=== PATIENT | female | born 1950 | race Caucasian/White ===

== ENCOUNTER → 2016-09-18 | Outpatient (CLI) | payer OTHER ==
[~2016-09-18] MED LIST: /PANT40TA PO; DILA2TAB PO; DIPH50CA PO; DOXY75CA3 PO; LEVS0.123 PO; MIRA255PW PO; REGL10TA6 PO; SENO8.6T9 PO; SING4GRA PO; TENO25TA PO; TRAZ50TA2 PO; VITA250L PO; WELLTAB PO
--- NOTE | 2016-09-24 00:13 | ECWPNPC ---
PATIENT NAME: RICKY GOLDMAN : 1950 GENDER: FEMALE VISIT DATE: 09/18/2016 DISCHARGE DATE: 09/18/16 1141 VISIT LOCKED DATE TIME: PHYSICIAN: ROSA M MCCORMACK RESOURCE: ROSA M MCCORMACK REASON FOR APPOINTMENT 1. BACK PAIN HISTORY OF PRESENT ILLNESS HISTORY OF PRESENT ILLNESS: PAIN THE PATIENT DESCRIBES THE PAIN... 66 YEAR OLD FEMALE PATIENT WITH HISTORY OF CHRONIC BACK PAIN. PATIENT DESCRIBES THE PAIN ACHING, SORE, AND IT COMES AND GOES WITH A PAIN SCORE OF 4/10. PAIN REPORTS THAT THE GABAPENTIN NO LONGER MAKES HER DIZZY, LIGHT HEADED, AND FEELING FOGGY. PATIENT STATES THAT THE GABAPENTIN IS ALSO HELPING WITH THE PAIN IN THE LOWER EXTREMITIES. PATIENT REPORTS OF SLEEPING A LOT BETTER. PATIENT INDICATES THAT IBUPROFEN DOES MAKE HER STOMACH UPSET AND THAT SHE REACTS BADLY TO A LOT OF MEDICATIONS. PATIENT STATES THAT SKETCHING AND VOGA DOES PROVIDE HER WITH SOME PAIN RELIEF. PATIENT REPORTS THAT DILAUDID DID HELP HER GREALTY WITH HER PAIN AND THAT SHE SAW GOOD PAIN RELIEF. PATIENT DENIES UNEXPLAINABLE WEIGHT LOSS, FEVER, CHILLS, NEW CHANGES ON HER URINARY OR BOWEL CONTROL. FALL RISK SCREENING: SCREENING :NO FALLS IN THE PAST YEAR CURRENT MEDICATIONS TAKING GABAPENTIN 300 MG CAPSULE 1 CAPSULE ORALLY 300 MGS IN AM, PM AND 600MGS AT BEDTIME TAKING TRAZODONE 50 50MG TABLET 2 TABLETS ORAL BEFORE BEDTIME TAKING LISINOPRIL 2.5 2.5 MG TABLET ORAL DAILY TAKING BUPROPION HCL (XL) 300 MG TABLET EXTENDED RELEASE 24 HOUR 1 TABLET IN THE MORNING ORALLY ONCE A DAY TAKING OMEPRAZOLE 20MG 20MG TABLET ORAL BID TAKING LEVSIN 0.125 MG TABLET 1 TABLET BEFORE MEALS NEEDED ORALLY EVERY 4 HRS TAKING ONDANSETRON 8 MG TABLET DISPERSIBLE ORALLY PRN TAKING SENNA 8.6 MG CAPSULE 1-2 CAPSULES AT BEDTIME NEEDED ORALLY ONCE A DAY TAKING DIPHENHYDRAMINE HCL 25 MG CAPSULE 1-2 CAPSULE NEEDED ORALLY EVERY 6 HRS PRN TAKING RESTASIS 0.05 % EMULSION 1 NULL INTO AFFECTED EYE OPHTHALMIC TWICE A DAY TAKING MAGNESIUM SULFATE 1 TAB 400MGS ORAL DAILY NOT-TAKING DILAUDID 2 MG TABLET 1 TABLET NEEDED ORALLY DAY PRN FOR PAIN NOT-TAKING PAZEO 0.7 % SOLUTION 1 DROP INTO AFFECTED EYE OPHTHALMIC ONCE A DAY DISCONTINUED MAGNESIUM ASPARTATE 65 MG TABLET 1 TABLET ORALLY ONCE A DAY MEDICATION LIST REVIEWED AND RECONCILED WITH THE PATIENT PAST MEDICAL HISTORY HTN DEPRESSION HIATLE HERNIA GERD PANCREATITUS HEARING LOSS IBS LUPUS RIGHT WRIST FX BILATERAL ANLKE FX OSTEOARTHRITIS ASTHMA MRSA RIGHT HIP ALLERGIES PENICILLIN (FOR ALLERGIES USE ONLY): ANAPHYLAXIS VANCOMYCIN HCL: ANAPHYLAXIS SULFA (FOR ALLERGY USE ONLY): ANAPHYLAXIS LACTOSE INTOLERANTE: GI DISTRESS REGLAN: HYPERTENSION CLINDAMYCIN HCL COMPAZINE CODEINE SULFATE: RESPIRATORY DISTRESS/CONFUSION VERSED: RESPIRATORY DISTRESS/CONFUSION CEPHALOSPORINS: RASH HIVES ERTHROMYCOIN: RASH HIVES KEFLEX: RASH HIVES NSAIDS: GI DISTRESS ASPIRIN: GI DISTRESS MORPHINE: AGGRESSION, CONFUSION AND AGGITATION: SIDE EFFECTS SURGICAL HISTORY COLON RESCECTION SP SPONTAEOUS RUPTURE 1975 HYSTERECTOMY 1988 TOTAL LT HIP 1991 TOTAL RT HIP 1989 OVARIAN CYSTECTOMY 1987 FAMILY HISTORY NO FAMILY HISTORY DOCUMENTED. SOCIAL HISTORY GENERAL: TOBACCO USE ARE YOU A:NONSMOKER LEARNING BARRIERS / SPECIAL NEEDS ORIENTED TO PLAN OF CARE: PATIENT, PAIN MANAGEMENT PATIENT, ORIENTED TO PLAN OF CARE: PATIENT, PAIN MANAGEMENT PATIENT. NEW PATIENT PAIN DIARY TODAY'S VISITNOTES FROM 0-10, WHAT LEVEL IS YOUR PAIN TODAY?0 PAIN CLINIC PFS, CLERGY, PUBLIC HEALTH REFERRALS PFS REFERRAL NEEDED?NO CLERGY REFERRAL NEEDED?NO PUBLIC HEALTH REFERRAL NEEDED?NO WAS THE PROVIDER NOTIFIED OF ANY PERTINENT INFO?NO PFS REFERRAL NEEDED?NO CLERGY REFERRAL NEEDED?NO PUBLIC HEALTH REFERRAL NEEDED?NO WAS THE PROVIDER NOTIFIED OF ANY PERTINENT INFO?NO HOSPITALIZATION/MAJOR DIAGNOSTIC PROCEDURE MRSA TO RIGHT HIP 2009 REVIEW OF SYSTEMS CONSTITUTIONAL: ANY CHANGE IN YOUR MEDICAL CONDITION? NO . CHILLS NO . FEVER NO . INFECTION: DO YOU HAVE NEW INFECTIONS? NO . DO YOU HAVE HISTORY OF MRSA? NO . MUSCULOSKELETAL: ANY NEW PATTERNS OF PAIN OR NUMBNESS? NO . GASTROENTEROLOGY: ANY NEW CHANGE IN BOWEL CONTROL? NO . GENITOURINARY: ANY NEW CHANGE IN BLADDER CONTROL? NO . IS THERE A CHANCE YOU COULD BE ? NO . HEMATOLOGY/LYMPH: DO YOU TAKE ANY BLOOD THINNERS? (FOR EXAMPLE- COUMADIN, PLAVIX, AGGRENOX, PLATEL, PRADAXA, OR XARELTO) NO . WHEN WAS YOUR LAST DOSE? DATE: TIME: . NEUROLOGY: HAVE YOU FALLEN IN THE PAST 6 MONTHS? YES, MULTIPLE TIMES NO INJURIES . ANY NEW EXTREMITY NUMBNESS OR WEAKNESS? NO . CARDIOLOGY: DO YOU HAVE A PACEMAKER OR DEFIBRILLATOR? NO . RESPIRATORY: HAVE YOU BEEN SICK IN THE PAST WEEK? NO . FEVER NO . FLU LIKE SYMPTOMS? NO . COUGH NO . INTEGUMENTARY: DO YOU HAVE ANY RASHES OR OPEN SORES? NO . ALLERGIC/IMMUNO: ARE YOU ALLERGIC TO SHELLFISH OR IV DYE? YES, MOLKUS FAMILY(CLAMS, OYSTERS, SCALLOPS AND OCTIPUS) . ANY NEW ALLERGIES? NO . PSYCHIATRIC: DO YOU HAVE THOUGHTS OF HURTING YOURSELF OR SOMEONE ELSE? NO . ARE YOU ABUSED, NEGLECTED, OR IN AN UNSAFE ENVIRONMENT? NO . ENDOCRINOLOGY: ARE YOU DIABETIC? NO . OTHER: DO YOU NEED ANY PRESCRIPTIONS? YES, GABAPENTIN . IF YES, PLEASE LIST: ____ . ANY NEW PROBLEMS WITH YOUR MEDICATIONS? NO . WHEN DID YOU LAST EAT? ____ . WHEN DID YOU LAST DRINK? ____ . WHAT DID YOU LAST DRINK? ____ . NAME OF PERSON DRIVING YOU HOME? ____ . DO YOU HAVE ANY OTHER QUESTIONS OR CONCERNS YES, INCREASING BACK PAIN . REVIEWED BY: PROVIDER: ROSA M MCCORMACK MD . VITAL SIGNS WT 163 LBS, HT 64 IN, BMI 27.98 INDEX, BP 161/72 MM HG, HR 88 /MIN, RR 16 /MIN, TEMP 97.6 F, OXYGEN SAT % 98, NA INITIALS TL 0953, REVIEWED BY: AD. EXAMINATION : PATIENT IS ALERT O X 3 AND COOPERATIVE. PATIENT HAS TENDERNESS IN THE LUMBAR PARASPINAL MUSCLE GROUP. 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 ASSESSMENTS SPONDYLOSIS WITHOUT MYELOPATHY OR RADICULOPATHY, LUMBAR REGION - M47.816 (PRIMARY) SPONDYLOSIS WITHOUT MYELOPATHY OR RADICULOPATHY, LUMBOSACRAL REGION - M47.817 TREATMENT SPONDYLOSIS WITHOUT MYELOPATHY OR RADICULOPATHY, LUMBAR REGION NOTES: WE DISCUSSED SEVERAL ISSUES WITH MS. GOLDMAN'S PAIN MANAGEMENT CASE. PATIENT IS A CANDIDATE FOR A LUMBAR FACET BLOCK THERAPEUTIC INJECTION. PATIENT EXPRESSED THAT SHE HAS SOME CONCERNS ABOUT STEROID INJECTIONS. PATIENT STATES THAT HER PAIN IS TOO INFREQUENT AT THE MOMENT AND WOULD LIKE TO HOLD OFF ON ANY INJECTIONS FOR NOW. PATIENT WILL RECEIVE A REFILL OF GABAPENTIN TODAY AND PATIENT WILL ALSO START ON DILAUDID. PATIENT WAS ADVISED TO BE CAREFUL WHY TAKING OPIOID WITH OTHER MEDICATIONS SUCH XANAX AND ANY ALCOHOLIC DRINKS IT CAN CAUSE BREATHING PROBLEMS. PATIENT WILL SIGN THE NARCOTIC AGREEMENT TODAY. PATIENT WILL FOLLOW UP WITH ME IN 6 WEEKS. INSTRUCTIONS WERE GIVEN, QUESTIONS WERE ANSWERED, PATIENT REPORTS UNDERSTANDING AND AGREES WITH THE PLAN. I, INDIGO MEJIA, DOCUMENTED THE ABOVE INFORMATION ACTING A SCRIBE FOR DR. MCCORMACK. I HAVE REVIEWED THE ABOVE DOCUMENT, WRITTEN BY INDIGO MEJIA SCRIBE AND I VERIFY THAT IT IS ACCURATE. OTHERS REFILL DILAUDID TABLET, 2 MG, 1 TABLET NEEDED, ORALLY CODE D FOR CHRONIC PAIN, DAY PRN FOR PAIN MDD1, 60 DAYS, 8, REFILLS 0 REFILL GABAPENTIN CAPSULE, 300 MG, 1 CAPSULE, ORALLY, FOUR TIMES DAILY FOR PAIN MDD4, 30 DAY(S), 120, REFILLS 2 PROCEDURE CODES FA211 ESTABILISHED PATIENT [facility] FACILITY CHARGE G1230 PAIN ASSESS POS TOOL F/U PLAN DOC G8427 DOC MEDS VERIFIED W/PT OR RE FOLLOW UP 6 WEEKS ELECTRONICALLY SIGNED BY ROSA M MCCORMACK MD ON 09/23/2016 AT 11:04 PM EST DISCLAIMER : THIS IS A VISIT SUMMARY EXTRACTED FROM THE [employer] CHART. IT IS NOT A COPY OF THE [employer] PROGRESS NOTE. STEFANIED
== END ==
LOC: M PAIN 09:40
PROVIDERS: ATTEND Anesthesiology
DX: Z09 Encounter for follow-up examination after completed treatment for conditions other than malignant neoplasm (principal); G89.29 Other chronic pain; M47.816 Spondylosis without myelopathy or radiculopathy, lumbar region; M47.817 Spondylosis without myelopathy or radiculopathy, lumbosacral region; I10 Essential (primary) hypertension; F32.9 Major depressive disorder, single episode, unspecified; K44.9 Diaphragmatic hernia without obstruction or gangrene; M32.9 Systemic lupus erythematosus, unspecified; K21.9 Gastro-esophageal reflux disease without esophagitis; K58.9 Irritable bowel syndrome, unspecified; M19.90 Unspecified osteoarthritis, unspecified site; J45.909 Unspecified asthma, uncomplicated; H91.90 Unspecified hearing loss, unspecified ear; Z96.643 Presence of artificial hip joint, bilateral; E73.9 Lactose intolerance, unspecified; Z88.0 Allergy status to penicillin; Z88.2 Allergy status to sulfonamides; Z88.4 Allergy status to anesthetic agent; Z88.8 Allergy status to other drugs, medicaments and biological substances; Z79.899 Other long term (current) drug therapy; Z87.19 Personal history of other diseases of the digestive system; Z86.14 Personal history of Methicillin resistant Staphylococcus aureus infection

== ENCOUNTER 2016-10-27 15:31 | Emergency (ER) | payer OTHER ==
[2016-10-27] MEDS ORDERED: HYDROmorphone HCL 1 MG/ML SYRINGE (J1170) As Ordered ONE (16:19)
[2016-10-27 16:22] LABS: BASO # 0.1 K/mm3 (0.0-0.2); BASO % 0.9 % (0.0-1.0); EOS # 0.2 K/mm3 (0.0-0.50); EOS % 2.1 % (0.0-3.0); LARGE UNSTAINED CELL # 0.1 K/mm3 (0.0-0.4); LARGE UNSTAINED CELL % 1.2 % (0.0-4.0); LYMPH % 25.5 % (24.0-44.0); MEAN CORPUSCULAR HEMOGLOBIN 30.5 pg (27.0-33.0); MEAN CORPUSCULAR VOLUME 92.4 fl (80.0-96.0); MONO # 0.5 K/mm3 (0.0-0.8); MONO % 6.8 % (0.0-5.0); NEUTROPHILS # 4.7 K/mm3 (1.8-7.7); NEUTROPHILS % 63.5 % (36.0-66.0); PLATELET COUNT, AUTOMATED 324 k/mm3 (150-450); RED CELL DISTRIBUTION WIDTH 13.5 % (11.5-14.5); WHITE BLOOD COUNT 7.4 K/mm3 (4.0-10.0)
[2016-10-27 16:42] LABS: ALBUMIN 3.9 GM/DL (3.2-5.2); ALBUMIN/GLOBULIN RATIO 1.26 (1.00-1.93); ALKALINE PHOSPHATASE 105 U/L (45-117); ALT/SGPT 22 U/L (12-78); ANION GAP 9 MEQ/L (8-16); AST/SGOT 22 U/L (15-37); BILIRUBIN,DIRECT < 0.1 MG/DL (0.0-0.2); BILIRUBIN,TOTAL 0.3 MG/DL (0.2-1.0); BLOOD UREA NITROGEN 22 MG/DL (7-18); CALCIUM LEVEL 8.6 MG/DL (8.8-10.2); CARBON DIOXIDE LEVEL 26 MEQ/L (21-32); CHLORIDE LEVEL 106 MEQ/L (98-107); CREATININE FOR GFR 1.02 MG/DL (0.55-1.02); GLOMERULAR FILTRATION RATE 57.7 (>45); GLUCOSE, FASTING 119 MG/DL (80-110); POTASSIUM SERUM 4.1 MEQ/L (3.5-5.1); SODIUM LEVEL 141 MEQ/L (136-145)
[2016-10-27] MEDS ORDERED: ISOVUE-370 76% 100ML VIAL (Q9967) As Ordered ONE (16:45)
--- NOTE | 2016-10-27 17:11 | REP ---
Clinical: Trauma . Comparison: 09/24/2013 . Findings: The ventricles, sulci, and cisterns are normal in position and appearance. Vera-white differentiation is maintained. No acute intracranial hemorrhage, mass/mass effect, pathology or trauma/injury. No evidence for acute infarction. No extra-axial fluid collection. Calvarium is intact. Paranasal sinuses and mastoid air cells are clear. Impression: Normal noncontrast head CT. No evidence for acute intracranial pathology or trauma/injury. Signed by Anatoliy Whaley MD 10/27/2016 05:03 P
--- NOTE | 2016-10-27 17:14 | REP ---
Clinical: Trauma. Technique: Axial images from the skull base to the thoracic inlet with coronal and sagittal re-formations. Findings: Alignment is maintained and there is no evidence for acute fracture / compression injury or subluxation. Moderate to advanced multilevel degenerative disc osteophyte complexes include osteophytosis, endplate sclerosis/irregularity and disc space narrowing as well as posterior osteophytes and hypertrophic facet changes. Findings are most pronounced at the C5-6, C6-7 and C4-5 levels. Spinal canal is patent posterior elements are intact paravertebral soft tissues are normal Impression: Moderate to advanced multilevel degenerative disc osteophyte complexes. No evidence for acute fracture / compression injury or subluxation. Signed by Anatoliy Whaley MD 10/27/2016 05:05 P
--- NOTE | 2016-10-27 17:24 | REP ---
Clinical: Trauma. Technique: Axial contrast enhanced images from the lung bases to the pubic symphysis using 100 ml Isovue 370 intravenous contrast material with coronal and sagittal re-formations. Findings: Lung bases demonstrate chronic changes. Visualized heart and pericardium grossly normal. Small hiatal hernia noted. There is no evidence for solid organ injury. Liver, spleen, pancreas, gallbladder, bilateral adrenal glands and kidneys are normal. Incidental note is made of a subcentimeter hepatic cyst in the medial left lobe (image 18). The visualized enteric system is without obstruction or acute inflammatory process. Normal terminal ileum and appendix identified in the right lower quadrant. Diffuse diverticulosis noted without obvious acute diverticulitis. Fat containing supraumbilical ventral hernia. Evaluation of the pelvic structures is significantly limited due to metallic streak artifact from bilateral hip prosthesis. There is no obvious ascites, free air or adenopathy. Atherosclerotic changes of the aorta and vasculature noted without aneurysm. Musculoskeletal structures appear intact without evidence for acute fracture. Impression: No evidence for solid organ injury. No evidence for musculoskeletal injury. Hiatal hernia. Fat containing supraumbilical ventral hernia. Diffuse colonic diverticulosis without acute diverticulitis. Signed by Anatoliy Whaley MD 10/27/2016 05:16 P
--- NOTE | 2016-10-27 17:28 | REP ---
Clinical: Trauma. Technique: Axial contrast enhanced images from the thoracic inlet to the upper abdomen using 100 ml Isovue 370 intravenous contrast material with multiplanar re-formations. Findings: The bilateral lung yoon demonstrate mild chronic posterior basilar interstitial changes and minimal perihilar bronchiectasis. There is no consolidation/contusion, pleural effusion or pneumothorax. No significant nodule or mass lesion appreciated. The mediastinum demonstrates normal thoracic aorta and heart/pericardium. No mediastinal injury is identified. No axillary, hilar, or mediastinal adenopathy noted. Incidental note is made of a moderate hiatal hernia. Skeletal structures demonstrate degenerative changes without focal osseous abnormality or evidence for trauma/injury Impression: Minimal chronic interstitial changes. Hiatal hernia. No acute mediastinal or pleuroparenchymal process or trauma/injury appreciated. Signed by Anatoliy Whaley MD 10/27/2016 05:19 P
--- NOTE | 2016-10-27 17:41 | REP ---
Clinical: Trauma . Technique: AP, lateral, bilateral oblique views of the right elbow. Findings: No acute fracture or dislocation is appreciated. Joint spaces and surrounding soft tissues appear normal. Lateral view demonstrates normal positioning to the anterior and posterior fat pads without evidence for effusion/hemarthrosis. No subcutaneous emphysema or foreign body identified. Venous catheter in the antecubital fossa appears cannot and should be evaluated. Impression: No acute fracture or dislocation. Venous catheter in the antecubital fossa appears kinked and should be evaluated. Signed by Anatoliy Whaley MD 10/27/2016 05:32 P
--- NOTE | 2016-10-27 18:02 | EDDOCDS ---
Physician Documentation [facility] Name: Juana Nelson Age: 66 yrs Sex: Female : 1950 Arrival Date: 10/27/2016 Time: 15:31 Bed 8 Private MD: Dianne Molina Disposition: 10/27/16 17:44 Discharged to Home/Self Care. Impression: Struck by horse, Contusion of thorax, Contusion of right elbow. - Condition is Stable. - Discharge Instructions: Chest Contusion, Elbow Contusion. - Medication Reconciliation, Local Pharmacy Hours form. - Follow up: Dianne Molina; When: 1 - 2 days; Reason: Recheck today's complaints. - Problem is new. - Symptoms are unchanged. - Notes: You were seen in the ED for being struck by a horse with pain in the right chest and elbow. Bloodwork along with EKG of the heart showed no acute findings. Xrays of the right elbow showed no fractures. CT scan of the head, neck, chest, abdomen and pelvis showed no internal injuries. As you are feeling better you may return home. Call your primary doctor to discuss the ED visit and arrange to be seen in the office this week for recheck. Return to the ED for any worsening chest pain, trouble breathing, abdominal pain, new pain in the arms or legs, or any other concerns. Historical: - Allergies: OPIOID ANALGESICSexcept dilaudid; PENICILLINS; erythromycin; SULFA (SULFONAMIDES); Compazine; Versed; Codeine Sulfate; CEPHALOSPORINS; - Home Meds: 1. hydromorphone 2 mg Oral tab 1 tab weekly 2. lisinopril 2.5 mg Oral tab 1 tab once daily - PMHx: bone staff infection; - PSHx: Hip Arthroplasty, Left; Hip Arthroplasty, Right; Hysterectomy; Sinus Surgery; Colon Resection; - Social history: Smoking status: Patient states was never smoker of tobacco. No barriers to communication noted, The patient speaks fluent Estonian. - Family history: Not pertinent. - : The pt / caregiver states he / she is not on anticoagulants. Home medication list is obtained from the patient. - Exposure Risk Screening:: None identified. Vital Signs: 10/27 15:33 BP 198 / 78; Pulse 101; Resp 18; Temp 96.9; Pulse Ox 97% ; Weight 72.57 kg / 159.99 cmb lbs; Height 5 ft. 5 in. (165.10 cm); Pain 7/10; 16:13 BP 169 / 79 (auto/); aa3 16:38 Pulse 84 MON; Pulse Ox 94% ; aa3 16:39 BP 131 / 71 (auto/); aa3 16:41 BP 131 / 71; Pulse 86; Resp 16; Pulse Ox 95% on R/A; Pain 2/10; aa3 16:42 Pulse 80 MON; Pulse Ox 96% ; aa3 16:43 BP 121 / 59 (auto/); aa3 17:12 Pulse 82 MON; Pulse Ox 94% ; aa3 17:13 BP 173 / 79 (auto/); aa3 17:42 Pulse 74 MON; Pulse Ox 96% ; aa3 17:43 BP 159 / 76 (auto/); aa3 17:50 Pulse 74 MON; Pulse Ox 97% ; aa3 17:51 BP 157 / 80 (auto/); Resp 18; Temp 96.8(O); Pulse Ox 97% on R/A; Pain 1/10; aa3 15:33 Body Mass Index 26.63 (72.57 kg, 165.10 cm) cmb MDM: 15:55 Plate Worker/Pulse Ox/q 30 min VS ordered. br1 15:55 IV Saline Lock ordered. br1 15:55 Rhythm Strip to chart ordered. br1 15:55 Undress patient appropriately for examination ordered. br1 15:55 Basic Metabolic Profile Ordered. EDMS 15:55 CBC with Diff Ordered. EDMS 15:55 Cardiac Injury Profile Ordered. EDMS 15:55 Troponin Ordered. EDMS 15:56 ECG WITH READING ER PHYS+CARDIAG ordered. EDMS 16:07 Dilaudid - HYDROmorphone 0.5 mg IVP once ordered. br1 16:08 CT Head Without Contrast Ordered. EDMS 16:08 CT Spine,Cervical W/o Contrast Ordered. EDMS 16:08 CT Chest With Contrast Ordered. EDMS 16:08 CT ABD & PELVIS: IV Contrast Only Ordered. EDMS 16:12 LIPASE Ordered. EDMS 16:12 LIVER PROFILE Ordered. EDMS 16:12 Elbow, Complete Ordered. EDMS 16:16 Financial registration complete. [email or web address] 16:18 [facility] [place] Payment Agreement was scanned into [employer] and attached to record. [email or web address] 16:29 CBC with Diff Reviewed. br1 16:50 Basic Metabolic Profile Reviewed. br1 16:50 Cardiac Injury Profile Reviewed. br1 16:50 Troponin Reviewed. br1 16:50 LIPASE Reviewed. br1 16:50 LIVER PROFILE Reviewed. br1 Administered Medications: 16:25 Drug: Dilaudid - HYDROmorphone 0.5 mg [hydromorphone 1 mg/mL injection syringe (0.5 aa3 mL)] Route: IVP; Site: right antecubital; 16:41 Follow up: BP 131 / 71; Pulse 86 bpm; Resp 16 bpm; Pulse Ox 95% RA; Pain 2/10 Adult aa3 Signatures: Dispatcher [employer] EDMS Meek Floyd MD MD br1 Sasha Davison RN RN aa3 Sally Lewis RN RN [id number] Eliane Trotter, Reg Reg [email or web address] The chart was reviewed and I authenticate all verbal orders and agree with the evaluation and treatment provided.Corrections: (The following items were deleted from the chart) 16:11 16:06 LIVER PROFILE+LAB ordered. EDMS EDMS 16:11 16:06 LIPASE+LAB ordered. EDMS EDMS Attachments: 16:18 [facility] [place] Payment Agreement [email or web address]
--- NOTE | 2016-10-27 18:02 | EDDOCDS ---
Nurse's Notes [facility] Name: Juana Nelson Age: 66 yrs Sex: Female : 1950 Arrival Date: 10/27/2016 Time: 15:31 Bed 8 Private MD: Dianne Molina Diagnosis: Struck by horse;Contusion of thorax;Contusion of right elbow Presentation: 10/27 15:41 Presenting complaint: Patient states: that she was crushed inbetween a wall and a ms18 2000lb horse. Pt states that she is having pain in her chest area at this time. Pt was also knocked down by the horse onto a concrete floor, pt states that she took the fall on her R elbow and R hip. Adult Sepsis Screening: The patient does not have new or worsening altered mentation. Patient's respiratory rate is less than 22. Systolic blood pressure is greater than 100. Patient has a qSOFA score of 0- Negative Sepsis Screen. Suicide/Homicide risk assessment- the patient denies having any suicidal and/or homicidal ideations and does not present with any other emotional, behavioral or mental health complaints. Status: Patient is not a food service director or dependent. Transition of care: patient was not received from another setting of care. 15:41 Acuity: REED Level 2 ms18 15:41 Method Of Arrival: Walkin/Carried/Asstd ms18 15:48 Red Flag criteria, patient assessed and taken directly to a bed. ms18 Triage Assessment: 15:53 General: Appears in no apparent distress, uncomfortable, Behavior is agitated. Pain: ms18 Location: chest Pain currently is 4 out of 10 on a pain scale. At worst was 7 out of 10 on a pain scale. Neurological: Level of Consciousness is awake, alert, obeys commands, Oriented to person, place, time. Respiratory: Airway is patent Respiratory effort is even, unlabored, Reports shortness of breath. Derm: Skin is pink, warm & dry. Historical: - Allergies: OPIOID ANALGESICSexcept dilaudid; PENICILLINS; erythromycin; SULFA (SULFONAMIDES); Compazine; Versed; Codeine Sulfate; CEPHALOSPORINS; - Home Meds: 1. hydromorphone 2 mg Oral tab 1 tab weekly 2. lisinopril 2.5 mg Oral tab 1 tab once daily - PMHx: bone staff infection; - PSHx: Hip Arthroplasty, Left; Hip Arthroplasty, Right; Hysterectomy; Sinus Surgery; Colon Resection; - Social history: Smoking status: Patient states was never smoker of tobacco. No barriers to communication noted, The patient speaks fluent Wolof. - Family history: Not pertinent. - : The pt / caregiver states he / she is not on anticoagulants. Home medication list is obtained from the patient. - Exposure Risk Screening:: None identified. Screenin:13 Screening information is obtained from the patient. Fall risk: No risks identified. aa3 Assistance ADL's: requires no assistance with activities of daily living. Abuse/DV Screen: The patient / caregiver reports he/she is: not in a situation that causes fear, pain or injury. Nutritional screening: No deficits noted. Advance Directives: Currently, there is no health care proxy. There is no active DNR order. There is no living will. home support is adequate. Assessment: 16:14 General: Appears in no apparent distress, Behavior is appropriate for age, cooperative. aa3 Pain: Location: anterior aspect of right upper chest Pain currently is 4 out of 10 on a pain scale. Neurological: Level of Consciousness is awake, alert, Oriented to person, place, time. Cardiovascular: Capillary refill < 3 seconds. Respiratory: Airway is patent Respiratory effort is even, unlabored, Respiratory pattern is regular, symmetrical, Breath sounds are clear bilaterally. GI: Abdomen is non- distended. Derm: Skin is intact, is healthy with good turgor, Skin is pink, warm & dry. Musculoskeletal: No deficits noted. 17:12 General: Patient currently in CT. Patient states pain is decreased to 3/10, and it is aa3 difficult to tell acute from her chronic pain. Patient is alert and oriented, no distress noted, no apparent change in condition. Safety precautions in place, respirations are even and unlabored, will continue to monitor.. 17:58 General: Appears in no apparent distress, comfortable, Behavior is appropriate for age, aa3 cooperative. Pain: Location: right elbow Pain currently is 1 out of 10 on a pain scale. Neurological: Level of Consciousness is awake, alert, Oriented to person, place, time. Cardiovascular: Capillary refill < 3 seconds. Respiratory: Airway is patent Respiratory effort is even, unlabored, Respiratory pattern is regular, symmetrical. GI:. Derm: Skin is intact, is healthy with good turgor, Skin is pink, warm & dry. Musculoskeletal: No deficits noted. Vital Signs: 15:33 BP 198 / 78; Pulse 101; Resp 18; Temp 96.9; Pulse Ox 97% ; Weight 72.57 kg; Height 5 cmb ft. 5 in. (165.10 cm); Pain 7/10; 16:13 BP 169 / 79 (auto/); aa3 16:38 Pulse 84 MON; Pulse Ox 94% ; aa3 16:39 BP 131 / 71 (auto/); aa3 16:41 BP 131 / 71; Pulse 86; Resp 16; Pulse Ox 95% on R/A; Pain 2/10; aa3 16:42 Pulse 80 MON; Pulse Ox 96% ; aa3 16:43 BP 121 / 59 (auto/); aa3 17:12 Pulse 82 MON; Pulse Ox 94% ; aa3 17:13 BP 173 / 79 (auto/); aa3 17:42 Pulse 74 MON; Pulse Ox 96% ; aa3 17:43 BP 159 / 76 (auto/); aa3 17:50 Pulse 74 MON; Pulse Ox 97% ; aa3 17:51 BP 157 / 80 (auto/); Resp 18; Temp 96.8(O); Pulse Ox 97% on R/A; Pain 1/10; aa3 15:33 Body Mass Index 26.63 (72.57 kg, 165.10 cm) cmb Vitals: 15:33 Log In Time: October 27, 2016 at 15:31. cmb ED Course: 15:32 Patient visited by Shivani Brand. cmb 15:32 Patient moved to Waiting cmb 15:33 Dianne Molina is Private Physician. cmb 15:35 Patient moved to Pre RCE cmb 15:41 Patient visited by Sally Lewis RN. ms18 15:41 [facility] dk1 15:41 Meek Floyd MD is Attending Physician. dk1 15:41 Patient moved to Triage 2 sew 15:46 Triage Initiated ms18 15:54 Marisela Marinelli,RN is Primary Nurse. ms18 15:54 Meek Floyd MD is Attending Physician. br1 15:54 Patient moved to 8 ms18 16:05 Patient visited by Meek Floyd MD. br1 16:13 The patient / caregiver is instructed regarding the plan of care and ED course. Cardiac aa3 monitor on. Pulse ox on. NIBP on. 16:13 Inserted peripheral IV: 20gauge IV in right antecubital area Patient tolerated the aa3 procedure well. Labs drawn. (by ED staff). Sent per order to lab. 16:14 LIVER PROFILE Sent. aa3 16:14 LIPASE Sent. aa3 16:14 Basic Metabolic Profile Sent. aa3 16:14 CBC with Diff Sent. aa3 16:14 Cardiac Injury Profile Sent. aa3 16:14 Troponin Sent. aa3 16:16 Patient visited by Stevo Zapata PCA. jrd 16:16 EKG done. (by ED staff). Reviewed by Meek Floyd MD. jrd 16:17 Patient visited by Sasha Davison,PEDRO. aa3 16:18 [facility] Payment Agreement was scanned into [employer] and attached to record. ks16 16:22 Patient name changed from Juana\S\\S\Bitter\S\ to Juaan\S\ \S\Bitter. EDMS 16:42 Patient visited by Sasha Davison,PEDRO. aa3 17:14 Patient visited by Sasha Davison,PEDRO. aa3 17:14 CT Head Without Contrast Returned. EDMS 17:41 Patient visited by Meek Floyd MD. br1 17:43 Dianne Molina is Referral Physician. br1 17:51 Discontinued IV intact, bleeding controlled, No redness/swelling at site. No procedures aa3 done that require assistance. 17:57 CT Spine,Cervical W/o Contrast Returned. EDMS 17:57 CT ABD & PELVIS: IV Contrast Only Returned. EDMS 17:57 CT Chest With Contrast Returned. EDMS 17:57 Elbow, Complete Returned. EDMS Administered Medications: 16:25 Drug: Dilaudid - HYDROmorphone 0.5 mg [hydromorphone 1 mg/mL injection syringe (0.5 aa3 mL)] Route: IVP; Site: right antecubital; 16:41 Follow up: BP 131 / 71; Pulse 86 bpm; Resp 16 bpm; Pulse Ox 95% RA; Pain 2/10 Adult aa3 Order Results: Lab Order: Basic Metabolic Profile; SPEC'M 10/27/16 16:11 Test: GLUCOSE, FASTING; Value: 119; Range: 80-110; Abnormal: Above high normal; Units: MG/DL; Status: F Test: BLOOD UREA NITROGEN; Value: 22; Range: 7-18; Abnormal: Above high normal; Units: MG/DL; Status: F Test: CREATININE FOR GFR; Value: 1.02; Range: 0.55-1.02; Units: MG/DL; Status: F Test: GLOMERULAR FILTRATION RATE; Value: 57.7; Range: >45; Status: F Test: SODIUM LEVEL; Value: 141; Range: 136-145; Units: MEQ/L; Status: F Test: POTASSIUM SERUM; Value: 4.1; Range: 3.5-5.1; Units: MEQ/L; Status: F Test: CHLORIDE LEVEL; Value: 106; Range: 98-107; Units: MEQ/L; Status: F Test: CARBON DIOXIDE LEVEL; Value: 26; Range: 21-32; Units: MEQ/L; Status: F Test: ANION GAP; Value: 9; Range: 8-16; Units: MEQ/L; Status: F Test: CALCIUM LEVEL; Value: 8.6; Range: 8.8-10.2; Abnormal: Below low normal; Units: MG/DL; Status: F Test Note: ; Units are mL/min/1.73 m2 Chronic Kidney Disease Staging per NKF: Stage I & II GFR >=60 Normal to Mildly Decreased Stage III GFR 30-59 Moderately Decreased Stage IV GFR 15-29 Severely Decreased Stage V GFR <15 Very Little GFR Left ESRD GFR <15 on MARKETING DIRECTOR Lab Order: CBC with Diff; SPEC'M 10/27/16 16:11 Test: WHITE BLOOD COUNT; Value: 7.4; Range: 4.0-10.0; Units: K/mm3; Status: F Test: RED BLOOD COUNT; Value: 4.42; Range: 4.00-5.40; Units: M/mm3; Status: F Test: HEMOGLOBIN; Value: 13.5; Range: 12.0-16.0; Units: g/dl; Status: F Test: HEMATOCRIT; Value: 40.8; Range: 36.0-47.0; Units: %; Status: F Test: MEAN CORPUSCULAR VOLUME; Value: 92.4; Range: 80.0-96.0; Units: fl; Status: F Test: MEAN CORPUSCULAR HEMOGLOBIN; Value: 30.5; Range: 27.0-33.0; Units: pg; Status: F Test: MEAN CORPUSCULAR HGB CONC; Value: 33.0; Range: 32.0-36.5; Units: g/dl; Status: F Test: RED CELL DISTRIBUTION WIDTH; Value: 13.5; Range: 11.5-14.5; Units: %; Status: F Test: PLATELET COUNT, AUTOMATED; Value: 324; Range: 150-450; Units: k/mm3; Status: F Test: NEUTROPHILS %; Value: 63.5; Range: 36.0-66.0; Units: %; Status: F Test: LYMPH %; Value: 25.5; Range: 24.0-44.0; Units: %; Status: F Test: MONO %; Value: 6.8; Range: 0.0-5.0; Abnormal: Above high normal; Units: %; Status: F Test: EOS %; Value: 2.1; Range: 0.0-3.0; Units: %; Status: F Test: BASO %; Value: 0.9; Range: 0.0-1.0; Units: %; Status: F Test: LARGE UNSTAINED CELL %; Value: 1.2; Range: 0.0-4.0; Units: %; Status: F Test: NEUTROPHILS #; Value: 4.7; Range: 1.8-7.7; Units: K/mm3; Status: F Test: LYMPH #; Value: 2.0; Range: 1.5-4.5; Units: K/mm3; Status: F Test: MONO #; Value: 0.5; Range: 0.0-0.8; Units: K/mm3; Status: F Test: EOS #; Value: 0.2; Range: 0.0-0.50; Units: K/mm3; Status: F Test: BASO #; Value: 0.1; Range: 0.0-0.2; Units: K/mm3; Status: F Test: LARGE UNSTAINED CELL #; Value: 0.1; Range: 0.0-0.4; Units: K/mm3; Status: F Lab Order: Cardiac Injury Profile; [facility] 10/27/16 16:11 Test: CPK CREATINE PHOSPHOKINASE; Value: 180; Range: 26-192; Units: U/L; Status: F Test: CK-MB VALUE MASS; Value: 5.8; Range: 0.0-3.6; Abnormal: Above high normal; Units: NG/ML; Status: F Test: MB/CK RELATIVE INDEX; Value: 3.22; Range: < OR =4; Status: F Test Note: ; DIAGNOSIS CRITERIA MMB ng/ml Relative Index (RI) NON-AMI < or = 5 N/A VERA ZONE > 5 < or = 4 AMI > 5 > 4 Lab Order: Troponin; [facility] 10/27/16 16:11 Test: TROPONIN I; Value: < 0.02; Range: < 0.10; Units: NG/ML; Status: F Test Note: ; Troponin I Reference Interval for [place] LOCI: 99th Percentile= 0.00-0.045 ng/ml Risk Stratification: <= 0.10 ng/ml Decreased Risk for Adverse Clinical Events. 0.10-1.50 ng/ml Increased Risk for Adverse Clinical Events. Evaluation of additional criterion and/or repeat testing in 2-6 hours is suggested to rule out myocardial damage. >= 1.50 ng/ml Indicative of Myocardial Injury. Lab Order: LIPASE; [facility] 10/27/16 16:11 Test: LIPASE; Value: 256; Range: 73-393; Units: U/L; Status: F Lab Order: LIVER PROFILE; [facility] 10/27/16 16:11 Test: AST/SGOT; Value: 22; Range: 15-37; Units: U/L; Status: F Test: ALT/SGPT; Value: 22; Range: 12-78; Units: U/L; Status: F Test: ALKALINE PHOSPHATASE; Value: 105; Range: 45-117; Units: U/L; Status: F Test: BILIRUBIN,TOTAL; Value: 0.3; Range: 0.2-1.0; Units: MG/DL; Status: F Test: BILIRUBIN,DIRECT; Value: < 0.1; Range: 0.0-0.2; Units: MG/DL; Status: F Test: TOTAL PROTEIN; Value: 7.0; Range: 6.4-8.2; Units: GM/DL; Status: F Test: ALBUMIN; Value: 3.9; Range: 3.2-5.2; Units: GM/DL; Status: F Test: ALBUMIN/GLOBULIN RATIO; Value: 1.26; Range: 1.00-1.93; Status: F Radiology Order: CT Head Without Contrast Test: CT Head Without Contrast REASON FOR EXAMINATION: Trauma; Clinical: Trauma .; ; Comparison: 09/24/2013 .; ; Findings:; The ventricles, sulci, and cisterns are normal in position and appearance.; Vera-white differentiation is maintained. No acute intracranial hemorrhage,; mass/mass effect, pathology or trauma/injury. No evidence for acute infarction.; No extra-axial fluid collection. Calvarium is intact. Paranasal sinuses and; mastoid air cells are clear.; ; Impression:; Normal noncontrast head CT.; No evidence for acute intracranial pathology or trauma/injury.; ; ; Signed by; Anatoliy Whaley MD 10/27/2016 05:03 P; Radiology Order: CT Spine,Cervical W/o Contrast Test: CT Spine,Cervical W/o Contrast REASON FOR EXAMINATION: Trauma; Clinical: Trauma.; ; Technique: Axial images from the skull base to the thoracic inlet with coronal; and sagittal re-formations.; ; Findings:; Alignment is maintained and there is no evidence for acute fracture / compression; injury or subluxation. Moderate to advanced multilevel degenerative disc; osteophyte complexes include osteophytosis, endplate sclerosis/irregularity and; disc space narrowing as well as posterior osteophytes and hypertrophic facet; changes. Findings are most pronounced at the C5-6, C6-7 and C4-5 levels. Spinal; canal is patent posterior elements are intact paravertebral soft tissues are; normal; ; Impression:; Moderate to advanced multilevel degenerative disc osteophyte complexes. No; evidence for acute fracture / compression injury or subluxation.; ; ; Signed by; Anatoliy Whaley MD 10/27/2016 05:05 P; Radiology Order: CT Chest With Contrast Test: CT Chest With Contrast REASON FOR EXAMINATION: Trauma; Clinical: Trauma.; ; Technique: Axial contrast enhanced images from the thoracic inlet to the upper; abdomen using 100 ml Isovue 370 intravenous contrast material with multiplanar; re-formations.; ; Findings:; The bilateral lung yoon demonstrate mild chronic posterior basilar interstitial; changes and minimal perihilar bronchiectasis. There is no; consolidation/contusion, pleural effusion or pneumothorax. No significant nodule; or mass lesion appreciated. The mediastinum demonstrates normal thoracic aorta; and heart/pericardium. No mediastinal injury is identified. No axillary, hilar,; or mediastinal adenopathy noted. Incidental note is made of a moderate hiatal; hernia. Skeletal structures demonstrate degenerative changes without focal; osseous abnormality or evidence for trauma/injury; ; Impression:; Minimal chronic interstitial changes.; Hiatal hernia.; No acute mediastinal or pleuroparenchymal process or trauma/injury appreciated.; ; ; Signed by; Anatoliy Whaley MD 10/27/2016 05:19 P; Radiology Order: CT ABD & PELVIS: IV Contrast Only Test: CT ABD & PELVIS: IV Contrast Only REASON FOR EXAMINATION: Trauma; Clinical: Trauma.; ; Technique: Axial contrast enhanced images from the lung bases to the pubic; symphysis using 100 ml Isovue 370 intravenous contrast material with coronal and; sagittal re-formations.; ; Findings:; Lung bases demonstrate chronic changes. Visualized heart and pericardium grossly; normal. Small hiatal hernia noted.; ; There is no evidence for solid organ injury. Liver, spleen, pancreas,; gallbladder, bilateral adrenal glands and kidneys are normal. Incidental note is; made of a subcentimeter hepatic cyst in the medial left lobe (image 18). The; visualized enteric system is without obstruction or acute inflammatory process.; Normal terminal ileum and appendix identified in the right lower quadrant.; Diffuse diverticulosis noted without obvious acute diverticulitis. Fat; containing supraumbilical ventral hernia. Evaluation of the pelvic structures is; significantly limited due to metallic streak artifact from bilateral hip; prosthesis. There is no obvious ascites, free air or adenopathy.; Atherosclerotic changes of the aorta and vasculature noted without aneurysm.; Musculoskeletal structures appear intact without evidence for acute fracture.; ; Impression:; No evidence for solid organ injury.; No evidence for musculoskeletal injury.; Hiatal hernia.; Fat containing supraumbilical ventral hernia.; Diffuse colonic diverticulosis without acute diverticulitis.; ; ; Signed by; Anatoliy Whaley MD 10/27/2016 05:16 P; Radiology Order: Elbow, Complete Test: Elbow, Complete REASON FOR EXAMINATION: Trauma; Clinical: Trauma .; ; Technique: AP, lateral, bilateral oblique views of the right elbow.; ; Findings:; No acute fracture or dislocation is appreciated. Joint spaces and surrounding; soft tissues appear normal. Lateral view demonstrates normal positioning to the; anterior and posterior fat pads without evidence for effusion/hemarthrosis. No; subcutaneous emphysema or foreign body identified. Venous catheter in the; antecubital fossa appears cannot and should be evaluated.; ; Impression:; No acute fracture or dislocation.; Venous catheter in the antecubital fossa appears kinked and should be evaluated.; ; ; Signed by; Anatoliy Whaley MD 10/27/2016 05:32 P; Outcome: 17:44 Discharge ordered by Provider. br1 17:51 Discharge Assessment: Patient awake and alert. Oriented to person, place and time. aa3 Patient verbalized understanding of disposition instructions. Patient has no functional deficits. patient administered narcotics - yes. Pt provided with safe discharge. The following High Risk Discharge criteria are identified: None. Discharged to home ambulatory, with family. Condition: good. Discharge instructions given to patient, Instructed on discharge instructions, follow up and referral plans. Demonstrated understanding of instructions, Pt was receptive of discharge instructions/ teaching. CT Study completed. Property :Personal belongings accompany Pt. 18:01 Patient left the ED. aa3 Signatures: Dispatcher [employer] EDMS Rickey Rosenthal, PAEliana PA-C dk1 Meek Floyd MD MD br1 Shivani Brand Sarah sew Asselin, Abby, RN RN aa3 Sally Lewis RN RN ms18 Stevo Zapata, NEEL FORMING TUBE SELECTOR Eliane Curtis, Reg Reg ks16 MTDD
--- NOTE | 2016-10-27 18:12 | ECGEPIP ---
Stationary ECG Study [facility] - ED Test Date: 2016-10-27 Pat Name: RICKY GOLDMAN Department: Room: - Gender: F Japanese Interpreter: urmila : 1950 Requested By: NAKUL Castaneda Order Number: [id number] Reading MD: Abhishek Pfeiffer Measurements Intervals [place] Rate: 89 P: 56 NV: 169 QRS: -12 QRSD: 82 T: 9 QT: 345 QTc: 422 Interpretive Statements SINUS RHYTHM WITH OCCASIONAL SUPRAVENTRICULAR PREMATURE COMPLEXES MINIMAL VOLTAGE CRITERIA FOR LVH, CONSIDER NORMAL VARIANT Electronically Signed On 10-27-2016 18:11:58 EST by Abhishek Pfeiffer
--- NOTE | 2016-10-29 19:01 | EDDOCDS ---
Physician Documentation [facility] Name: Juana Nelson Age: 66 yrs Sex: Female : 1950 Arrival Date: 10/27/2016 Time: 15:31 Bed 8 Private MD: Dianne Molina Disposition: 10/27/16 17:44 Discharged to Home/Self Care. Impression: Struck by horse, Contusion of thorax, Contusion of right elbow. - Condition is Stable. - Discharge Instructions: Chest Contusion, Elbow Contusion. - Medication Reconciliation, Local Pharmacy Hours form. - Follow up: Dianne Molina; When: 1 - 2 days; Reason: Recheck today's complaints. - Problem is new. - Symptoms are unchanged. - Notes: You were seen in the ED for being struck by a horse with pain in the right chest and elbow. Bloodwork along with EKG of the heart showed no acute findings. Xrays of the right elbow showed no fractures. CT scan of the head, neck, chest, abdomen and pelvis showed no internal injuries. As you are feeling better you may return home. Call your primary doctor to discuss the ED visit and arrange to be seen in the office this week for recheck. Return to the ED for any worsening chest pain, trouble breathing, abdominal pain, new pain in the arms or legs, or any other concerns. Historical: - Allergies: OPIOID ANALGESICSexcept dilaudid; PENICILLINS; erythromycin; SULFA (SULFONAMIDES); Compazine; Versed; Codeine Sulfate; CEPHALOSPORINS; - Home Meds: 1. hydromorphone 2 mg Oral tab 1 tab weekly 2. lisinopril 2.5 mg Oral tab 1 tab once daily - PMHx: bone staff infection; - PSHx: Hip Arthroplasty, Left; Hip Arthroplasty, Right; Hysterectomy; Sinus Surgery; Colon Resection; - Social history: Smoking status: Patient states was never smoker of tobacco. No barriers to communication noted, The patient speaks fluent Ivorian. - Family history: Not pertinent. - : The pt / caregiver states he / she is not on anticoagulants. Home medication list is obtained from the patient. - Exposure Risk Screening:: None identified. Vital Signs: 10/27 15:33 BP 198 / 78; Pulse 101; Resp 18; Temp 96.9; Pulse Ox 97% ; Weight 72.57 kg / 159.99 cmb lbs; Height 5 ft. 5 in. (165.10 cm); Pain 7/10; 16:13 BP 169 / 79 (auto/); aa3 16:38 Pulse 84 MON; Pulse Ox 94% ; aa3 16:39 BP 131 / 71 (auto/); aa3 16:41 BP 131 / 71; Pulse 86; Resp 16; Pulse Ox 95% on R/A; Pain 2/10; aa3 16:42 Pulse 80 MON; Pulse Ox 96% ; aa3 16:43 BP 121 / 59 (auto/); aa3 17:12 Pulse 82 MON; Pulse Ox 94% ; aa3 17:13 BP 173 / 79 (auto/); aa3 17:42 Pulse 74 MON; Pulse Ox 96% ; aa3 17:43 BP 159 / 76 (auto/); aa3 17:50 Pulse 74 MON; Pulse Ox 97% ; aa3 17:51 BP 157 / 80 (auto/); Resp 18; Temp 96.8(O); Pulse Ox 97% on R/A; Pain 1/10; aa3 15:33 Body Mass Index 26.63 (72.57 kg, 165.10 cm) cmb MDM: 15:55 Dye Reel Operator/Pulse Ox/q 30 min VS ordered. br1 15:55 IV Saline Lock ordered. br1 15:55 Rhythm Strip to chart ordered. br1 15:55 Undress patient appropriately for examination ordered. br1 15:55 Basic Metabolic Profile Ordered. EDMS 15:55 CBC with Diff Ordered. EDMS 15:55 Cardiac Injury Profile Ordered. EDMS 15:55 Troponin Ordered. EDMS 15:56 ECG WITH READING ER PHYS+CARDIAG ordered. EDMS 16:07 Dilaudid - HYDROmorphone 0.5 mg IVP once ordered. br1 16:08 CT Head Without Contrast Ordered. EDMS 16:08 CT Spine,Cervical W/o Contrast Ordered. EDMS 16:08 CT Chest With Contrast Ordered. EDMS 16:08 CT ABD & PELVIS: IV Contrast Only Ordered. EDMS 16:12 LIPASE Ordered. EDMS 16:12 LIVER PROFILE Ordered. EDMS 16:12 Elbow, Complete Ordered. EDMS 16:16 Financial registration complete. ks16 16:18 [facility] Payment Agreement was scanned into [email or web address] and attached to record. ks16 16:29 CBC with Diff Reviewed. br1 16:50 Basic Metabolic Profile Reviewed. br1 16:50 Cardiac Injury Profile Reviewed. br1 16:50 Troponin Reviewed. br1 16:50 LIPASE Reviewed. br1 16:50 LIVER PROFILE Reviewed. br1 22:43 T-Sheet-- Draft Copy was scanned into [email or web address] and attached to record. klr Administered Medications: 16:25 Drug: Dilaudid - HYDROmorphone 0.5 mg [hydromorphone 1 mg/mL injection syringe (0.5 aa3 mL)] Route: IVP; Site: right antecubital; 16:41 Follow up: BP 131 / 71; Pulse 86 bpm; Resp 16 bpm; Pulse Ox 95% RA; Pain 2/10 Adult aa3 Signatures: Dispatcher [employer] EDMS Meek Floyd MD MD br1 Sasha Davison RN RN aa3 Sally Lewis RN RN ms18 Eliane Trotter, Reg Reg ks16 Catalina Lu klr The chart was reviewed and I authenticate all verbal orders and agree with the evaluation and treatment provided.Corrections: (The following items were deleted from the chart) 16:11 16:06 LIVER PROFILE+LAB ordered. EDMS EDMS 16:11 16:06 LIPASE+LAB ordered. EDMS EDMS Attachments: 16:18 [facility] Payment Agreement ks16 22:43 T-Sheet-- Draft Copy klr Chart Complete MTDD
--- NOTE | 2016-10-29 19:01 | EDDOCDS ---
Physician Documentation [facility] Name: Juana Nelson Age: 66 yrs Sex: Female : 1950 Arrival Date: 10/27/2016 Time: 15:31 Bed 8 Private MD: Dianne Molina Disposition: 10/27/16 17:44 Discharged to Home/Self Care. Impression: Struck by horse, Contusion of thorax, Contusion of right elbow. - Condition is Stable. - Discharge Instructions: Chest Contusion, Elbow Contusion. - Medication Reconciliation, Local Pharmacy Hours form. - Follow up: Dianne Molina; When: 1 - 2 days; Reason: Recheck today's complaints. - Problem is new. - Symptoms are unchanged. - Notes: You were seen in the ED for being struck by a horse with pain in the right chest and elbow. Bloodwork along with EKG of the heart showed no acute findings. Xrays of the right elbow showed no fractures. CT scan of the head, neck, chest, abdomen and pelvis showed no internal injuries. As you are feeling better you may return home. Call your primary doctor to discuss the ED visit and arrange to be seen in the office this week for recheck. Return to the ED for any worsening chest pain, trouble breathing, abdominal pain, new pain in the arms or legs, or any other concerns. Historical: - Allergies: OPIOID ANALGESICSexcept dilaudid; PENICILLINS; erythromycin; SULFA (SULFONAMIDES); Compazine; Versed; Codeine Sulfate; CEPHALOSPORINS; - Home Meds: 1. hydromorphone 2 mg Oral tab 1 tab weekly 2. lisinopril 2.5 mg Oral tab 1 tab once daily - PMHx: bone staff infection; - PSHx: Hip Arthroplasty, Left; Hip Arthroplasty, Right; Hysterectomy; Sinus Surgery; Colon Resection; - Social history: Smoking status: Patient states was never smoker of tobacco. No barriers to communication noted, The patient speaks fluent Spanish. - Family history: Not pertinent. - : The pt / caregiver states he / she is not on anticoagulants. Home medication list is obtained from the patient. - Exposure Risk Screening:: None identified. Vital Signs: 10/27 15:33 BP 198 / 78; Pulse 101; Resp 18; Temp 96.9; Pulse Ox 97% ; Weight 72.57 kg / 159.99 cmb lbs; Height 5 ft. 5 in. (165.10 cm); Pain 7/10; 16:13 BP 169 / 79 (auto/); aa3 16:38 Pulse 84 MON; Pulse Ox 94% ; aa3 16:39 BP 131 / 71 (auto/); aa3 16:41 BP 131 / 71; Pulse 86; Resp 16; Pulse Ox 95% on R/A; Pain 2/10; aa3 16:42 Pulse 80 MON; Pulse Ox 96% ; aa3 16:43 BP 121 / 59 (auto/); aa3 17:12 Pulse 82 MON; Pulse Ox 94% ; aa3 17:13 BP 173 / 79 (auto/); aa3 17:42 Pulse 74 MON; Pulse Ox 96% ; aa3 17:43 BP 159 / 76 (auto/); aa3 17:50 Pulse 74 MON; Pulse Ox 97% ; aa3 17:51 BP 157 / 80 (auto/); Resp 18; Temp 96.8(O); Pulse Ox 97% on R/A; Pain 1/10; aa3 15:33 Body Mass Index 26.63 (72.57 kg, 165.10 cm) cmb MDM: 15:55 Rocket Engine Mechanic/Pulse Ox/q 30 min VS ordered. br1 15:55 IV Saline Lock ordered. br1 15:55 Rhythm Strip to chart ordered. br1 15:55 Undress patient appropriately for examination ordered. br1 15:55 Basic Metabolic Profile Ordered. EDMS 15:55 CBC with Diff Ordered. EDMS 15:55 Cardiac Injury Profile Ordered. EDMS 15:55 Troponin Ordered. EDMS 15:56 ECG WITH READING ER PHYS+CARDIAG ordered. EDMS 16:07 Dilaudid - HYDROmorphone 0.5 mg IVP once ordered. br1 16:08 CT Head Without Contrast Ordered. EDMS 16:08 CT Spine,Cervical W/o Contrast Ordered. EDMS 16:08 CT Chest With Contrast Ordered. EDMS 16:08 CT ABD & PELVIS: IV Contrast Only Ordered. EDMS 16:12 LIPASE Ordered. EDMS 16:12 LIVER PROFILE Ordered. EDMS 16:12 Elbow, Complete Ordered. EDMS 16:16 Financial registration complete. [id number] 16:18 [facility] was scanned into [employer] and attached to record. ks16 16:29 CBC with Diff Reviewed. br1 16:50 Basic Metabolic Profile Reviewed. br1 16:50 Cardiac Injury Profile Reviewed. br1 16:50 Troponin Reviewed. br1 16:50 LIPASE Reviewed. br1 16:50 LIVER PROFILE Reviewed. br1 22:43 T-Sheet-- Draft Copy was scanned into [employer] and attached to record. klr Administered Medications: 16:25 Drug: Dilaudid - HYDROmorphone 0.5 mg [hydromorphone 1 mg/mL injection syringe (0.5 aa3 mL)] Route: IVP; Site: right antecubital; 16:41 Follow up: BP 131 / 71; Pulse 86 bpm; Resp 16 bpm; Pulse Ox 95% RA; Pain 2/10 Adult aa3 Signatures: Dispatcher [employer] EDMS Meek Floyd MD MD br1 Sasha Davison RN RN aa3 Sally Lewis RN RN ms18 Eliane Trotter, Reg Reg ks16 Catalina Lu klr The chart was reviewed and I authenticate all verbal orders and agree with the evaluation and treatment provided.Corrections: (The following items were deleted from the chart) 16:11 16:06 LIVER PROFILE+LAB ordered. EDMS EDMS 16:11 16:06 LIPASE+LAB ordered. EDMS EDMS Attachments: 16:18 [facility] Payment Agreement ks16 22:43 T-Sheet-- Draft Copy klr Chart Complete MTDD
--- NOTE | 2016-10-29 19:01 | EDDOCDS ---
Nurse's Notes [facility] Name: Ricky Goldman Age: 66 yrs Sex: Female : 1950 Arrival Date: 10/27/2016 Time: 15:31 Bed 8 Private MD: Dianne Molina Diagnosis: Struck by horse;Contusion of thorax;Contusion of right elbow Presentation: 10/27 15:41 Presenting complaint: Patient states: that she was crushed inbetween a wall and a ms18 2000lb horse. Pt states that she is having pain in her chest area at this time. Pt was also knocked down by the horse onto a concrete floor, pt states that she took the fall on her R elbow and R hip. Adult Sepsis Screening: The patient does not have new or worsening altered mentation. Patient's respiratory rate is less than 22. Systolic blood pressure is greater than 100. Patient has a qSOFA score of 0- Negative Sepsis Screen. Suicide/Homicide risk assessment- the patient denies having any suicidal and/or homicidal ideations and does not present with any other emotional, behavioral or mental health complaints. Status: Patient is not a airfield services officer or dependent. Transition of care: patient was not received from another setting of care. 15:41 Acuity: REED Level 2 ms18 15:41 Method Of Arrival: Walkin/Carried/Asstd ms18 15:48 Red Flag criteria, patient assessed and taken directly to a bed. ms18 Triage Assessment: 15:53 General: Appears in no apparent distress, uncomfortable, Behavior is agitated. Pain: ms18 Location: chest Pain currently is 4 out of 10 on a pain scale. At worst was 7 out of 10 on a pain scale. Neurological: Level of Consciousness is awake, alert, obeys commands, Oriented to person, place, time. Respiratory: Airway is patent Respiratory effort is even, unlabored, Reports shortness of breath. Derm: Skin is pink, warm & dry. Historical: - Allergies: OPIOID ANALGESICSexcept dilaudid; PENICILLINS; erythromycin; SULFA (SULFONAMIDES); Compazine; Versed; Codeine Sulfate; CEPHALOSPORINS; - Home Meds: 1. hydromorphone 2 mg Oral tab 1 tab weekly 2. lisinopril 2.5 mg Oral tab 1 tab once daily - PMHx: bone staff infection; - PSHx: Hip Arthroplasty, Left; Hip Arthroplasty, Right; Hysterectomy; Sinus Surgery; Colon Resection; - Social history: Smoking status: Patient states was never smoker of tobacco. No barriers to communication noted, The patient speaks fluent Upper Sorbian. - Family history: Not pertinent. - : The pt / caregiver states he / she is not on anticoagulants. Home medication list is obtained from the patient. - Exposure Risk Screening:: None identified. Screenin:13 Screening information is obtained from the patient. Fall risk: No risks identified. aa3 Assistance ADL's: requires no assistance with activities of daily living. Abuse/DV Screen: The patient / caregiver reports he/she is: not in a situation that causes fear, pain or injury. Nutritional screening: No deficits noted. Advance Directives: Currently, there is no health care proxy. There is no active DNR order. There is no living will. home support is adequate. Assessment: 16:14 General: Appears in no apparent distress, Behavior is appropriate for age, cooperative. aa3 Pain: Location: anterior aspect of right upper chest Pain currently is 4 out of 10 on a pain scale. Neurological: Level of Consciousness is awake, alert, Oriented to person, place, time. Cardiovascular: Capillary refill < 3 seconds. Respiratory: Airway is patent Respiratory effort is even, unlabored, Respiratory pattern is regular, symmetrical, Breath sounds are clear bilaterally. GI: Abdomen is non- distended. Derm: Skin is intact, is healthy with good turgor, Skin is pink, warm & dry. Musculoskeletal: No deficits noted. 17:12 General: Patient currently in CT. Patient states pain is decreased to 3/10, and it is aa3 difficult to tell acute from her chronic pain. Patient is alert and oriented, no distress noted, no apparent change in condition. Safety precautions in place, respirations are even and unlabored, will continue to monitor.. 17:58 General: Appears in no apparent distress, comfortable, Behavior is appropriate for age, aa3 cooperative. Pain: Location: right elbow Pain currently is 1 out of 10 on a pain scale. Neurological: Level of Consciousness is awake, alert, Oriented to person, place, time. Cardiovascular: Capillary refill < 3 seconds. Respiratory: Airway is patent Respiratory effort is even, unlabored, Respiratory pattern is regular, symmetrical. GI:. Derm: Skin is intact, is healthy with good turgor, Skin is pink, warm & dry. Musculoskeletal: No deficits noted. Vital Signs: 15:33 BP 198 / 78; Pulse 101; Resp 18; Temp 96.9; Pulse Ox 97% ; Weight 72.57 kg; Height 5 cmb ft. 5 in. (165.10 cm); Pain 7/10; 16:13 BP 169 / 79 (auto/); aa3 16:38 Pulse 84 MON; Pulse Ox 94% ; aa3 16:39 BP 131 / 71 (auto/); aa3 16:41 BP 131 / 71; Pulse 86; Resp 16; Pulse Ox 95% on R/A; Pain 2/10; aa3 16:42 Pulse 80 MON; Pulse Ox 96% ; aa3 16:43 BP 121 / 59 (auto/); aa3 17:12 Pulse 82 MON; Pulse Ox 94% ; aa3 17:13 BP 173 / 79 (auto/); aa3 17:42 Pulse 74 MON; Pulse Ox 96% ; aa3 17:43 BP 159 / 76 (auto/); aa3 17:50 Pulse 74 MON; Pulse Ox 97% ; aa3 17:51 BP 157 / 80 (auto/); Resp 18; Temp 96.8(O); Pulse Ox 97% on R/A; Pain 1/10; aa3 15:33 Body Mass Index 26.63 (72.57 kg, 165.10 cm) cmb Vitals: 15:33 Log In Time: October 27, 2016 at 15:31. cmb ED Course: 15:32 Patient visited by Shivani Brand. cmb 15:32 Patient moved to Waiting cmb 15:33 Dianne Molina is Private Physician. cmb 15:35 Patient moved to Pre RCE cmb 15:41 Patient visited by Sally Lewis RN. ms18 15:41 [facility] dk1 15:41 Nakul Floyd MD is Attending Physician. dk1 15:41 Patient moved to Triage 2 sew 15:46 Triage Initiated ms18 15:54 Marisela Marinelli,RN is Primary Nurse. ms18 15:54 Nakul Floyd MD is Attending Physician. br1 15:54 Patient moved to 8 ms18 16:05 Patient visited by Nakul Floyd MD. br1 16:13 The patient / caregiver is instructed regarding the plan of care and ED course. Cardiac aa3 monitor on. Pulse ox on. NIBP on. 16:13 Inserted peripheral IV: 20gauge IV in right antecubital area Patient tolerated the aa3 procedure well. Labs drawn. (by ED staff). Sent per order to lab. 16:14 LIVER PROFILE Sent. aa3 16:14 LIPASE Sent. aa3 16:14 Basic Metabolic Profile Sent. aa3 16:14 CBC with Diff Sent. aa3 16:14 Cardiac Injury Profile Sent. aa3 16:14 Troponin Sent. aa3 16:16 Patient visited by Stevo Zapata PCA. jrd 16:16 EKG done. (by ED staff). Reviewed by Nakul Floyd MD. jrd 16:17 Patient visited by Sasha Davison,PEDRO. aa3 16:18 [facility] Payment Agreement was scanned into [employer] and attached to record. ks16 16:22 Patient name changed from Ricky\S\\S\Bitter\S\ to Ricky\S\ \S\Bitter. EDMS 16:42 Patient visited by Sasha Davison,PEDRO. aa3 17:14 Patient visited by Sasha Davison,PEDRO. aa3 17:14 CT Head Without Contrast Returned. EDMS 17:41 Patient visited by Nakul Floyd MD. br1 17:43 Dianne Molina is Referral Physician. br1 17:51 Discontinued IV intact, bleeding controlled, No redness/swelling at site. No procedures aa3 done that require assistance. 17:57 CT Spine,Cervical W/o Contrast Returned. EDMS 17:57 CT ABD & PELVIS: IV Contrast Only Returned. EDMS 17:57 CT Chest With Contrast Returned. EDMS 17:57 Elbow, Complete Returned. EDMS 18:38 EKG-ADULT Returned. EDMS 22:43 T-Sheet-- Draft Copy was scanned into [employer] and attached to record. klr Administered Medications: 16:25 Drug: Dilaudid - HYDROmorphone 0.5 mg [hydromorphone 1 mg/mL injection syringe (0.5 aa3 mL)] Route: IVP; Site: right antecubital; 16:41 Follow up: BP 131 / 71; Pulse 86 bpm; Resp 16 bpm; Pulse Ox 95% RA; Pain 10/12 Adult aa3 Order Results: Lab Order: Basic Metabolic Profile; SPEC'M 10/27/16 16:11 Test: GLUCOSE, FASTING; Value: 119; Range: 80-110; Abnormal: Above high normal; Units: MG/DL; Status: F Test: BLOOD UREA NITROGEN; Value: 22; Range: 7-18; Abnormal: Above high normal; Units: MG/DL; Status: F Test: CREATININE FOR GFR; Value: 1.02; Range: 0.55-1.02; Units: MG/DL; Status: F Test: GLOMERULAR FILTRATION RATE; Value: 57.7; Range: >45; Status: F Test: SODIUM LEVEL; Value: 141; Range: 136-145; Units: MEQ/L; Status: F Test: POTASSIUM SERUM; Value: 4.1; Range: 3.5-5.1; Units: MEQ/L; Status: F Test: CHLORIDE LEVEL; Value: 106; Range: 98-107; Units: MEQ/L; Status: F Test: CARBON DIOXIDE LEVEL; Value: 26; Range: 21-32; Units: MEQ/L; Status: F Test: ANION GAP; Value: 9; Range: 8-16; Units: MEQ/L; Status: F Test: CALCIUM LEVEL; Value: 8.6; Range: 8.8-10.2; Abnormal: Below low normal; Units: MG/DL; Status: F Test Note: ; Units are mL/min/1.73 m2 Chronic Kidney Disease Staging per NKF: Stage I & II GFR >=60 Normal to Mildly Decreased Stage III GFR 30-59 Moderately Decreased Stage IV GFR 15-29 Severely Decreased Stage V GFR <15 Very Little GFR Left ESRD GFR <[address] [employer] Lab Order: CBC with Diff; SPEC'M 10/27/16 16:11 Test: WHITE BLOOD COUNT; Value: 7.4; Range: 4.0-10.0; Units: K/mm3; Status: F Test: RED BLOOD COUNT; Value: 4.42; Range: 4.00-5.40; Units: M/mm3; Status: F Test: HEMOGLOBIN; Value: 13.5; Range: 12.0-16.0; Units: g/dl; Status: F Test: HEMATOCRIT; Value: 40.8; Range: 36.0-47.0; Units: %; Status: F Test: MEAN CORPUSCULAR VOLUME; Value: 92.4; Range: 80.0-96.0; Units: fl; Status: F Test: MEAN CORPUSCULAR HEMOGLOBIN; Value: 30.5; Range: 27.0-33.0; Units: pg; Status: F Test: MEAN CORPUSCULAR HGB CONC; Value: 33.0; Range: 32.0-36.5; Units: g/dl; Status: F Test: RED CELL DISTRIBUTION WIDTH; Value: 13.5; Range: 11.5-14.5; Units: %; Status: F Test: PLATELET COUNT, AUTOMATED; Value: 324; Range: 150-450; Units: k/mm3; Status: F Test: NEUTROPHILS %; Value: 63.5; Range: 36.0-66.0; Units: %; Status: F Test: LYMPH %; Value: 25.5; Range: 24.0-44.0; Units: %; Status: F Test: MONO %; Value: 6.8; Range: 0.0-5.0; Abnormal: Above high normal; Units: %; Status: F Test: EOS %; Value: 2.1; Range: 0.0-3.0; Units: %; Status: F Test: BASO %; Value: 0.9; Range: 0.0-1.0; Units: %; Status: F Test: LARGE UNSTAINED CELL %; Value: 1.2; Range: 0.0-4.0; Units: %; Status: F Test: NEUTROPHILS #; Value: 4.7; Range: 1.8-7.7; Units: K/mm3; Status: F Test: LYMPH #; Value: 2.0; Range: 1.5-4.5; Units: K/mm3; Status: F Test: MONO #; Value: 0.5; Range: 0.0-0.8; Units: K/mm3; Status: F Test: EOS #; Value: 0.2; Range: 0.0-0.50; Units: K/mm3; Status: F Test: BASO #; Value: 0.1; Range: 0.0-0.2; Units: K/mm3; Status: F Test: LARGE UNSTAINED CELL #; Value: 0.1; Range: 0.0-0.4; Units: K/mm3; Status: F Lab Order: Cardiac Injury Profile; [facility] 10/27/16 16:11 Test: CPK CREATINE PHOSPHOKINASE; Value: 180; Range: 26-192; Units: U/L; Status: F Test: CK-MB VALUE MASS; Value: 5.8; Range: 0.0-3.6; Abnormal: Above high normal; Units: NG/ML; Status: F Test: MB/CK RELATIVE INDEX; Value: 3.22; Range: < OR =4; Status: F Test Note: ; DIAGNOSIS CRITERIA MMB ng/ml Relative Index (RI) NON-AMI < or = 5 N/A VERA ZONE > 5 < or = 4 AMI > 5 > 4 Lab Order: Troponin; [facility] 10/27/16 16:11 Test: TROPONIN I; Value: < 0.02; Range: < 0.10; Units: NG/ML; Status: F Test Note: ; Troponin I Reference Interval for [employer] LOCI: 99th Percentile= 0.00-0.045 ng/ml Risk Stratification: <= 0.10 ng/ml Decreased Risk for Adverse Clinical Events. 0.10-1.50 ng/ml Increased Risk for Adverse Clinical Events. Evaluation of additional criterion and/or repeat testing in 2-6 hours is suggested to rule out myocardial damage. >= 1.50 ng/ml Indicative of Myocardial Injury. Lab Order: LIPASE; [facility] 10/27/16 16:11 Test: LIPASE; Value: 256; Range: 73-393; Units: U/L; Status: F Lab Order: LIVER PROFILE; [facility] 10/27/16 16:11 Test: AST/SGOT; Value: 22; Range: 15-37; Units: U/L; Status: F Test: ALT/SGPT; Value: 22; Range: 12-78; Units: U/L; Status: F Test: ALKALINE PHOSPHATASE; Value: 105; Range: 45-117; Units: U/L; Status: F Test: BILIRUBIN,TOTAL; Value: 0.3; Range: 0.2-1.0; Units: MG/DL; Status: F Test: BILIRUBIN,DIRECT; Value: < 0.1; Range: 0.0-0.2; Units: MG/DL; Status: F Test: TOTAL PROTEIN; Value: 7.0; Range: 6.4-8.2; Units: GM/DL; Status: F Test: ALBUMIN; Value: 3.9; Range: 3.2-5.2; Units: GM/DL; Status: F Test: ALBUMIN/GLOBULIN RATIO; Value: 1.26; Range: 1.00-1.93; Status: F Radiology Order: EKG-ADULT Test: EKG-ADULT REASON FOR EXAMINATION: Chest Pain; Stationary ECG Study; [facility] - ED; ; Test Date: 2016-10-27; Pat Name: RICKY GOLDMAN Department:; Room: -; Gender: F 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; : 1950 Requested By: NAKUL Castaneda; Order Number: [id number] Reading MD: Abhishek Pfeiffer; Measurements; Intervals [place]; Rate: 89 P: 56; IL: 169 QRS: -12; QRSD: 82 T: 9; QT: 345; QTc: 422; Interpretive Statements; SINUS RHYTHM WITH OCCASIONAL SUPRAVENTRICULAR PREMATURE COMPLEXES; MINIMAL VOLTAGE CRITERIA FOR LVH, CONSIDER NORMAL VARIANT; ; Electronically Signed On 10-27-2016 18:11:58 EST by Abhishek Pfeiffer; Radiology Order: CT Head Without Contrast Test: CT Head Without Contrast REASON FOR EXAMINATION: Trauma; Clinical: Trauma .; ; Comparison: 09/24/2013 .; ; Findings:; The ventricles, sulci, and cisterns are normal in position and appearance.; Vera-white differentiation is maintained. No acute intracranial hemorrhage,; mass/mass effect, pathology or trauma/injury. No evidence for acute infarction.; No extra-axial fluid collection. Calvarium is intact. Paranasal sinuses and; mastoid air cells are clear.; ; Impression:; Normal noncontrast head CT.; No evidence for acute intracranial pathology or trauma/injury.; ; ; Signed by; Anatoliy Whaley MD 10/27/2016 05:03 P; Radiology Order: CT Spine,Cervical W/o Contrast Test: CT Spine,Cervical W/o Contrast REASON FOR EXAMINATION: Trauma; Clinical: Trauma.; ; Technique: Axial images from the skull base to the thoracic inlet with coronal; and sagittal re-formations.; ; Findings:; Alignment is maintained and there is no evidence for acute fracture / compression; injury or subluxation. Moderate to advanced multilevel degenerative disc; osteophyte complexes include osteophytosis, endplate sclerosis/irregularity and; disc space narrowing as well as posterior osteophytes and hypertrophic facet; changes. Findings are most pronounced at the C5-6, C6-7 and C4-5 levels. Spinal; canal is patent posterior elements are intact paravertebral soft tissues are; normal; ; Impression:; Moderate to advanced multilevel degenerative disc osteophyte complexes. No; evidence for acute fracture / compression injury or subluxation.; ; ; Signed by; Anatoliy Whaley MD 10/27/2016 05:05 P; Radiology Order: CT Chest With Contrast Test: CT Chest With Contrast REASON FOR EXAMINATION: Trauma; Clinical: Trauma.; ; Technique: Axial contrast enhanced images from the thoracic inlet to the upper; abdomen using 100 ml Isovue 370 intravenous contrast material with multiplanar; re-formations.; ; Findings:; The bilateral lung yoon demonstrate mild chronic posterior basilar interstitial; changes and minimal perihilar bronchiectasis. There is no; consolidation/contusion, pleural effusion or pneumothorax. No significant nodule; or mass lesion appreciated. The mediastinum demonstrates normal thoracic aorta; and heart/pericardium. No mediastinal injury is identified. No axillary, hilar,; or mediastinal adenopathy noted. Incidental note is made of a moderate hiatal; hernia. Skeletal structures demonstrate degenerative changes without focal; osseous abnormality or evidence for trauma/injury; ; Impression:; Minimal chronic interstitial changes.; Hiatal hernia.; No acute mediastinal or pleuroparenchymal process or trauma/injury appreciated.; ; ; Signed by; Anatoliy Whaley MD 10/27/2016 05:19 P; Radiology Order: CT ABD & PELVIS: IV Contrast Only Test: CT ABD & PELVIS: IV Contrast Only REASON FOR EXAMINATION: Trauma; Clinical: Trauma.; ; Technique: Axial contrast enhanced images from the lung bases to the pubic; symphysis using 100 ml Isovue 370 intravenous contrast material with coronal and; sagittal re-formations.; ; Findings:; Lung bases demonstrate chronic changes. Visualized heart and pericardium grossly; normal. Small hiatal hernia noted.; ; There is no evidence for solid organ injury. Liver, spleen, pancreas,; gallbladder, bilateral adrenal glands and kidneys are normal. Incidental note is; made of a subcentimeter hepatic cyst in the medial left lobe (image 18). The; visualized enteric system is without obstruction or acute inflammatory process.; Normal terminal ileum and appendix identified in the right lower quadrant.; Diffuse diverticulosis noted without obvious acute diverticulitis. Fat; containing supraumbilical ventral hernia. Evaluation of the pelvic structures is; significantly limited due to metallic streak artifact from bilateral hip; prosthesis. There is no obvious ascites, free air or adenopathy.; Atherosclerotic changes of the aorta and vasculature noted without aneurysm.; Musculoskeletal structures appear intact without evidence for acute fracture.; ; Impression:; No evidence for solid organ injury.; No evidence for musculoskeletal injury.; Hiatal hernia.; Fat containing supraumbilical ventral hernia.; Diffuse colonic diverticulosis without acute diverticulitis.; ; ; Signed by; Anatoliy Whaley MD 10/27/2016 05:16 P; Radiology Order: Elbow, Complete Test: Elbow, Complete REASON FOR EXAMINATION: Trauma; Clinical: Trauma .; ; Technique: AP, lateral, bilateral oblique views of the right elbow.; ; Findings:; No acute fracture or dislocation is appreciated. Joint spaces and surrounding; soft tissues appear normal. Lateral view demonstrates normal positioning to the; anterior and posterior fat pads without evidence for effusion/hemarthrosis. No; subcutaneous emphysema or foreign body identified. Venous catheter in the; antecubital fossa appears cannot and should be evaluated.; ; Impression:; No acute fracture or dislocation.; Venous catheter in the antecubital fossa appears kinked and should be evaluated.; ; ; Signed by; Anatoliy Whaley MD 10/27/2016 05:32 P; Outcome: 17:44 Discharge ordered by Provider. br1 17:51 Discharge Assessment: Patient awake and alert. Oriented to person, place and time. aa3 Patient verbalized understanding of disposition instructions. Patient has no functional deficits. patient administered narcotics - yes. Pt provided with safe discharge. The following High Risk Discharge criteria are identified: None. Discharged to home ambulatory, with family. Condition: good. Discharge instructions given to patient, Instructed on discharge instructions, follow up and referral plans. Demonstrated understanding of instructions, Pt was receptive of discharge instructions/ teaching. CT Study completed. Property :Personal belongings accompany Pt. 18:01 Patient left the ED. aa3 Signatures: Dispatcher [employer] EDMS Rickey Rosenthal, AZEEM GANN dk1 Nakul Floyd MD MD br1 Shivani Brand Sarah sew Asselin, AbbyRN RN aa3 Sally Lewis RN RN ms18 Jodi, Stevo, ELECTRICAL MAINTENANCE SUPERVISOR ELECTRICAL MAINTENANCE SUPERVISOR jrd Eliane Trotter, Reg Reg ks16 Catalina Lu Chart Complete MTDD
== END 2016-10-27 18:01 | disposition home or self-care (01) ==
LOC: M ED 15:31
DX: S20.20XA Contusion of thorax, unspecified, initial encounter (principal); S50.11XA Contusion of right forearm, initial encounter; W55.19XA Other contact with horse, initial encounter; Y92.019 Unspecified place in single-family (private) house as the place of occurrence of the external cause; Y93.9 Activity, unspecified; Y99.9 Unspecified external cause status; Z96.641 Presence of right artificial hip joint; Z96.642 Presence of left artificial hip joint; Z90.49 Acquired absence of other specified parts of digestive tract; Z79.899 Other long term (current) drug therapy; Z88.5 Allergy status to narcotic agent; Z88.0 Allergy status to penicillin; Z88.2 Allergy status to sulfonamides; Z88.8 Allergy status to other drugs, medicaments and biological substances
CPT/HCPCS: 36415; 70450; 71260; 72125; 73080; 74177; 80048; 80076; 82550; 82553; 83690; 84484; 85025; 93005; 93041; 96374; 99285; J1170; Q9967

== ENCOUNTER → 2016-10-30 | Outpatient (CLI) | payer OTHER ==
--- NOTE | 2016-11-03 23:35 | ECWPNPC ---
PATIENT NAME: RICKY GOLDMAN : 1950 GENDER: FEMALE VISIT DATE: 10/30/2016 DISCHARGE DATE: 10/30/16 1045 VISIT LOCKED DATE TIME: PHYSICIAN: ROSA M MCCORMACK RESOURCE: ROSA M MCCORMACK REASON FOR APPOINTMENT 1. BACK HISTORY OF PRESENT ILLNESS HISTORY OF PRESENT ILLNESS: PAIN THE PATIENT DESCRIBES THE PAIN... 66 YEAR OLD FEMALE PATIENT WITH HISTORY OF CHRONIC BACK PAIN. PATIENT DESCRIBES THE PAIN IT COMES AND GOES WITH A PAIN SCORE OF 5/10 ON TODAY'S VISIT. PATIENT STATES THAT LAST SATURDAY AFTERNOON, SHE WAS IN A HORSE STALL WHEN THE HORSE PUSHED HER AGAINST THE SIDE OF THE STALL AND SHE FELL ONTO THE CONCRETE FLOOR, AND SHE REPORTS THAT SHE WENT TO THE ER THAT DAY. PATIENT STATES THAT SHE IS STILL SORE OVER HER CHEST AREA. PATIENT STATES THAT SHE CAN NOT TAKE PERCOCET. PATIENT REPORTS THAT SHE IS CURRENTLY RECEIVING CHIROPRACTIC SERVICES FOR HER PELVIC AREA. PATIENT DENIES UNEXPLAINABLE WEIGHT LOSS, FEVER, CHILLS, NEW CHANGES ON HER URINARY OR BOWEL CONTROL. FALL RISK SCREENING: SCREENING :NO FALLS IN THE PAST YEAR CURRENT MEDICATIONS TAKING DILAUDID 2 MG TABLET 1 TABLET NEEDED ORALLY CODE D FOR CHRONIC PAIN DAY PRN FOR PAIN MDD1 TAKING GABAPENTIN 300 MG CAPSULE 1 CAPSULE ORALLY FOUR TIMES DAILY FOR PAIN MDD4 TAKING TRAZODONE 50 50MG TABLET 2 TABLETS ORAL BEFORE BEDTIME TAKING LISINOPRIL 2.5 2.5 MG TABLET ORAL DAILY TAKING BUPROPION HCL (XL) 300 MG TABLET EXTENDED RELEASE 24 HOUR 1 TABLET IN THE MORNING ORALLY ONCE A DAY TAKING OMEPRAZOLE 20MG 20MG TABLET ORAL BID TAKING ONDANSETRON 8 MG TABLET DISPERSIBLE ORALLY PRN TAKING SENNA 8.6 MG CAPSULE 1-2 CAPSULES AT BEDTIME NEEDED ORALLY ONCE A DAY TAKING DIPHENHYDRAMINE HCL 25 MG CAPSULE 1-2 CAPSULE NEEDED ORALLY EVERY 6 HRS PRN TAKING RESTASIS 0.05 % EMULSION 1 NULL INTO AFFECTED EYE OPHTHALMIC TWICE A DAY TAKING MAGNESIUM SULFATE 1 TAB 400MGS ORAL DAILY NOT-TAKING LEVSIN 0.125 MG TABLET 1 TABLET BEFORE MEALS NEEDED ORALLY EVERY 4 HRS NOT-TAKING PAZEO 0.7 % SOLUTION 1 DROP INTO AFFECTED EYE OPHTHALMIC ONCE A DAY MEDICATION LIST REVIEWED AND RECONCILED WITH THE PATIENT PAST MEDICAL HISTORY HTN DEPRESSION HIATLE HERNIA GERD PANCREATITUS HEARING LOSS IBS LUPUS RIGHT WRIST FX BILATERAL ANLKE FX OSTEOARTHRITIS ASTHMA MRSA RIGHT HIP ALLERGIES PENICILLIN (FOR ALLERGIES USE ONLY): ANAPHYLAXIS VANCOMYCIN HCL: ANAPHYLAXIS SULFA (FOR ALLERGY USE ONLY): ANAPHYLAXIS LACTOSE INTOLERANTE: GI DISTRESS REGLAN: HYPERTENSION CLINDAMYCIN HCL COMPAZINE CODEINE SULFATE: RESPIRATORY DISTRESS/CONFUSION VERSED: RESPIRATORY DISTRESS/CONFUSION CEPHALOSPORINS: RASH HIVES ERTHROMYCOIN: RASH HIVES KEFLEX: RASH HIVES NSAIDS: GI DISTRESS ASPIRIN: GI DISTRESS MORPHINE: AGGRESSION, CONFUSION AND AGGITATION: SIDE EFFECTS SURGICAL HISTORY COLON RESCECTION SP SPONTAEOUS RUPTURE 1975 HYSTERECTOMY 1988 TOTAL LT HIP 1991 TOTAL RT HIP 1989 OVARIAN CYSTECTOMY 1987 FAMILY HISTORY NO FAMILY HISTORY DOCUMENTED. SOCIAL HISTORY GENERAL: TOBACCO USE ARE YOU A:NONSMOKER LEARNING BARRIERS / SPECIAL NEEDS ORIENTED TO PLAN OF CARE: PATIENT, PAIN MANAGEMENT PATIENT, ORIENTED TO PLAN OF CARE: PATIENT, PAIN MANAGEMENT PATIENT. NEW PATIENT PAIN DIARY TODAY'S VISITNOTES FROM 0-10, WHAT LEVEL IS YOUR PAIN TODAY?0 PAIN CLINIC PFS, CLERGY, PUBLIC HEALTH REFERRALS PFS REFERRAL NEEDED?NO CLERGY REFERRAL NEEDED?NO PUBLIC HEALTH REFERRAL NEEDED?NO WAS THE PROVIDER NOTIFIED OF ANY PERTINENT INFO?NO PFS REFERRAL NEEDED?NO CLERGY REFERRAL NEEDED?NO PUBLIC HEALTH REFERRAL NEEDED?NO WAS THE PROVIDER NOTIFIED OF ANY PERTINENT INFO?NO HOSPITALIZATION/MAJOR DIAGNOSTIC PROCEDURE MRSA TO RIGHT HIP 2009 REVIEW OF SYSTEMS CONSTITUTIONAL: ANY CHANGE IN YOUR MEDICAL CONDITION? NO . CHILLS NO . FEVER NO . INFECTION: DO YOU HAVE NEW INFECTIONS? NO . DO YOU HAVE HISTORY OF MRSA? NO . MUSCULOSKELETAL: ANY NEW PATTERNS OF PAIN OR NUMBNESS? YES PT REPORTS SHE WAS CRUSHED BETWEEN A HORSE AND A WALL ON 10/26/16. SEEN IN ED, NO BROKEN BONES, NO INTERNAL BLEEDING PER ED. PT REPORTS PAIN IN RIGHT CHEST, RIGHT ARM AND ELBOW FROM INJURY. . GASTROENTEROLOGY: ANY NEW CHANGE IN BOWEL CONTROL? NO . GENITOURINARY: ANY NEW CHANGE IN BLADDER CONTROL? NO . IS THERE A CHANCE YOU COULD BE ? NO . HEMATOLOGY/LYMPH: DO YOU TAKE ANY BLOOD THINNERS? (FOR EXAMPLE- COUMADIN, PLAVIX, AGGRENOX, PLATEL, PRADAXA, OR XARELTO) NO . WHEN WAS YOUR LAST DOSE? DATE: TIME: . NEUROLOGY: HAVE YOU FALLEN IN THE PAST 6 MONTHS? YES PT REPORTS A FALL DURING HORSE CRUSH ACCIDENT 10/26 . ANY NEW EXTREMITY NUMBNESS OR WEAKNESS? NO . CARDIOLOGY: DO YOU HAVE A PACEMAKER OR DEFIBRILLATOR? NO . RESPIRATORY: HAVE YOU BEEN SICK IN THE PAST WEEK? NO . FEVER NO . FLU LIKE SYMPTOMS? NO . COUGH NO . INTEGUMENTARY: DO YOU HAVE ANY RASHES OR OPEN SORES? NO . ALLERGIC/IMMUNO: ARE YOU ALLERGIC TO SHELLFISH OR IV DYE? YES, PT REPORTS SHE IS ALLERGIC TO SHELLFISH, BUT HAD CT DYE 10/26/16 WITH NO PROBLEM, &QUOT;NEW IONIZED TYPE OF DYE&QUOT; PER PT. . ANY NEW ALLERGIES? NO . PSYCHIATRIC: DO YOU HAVE THOUGHTS OF HURTING YOURSELF OR SOMEONE ELSE? NO . ARE YOU ABUSED, NEGLECTED, OR IN AN UNSAFE ENVIRONMENT? NO . ENDOCRINOLOGY: ARE YOU DIABETIC? NO . OTHER: DO YOU NEED ANY PRESCRIPTIONS? YES . IF YES, PLEASE LIST: ____HYDROMORPHONE . ANY NEW PROBLEMS WITH YOUR MEDICATIONS? NO . WHEN DID YOU LAST EAT? ____ . WHEN DID YOU LAST DRINK? ____ . WHAT DID YOU LAST DRINK? ____ . NAME OF PERSON DRIVING YOU HOME? ____ . DO YOU HAVE ANY OTHER QUESTIONS OR CONCERNS YES PT STATES SHE IS CONCERNED THAT ALL SHE HAS FOR BREAK-THROUGH PAIN IS HYDROMORPHONE ONCE DAILY, WITH ONLY 8 DOSES PRESCRIBED. . REVIEWED BY: PROVIDER: ROSA M MCCORMACK MD . VITAL SIGNS WT 164 LBS, HT 64 IN, BMI 28.15 INDEX, BP 178/83 MM HG, HR 88 /MIN, RR 16 /MIN, TEMP 96.4 F, OXYGEN SAT % 96, NA INITIALS TL 0921, REVIEWED BY: LASELEVATED BP 178/83, PT IN A LOT OF PAIN SINCE SATURDAY-TL. EXAMINATION : PATIENT IS ALERT O X 3 AND COOPERATIVE. THERE IS TENDERNESS IN THE LEFT AND RIGHT SACRO ILIAC AREA AND LUMBAR PARASPINAL MUSCLE GROUP WITH PAIN. 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 ASSESSMENTS SPONDYLOSIS WITHOUT MYELOPATHY OR RADICULOPATHY, LUMBAR REGION - M47.816 (PRIMARY) SPONDYLOSIS WITHOUT MYELOPATHY OR RADICULOPATHY, LUMBOSACRAL REGION - M47.817 SACROILIITIS, NOT ELSEWHERE CLASSIFIED - M46.1 TREATMENT SPONDYLOSIS WITHOUT MYELOPATHY OR RADICULOPATHY, LUMBAR REGION NOTES: WE DISCUSSED SEVERAL ISSUES WITH MS. GOLDMAN'S PAIN MANAGEMENT CASE. PATIENT WILL RECEIVE A REFILL OF HER DILAUDID AND GABAPENTIN TODAY. PATIENT BROUGHT IN HER MEDICATION BOTTLES ON TODAY'S VISIT. I DISCUSSED WITH THE PATIENT THAT SHE IS A GOOD CANDIDATE FOR A BILATERAL SIJ AND A BILATERAL L4-S1 LFBT. WE DISCUSSED THE RISK BENEFITS AND ALTERNATIVES AND THE PATIENT WOULD LIKE TO PROCEED. PATIENT TO FOLLOW UP WITH ME IN TWO MONTHS. , INSTRUCTIONS WERE GIVEN, QUESTIONS WERE ANSWERED, PATIENT REPORTS UNDERSTANDING AND AGREES WITH THE PLAN. I, INDIGO MEJIA, DOCUMENTED THE ABOVE INFORMATION ACTING A SCRIBE FOR DR. MCCORMACK. I HAVE REVIEWED THE ABOVE DOCUMENT, WRITTEN BY INDIGO MEJIA SCRIBE AND I VERIFY THAT IT IS ACCURATE. OTHERS REFILL DILAUDID TABLET, 2 MG, 1 TABLET NEEDED, ORALLY CODE D FOR CHRONIC PAIN, DAY PRN FOR PAIN MDD1, 60 DAYS, 20, REFILLS 0 PROCEDURE CODES FA211 ESTABILISHED PATIENT [facility] FACILITY CHARGE G8730 PAIN ASSESS POS TOOL F/U PLAN DOC G8427 DOC MEDS VERIFIED W/PT OR RE DISPOSITION & COMMUNICATION FOLLOW UP 2 MONTHS ELECTRONICALLY SIGNED BY ROSA M MCCORMACK MD ON 11/03/2016 AT 04:02 PM EST DISCLAIMER : THIS IS A VISIT SUMMARY EXTRACTED FROM THE [employer] CHART. IT IS NOT A COPY OF THE [employer] PROGRESS NOTE. MTDD
== END ==
LOC: M PAIN 09:20
PROVIDERS: ATTEND Anesthesiology
DX: Z09 Encounter for follow-up examination after completed treatment for conditions other than malignant neoplasm (principal); G89.29 Other chronic pain; M47.816 Spondylosis without myelopathy or radiculopathy, lumbar region; M47.817 Spondylosis without myelopathy or radiculopathy, lumbosacral region; M46.1 Sacroiliitis, not elsewhere classified; M19.90 Unspecified osteoarthritis, unspecified site; I10 Essential (primary) hypertension; J45.909 Unspecified asthma, uncomplicated; M32.9 Systemic lupus erythematosus, unspecified; K21.9 Gastro-esophageal reflux disease without esophagitis; K44.9 Diaphragmatic hernia without obstruction or gangrene; K58.9 Irritable bowel syndrome, unspecified; F32.9 Major depressive disorder, single episode, unspecified; Z91.013 Allergy to seafood; Z88.0 Allergy status to penicillin; Z88.1 Allergy status to other antibiotic agents; Z88.2 Allergy status to sulfonamides; Z88.5 Allergy status to narcotic agent; Z88.6 Allergy status to analgesic agent; Z88.8 Allergy status to other drugs, medicaments and biological substances; E73.9 Lactose intolerance, unspecified; Z79.891 Long term (current) use of opiate analgesic; Z79.899 Other long term (current) drug therapy; Z86.14 Personal history of Methicillin resistant Staphylococcus aureus infection

== ENCOUNTER → 2016-12-25 | Outpatient (CLI) | payer OTHER ==
--- NOTE | 2016-12-31 00:57 | ECWPNPC ---
PATIENT NAME: RICKY GOLDMAN : 1950 GENDER: FEMALE VISIT DATE: 12/25/2016 DISCHARGE DATE: 12/25/16 1431 VISIT LOCKED DATE TIME: PHYSICIAN: ROSA M MCCORMACK RESOURCE: ROSA M MCCORMACK REASON FOR APPOINTMENT 1. BACK PAIN HISTORY OF PRESENT ILLNESS HISTORY OF PRESENT ILLNESS: PAIN THE PATIENT DESCRIBES THE PAIN... 66 YEAR OLD FEMALE PATIENT WITH HISTORY OF CHRONIC BACK PAIN. PATIENT DESCRIBES THE PAIN ACHING WITH A PAIN SCORE OF 3/10 ON TODAY'S VISIT. PATIENT STATES THAT SHE IS DOING A LOT BETTER, AND WOULD LIKE TO HOLD OFF INJECTIONS AT THIS TIME. PATIENT STATES THAT GABAPENTIN HAS HELPED IN TAKING AWAY A LOT OF THE PAIN BUT SOME OF THE PAIN IS STILL THERE AND THE RADIATING PAIN DOWN THE LEG IS STILL THERE. PATIENT DENIES UNEXPLAINABLE WEIGHT LOSS, FEVER, CHILLS, NEW CHANGES ON HER URINARY OR BOWEL CONTROL. FALL RISK SCREENING: SCREENING :NO FALLS IN THE PAST YEAR CURRENT MEDICATIONS TAKING DILAUDID 2 MG TABLET 1 TABLET NEEDED ORALLY CODE D FOR CHRONIC PAIN DAY PRN FOR PAIN MDD1 TAKING GABAPENTIN 300 MG CAPSULE 1 CAPSULE ORALLY FOUR TIMES DAILY FOR PAIN MDD4 TAKING TRAZODONE 50 50MG TABLET 2 TABLETS ORAL BEFORE BEDTIME TAKING LISINOPRIL 2.5 2.5 MG TABLET ORAL DAILY TAKING BUPROPION HCL ER (XL) 300 MG TABLET EXTENDED RELEASE 24 HOUR 1 TABLET IN THE MORNING ORALLY ONCE A DAY TAKING OMEPRAZOLE 20MG 20MG TABLET ORAL BID TAKING ONDANSETRON 8 MG TABLET DISPERSIBLE ORALLY PRN TAKING SENNA 8.6 MG CAPSULE 1-2 CAPSULES AT BEDTIME NEEDED ORALLY ONCE A DAY TAKING DIPHENHYDRAMINE HCL 25 MG CAPSULE 1-2 CAPSULE NEEDED ORALLY EVERY 6 HRS PRN TAKING RESTASIS 0.05 % EMULSION 1 NULL INTO AFFECTED EYE OPHTHALMIC TWICE A DAY TAKING MAGNESIUM SULFATE 1 TAB 400MGS ORAL DAILY TAKING BUPROPION HCL 75 MG TABLET 1 TABLET ORALLY ONCE A DAY NOT-TAKING LEVSIN 0.125 MG TABLET 1 TABLET BEFORE MEALS NEEDED ORALLY EVERY 4 HRS NOT-TAKING PAZEO 0.7 % SOLUTION 1 DROP INTO AFFECTED EYE OPHTHALMIC ONCE A DAY MEDICATION LIST REVIEWED AND RECONCILED WITH THE PATIENT PAST MEDICAL HISTORY HTN DEPRESSION HIATLE HERNIA GERD PANCREATITUS HEARING LOSS IBS LUPUS RIGHT WRIST FX BILATERAL ANLKE FX OSTEOARTHRITIS ASTHMA MRSA RIGHT HIP ALLERGIES PENICILLIN (FOR ALLERGIES USE ONLY): ANAPHYLAXIS VANCOMYCIN HCL: ANAPHYLAXIS SULFA (FOR ALLERGY USE ONLY): ANAPHYLAXIS LACTOSE INTOLERANTE: GI DISTRESS REGLAN: HYPERTENSION CLINDAMYCIN HCL COMPAZINE CODEINE SULFATE: RESPIRATORY DISTRESS/CONFUSION VERSED: RESPIRATORY DISTRESS/CONFUSION CEPHALOSPORINS: RASH HIVES ERTHROMYCOIN: RASH HIVES KEFLEX: RASH HIVES NSAIDS: GI DISTRESS ASPIRIN: GI DISTRESS MORPHINE: AGGRESSION, CONFUSION AND AGGITATION: SIDE EFFECTS SURGICAL HISTORY COLON RESCECTION SP SPONTAEOUS RUPTURE 1975 HYSTERECTOMY 1988 TOTAL LT HIP 1991 TOTAL RT HIP 1989 OVARIAN CYSTECTOMY 1987 FAMILY HISTORY NO FAMILY HISTORY DOCUMENTED. SOCIAL HISTORY GENERAL: PAIN CLINIC PFS, CLERGY, PUBLIC HEALTH REFERRALS CLERGY REFERRAL NEEDED?NO WAS THE PROVIDER NOTIFIED OF ANY PERTINENT INFO?NO PFS REFERRAL NEEDED?NO PUBLIC HEALTH REFERRAL NEEDED?NO PATIENT: ____. HOSPITALIZATION/MAJOR DIAGNOSTIC PROCEDURE MRSA TO RIGHT HIP 2009 REVIEW OF SYSTEMS CONSTITUTIONAL: ANY CHANGE IN YOUR MEDICAL CONDITION? NO . CHILLS NO . FEVER NO . INFECTION: DO YOU HAVE NEW INFECTIONS? NO . DO YOU HAVE HISTORY OF MRSA? NO . MUSCULOSKELETAL: ANY NEW PATTERNS OF PAIN OR NUMBNESS? YES, CRAMPS IN UPPER FRONT LEGS ARE BACK AND WORSE. ALSO HAS RESTLESS LEG PAIN AGAIN. AND FEET HURT MORE AT NIGHT TIME. . GASTROENTEROLOGY: ANY NEW CHANGE IN BOWEL CONTROL? NO . GENITOURINARY: ANY NEW CHANGE IN BLADDER CONTROL? NO . IS THERE A CHANCE YOU COULD BE ? NO . HEMATOLOGY/LYMPH: DO YOU TAKE ANY BLOOD THINNERS? (FOR EXAMPLE- COUMADIN, PLAVIX, AGGRENOX, PLATEL, PRADAXA, OR XARELTO) NO . WHEN WAS YOUR LAST DOSE? DATE: TIME: . NEUROLOGY: HAVE YOU FALLEN IN THE PAST 6 MONTHS? YES . ANY NEW EXTREMITY NUMBNESS OR WEAKNESS? NO . CARDIOLOGY: DO YOU HAVE A PACEMAKER OR DEFIBRILLATOR? NO . RESPIRATORY: HAVE YOU BEEN SICK IN THE PAST WEEK? NO . FEVER NO . FLU LIKE SYMPTOMS? NO . COUGH NO . INTEGUMENTARY: DO YOU HAVE ANY RASHES OR OPEN SORES? NO . ALLERGIC/IMMUNO: ARE YOU ALLERGIC TO SHELLFISH OR IV DYE? YES, YES FOR SHELLFISH AND OLD IV DYE. JUST HAD MRI WITH CONTRAST AND HAD DYE WITHOUT REACTION. . ANY NEW ALLERGIES? NO . PSYCHIATRIC: DO YOU HAVE THOUGHTS OF HURTING YOURSELF OR SOMEONE ELSE? NO . ARE YOU ABUSED, NEGLECTED, OR IN AN UNSAFE ENVIRONMENT? NO . ENDOCRINOLOGY: ARE YOU DIABETIC? NO . OTHER: DO YOU NEED ANY PRESCRIPTIONS? YES . IF YES, PLEASE LIST: GABAPENTIN . ANY NEW PROBLEMS WITH YOUR MEDICATIONS? NO . WHEN DID YOU LAST EAT? ____ . WHEN DID YOU LAST DRINK? ____ . WHAT DID YOU LAST DRINK? ____ . NAME OF PERSON DRIVING YOU HOME? ____ . DO YOU HAVE ANY OTHER QUESTIONS OR CONCERNS YES, [facility] LAST WEEK AND SUGGEST INCREASING GABAPENTIN. . REVIEWED BY: PROVIDER: ROSA M MCCORMACK MD . VITAL SIGNS WT 164 LBS, HT 64 IN, BMI 28.15 INDEX, BP 139/78 MM HG, HR 82 /MIN, RR 16 /MIN, TEMP 97.4 F, OXYGEN SAT % 97%, NA INITIALS SC 13:21, REVIEWED BY: KAREN. EXAMINATION : PATIENT IS ALERT O X 3 AND COOPERATIVE. THERE IS SOME PAIN AND TENDERNESS IN THE LUMBAR PARASPINAL MUSCLE GROUP. 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 ASSESSMENTS SPONDYLOSIS WITHOUT MYELOPATHY OR RADICULOPATHY, LUMBAR REGION - M47.816 (PRIMARY) SPONDYLOSIS WITHOUT MYELOPATHY OR RADICULOPATHY, LUMBOSACRAL REGION - M47.817 TREATMENT SPONDYLOSIS WITHOUT MYELOPATHY OR RADICULOPATHY, LUMBAR REGION NOTES: WE DISCUSSED SEVERAL ISSUES WITH MS. GOLDMAN'S PAIN MANAGEMENT CASE. PATIENT WILL RECEIVE A REFILL OF HER DILAUDID AND GABAPENTIN TODAY. PATIENT WILL ALSO BEGIN TO INCREASE HER GABAPENTIN INTAKE ONE IN THE MORNING, ONE AT NOON, ONE IN THE AFTERNOON, AND ONE BEFORE BEDTIME, TO SEE HOW IT FURTHER AIDS IN HER PAIN RELIEF, ADVISED PATIENT TO INCREASE THE MEDICATION INTAKE SLOWLY.. PATIENT TO FOLLOW UP WITH ME IN 2 MONTHS. OTHERS REFILL GABAPENTIN CAPSULE, 400 MG, 1 CAPSULE, ORALLY, FOUR TIMES DAILY FOR PAIN MDD4, 30 DAY(S), 120, REFILLS 2 REFILL DILAUDID TABLET, 2 MG, 1 TABLET NEEDED, ORALLY CODE D FOR CHRONIC PAIN, DAY PRN FOR PAIN MDD1, 60 DAYS, 20, REFILLS 0 PROCEDURE CODES FA211 ESTABILISHED PATIENT [facility] FACILITY CHARGE H0265 PAIN ASSESS POS TOOL F/U PLAN DOC G8427 DOC MEDS VERIFIED W/PT OR RE DISPOSITION & COMMUNICATION FOLLOW UP 2 MONTHS ELECTRONICALLY SIGNED BY ROSA M MCCORMACK MD ON 12/30/2016 AT 11:40 AM EDT DISCLAIMER : THIS IS A VISIT SUMMARY EXTRACTED FROM THE [employer] CHART. IT IS NOT A COPY OF THE [employer] PROGRESS NOTE. STEFANIED
== END ==
LOC: M PAIN 13:00
PROVIDERS: ATTEND Anesthesiology
DX: G89.29 Other chronic pain (principal); M47.816 Spondylosis without myelopathy or radiculopathy, lumbar region; M47.817 Spondylosis without myelopathy or radiculopathy, lumbosacral region; I10 Essential (primary) hypertension; F32.9 Major depressive disorder, single episode, unspecified; K44.9 Diaphragmatic hernia without obstruction or gangrene; K58.9 Irritable bowel syndrome, unspecified; M32.9 Systemic lupus erythematosus, unspecified; M19.90 Unspecified osteoarthritis, unspecified site; J45.909 Unspecified asthma, uncomplicated; Z86.14 Personal history of Methicillin resistant Staphylococcus aureus infection; Z96.643 Presence of artificial hip joint, bilateral; Z88.0 Allergy status to penicillin; Z88.1 Allergy status to other antibiotic agents; Z88.2 Allergy status to sulfonamides; Z88.5 Allergy status to narcotic agent; Z88.8 Allergy status to other drugs, medicaments and biological substances; Z79.899 Other long term (current) drug therapy

== ENCOUNTER 2017-03-07 15:37 | Emergency (ER) | payer OTHER ==
[~2017-03-07] VITALS: Ht 162.6 cm; Wt 72.0 kg
[~2017-03-07 15:37] MED LIST changes: -BUPR300T34; -BUPR75TA5; -GABA-283; -HYDR2TAB2; -LISI2.5T3; -OMEP20CA3; -REST0.05; -TRAZ50TA11
[2017-03-07] MEDS ORDERED: HYDR2TAB2 (15:51)
[2017-03-07] MEDS ORDERED: BUPR75TA5 (15:51)
[2017-03-07] MEDS ORDERED: REST0.05 (15:51)
[2017-03-07] MEDS ORDERED: LISI2.5T3 (15:51)
[2017-03-07] MEDS ORDERED: BUPR300T34 (15:51)
[2017-03-07] MEDS ORDERED: TRAZ50TA11 (15:51)
[2017-03-07] MEDS ORDERED: GABA-283 (15:51)
[2017-03-07] MEDS ORDERED: OMEP20CA3 (15:51)
[2017-03-07 17:10] VITALS: BP 136/65
== END 2017-03-07 17:15 | disposition home or self-care (01) ==
LOC: M ED 15:37
DX: M79.671 Pain in right foot (principal); M19.071 Primary osteoarthritis, right ankle and foot; I10 Essential (primary) hypertension; J45.909 Unspecified asthma, uncomplicated; K57.92 Diverticulitis of intestine, part unspecified, without perforation or abscess without bleeding; K58.9 Irritable bowel syndrome, unspecified; M54.9 Dorsalgia, unspecified; F41.9 Anxiety disorder, unspecified; F32.9 Major depressive disorder, single episode, unspecified; Z79.899 Other long term (current) drug therapy; Z88.1 Allergy status to other antibiotic agents; Z88.8 Allergy status to other drugs, medicaments and biological substances; Z88.0 Allergy status to penicillin; Z88.2 Allergy status to sulfonamides; Z88.5 Allergy status to narcotic agent
CPT/HCPCS: 73630; 99283; G0463

== ENCOUNTER → 2017-03-07 | Outpatient (CLI) | payer OTHER ==
[~2017-03-07] MED LIST changes: +BUPR300T34; +BUPR75TA5; +GABA-283; +HYDR2TAB2; +LISI2.5T3; +OMEP20CA3; +REST0.05; +TRAZ50TA11
--- NOTE | 2017-03-07 16:25 | REP ---
RIGHT FOOT, FOUR VIEWS: HISTORY: Pain. There is no acute fracture or dislocation. There is narrowing of the first metatarsophalangeal joint space. IMPRESSION: Degenerative change as described above. Signed by Justin Brown MD 03/07/2017 04:41 P
== END ==
LOC: M RAD 15:04
PROVIDERS: ATTEND Nurse Practitioner Family
DX: M19.071 Primary osteoarthritis, right ankle and foot (principal); M79.671 Pain in right foot

== ENCOUNTER → 2017-03-07 | Outpatient (CLI) | payer OTHER ==
--- NOTE | 2017-03-17 23:55 | ECWPNPC ---
PATIENT NAME: RICKY GOLDMAN : 1950 GENDER: FEMALE VISIT DATE: 03/07/2017 DISCHARGE DATE: 03/07/17 1431 VISIT LOCKED DATE TIME: PHYSICIAN: ROSA M MCCORMACK RESOURCE: ROSA M MCCORMACK REASON FOR APPOINTMENT 1. BACK PAIN HISTORY OF PRESENT ILLNESS HISTORY OF PRESENT ILLNESS: PAIN THE PATIENT DESCRIBES THE PAIN... 66 YEAR OLD FEMALE PATIENT WITH HISTORY OF CHRONIC LOW BACK PAIN. PATIENT DESCRIBES THE PAIN SHOOTING AND HAVING IT ALL THE TIME WITH A PAIN SCORE OF 6/10. CURRENTLY THE PATIENT IS USING GABAPENTIN AND DILAUDID TO AID IN PAIN RELIEF AND REPORTS THE MEDICATION AIDING IN PAIN RELIEF WELL MOBILITY AND FUNCTIONALITY. PATIENT REPORTS DOING FAIRLY WELL HOWEVER SHE RECENTLY INJURED HER FOOT AND STATES THAT IS WHAT IS CAUSING HER PAIN THIS TIME. PATIENT DENIES UNEXPLAINABLE WEIGHT LOSS, FEVER, CHILLS, NEW CHANGES ON HER URINARY OR BOWEL CONTROL. FALL RISK SCREENING: SCREENING :NO FALLS IN THE PAST YEAR CURRENT MEDICATIONS TAKING GABAPENTIN 400 MG CAPSULE 1 CAPSULE ORALLY FOUR TIMES DAILY FOR PAIN MDD4 TAKING DILAUDID 2 MG TABLET 1 TABLET NEEDED ORALLY CODE D FOR CHRONIC PAIN DAY PRN FOR PAIN MDD1 TAKING TRAZODONE 50 50MG TABLET 2 TABLETS ORAL BEFORE BEDTIME TAKING LISINOPRIL 2.5 2.5 MG TABLET ORAL DAILY TAKING BUPROPION HCL ER (XL) 300 MG TABLET EXTENDED RELEASE 24 HOUR 1 TABLET IN THE MORNING ORALLY ONCE A DAY TAKING OMEPRAZOLE 20MG 20MG TABLET ORAL BID TAKING ONDANSETRON 8 MG TABLET DISPERSIBLE ORALLY PRN TAKING SENNA 8.6 MG CAPSULE 1-2 CAPSULES AT BEDTIME NEEDED ORALLY ONCE A DAY TAKING DIPHENHYDRAMINE HCL 25 MG CAPSULE 1-2 CAPSULE NEEDED ORALLY EVERY 6 HRS PRN TAKING RESTASIS 0.05 % EMULSION 1 NULL INTO AFFECTED EYE OPHTHALMIC TWICE A DAY TAKING BUPROPION HCL 75 MG TABLET 1 TABLET ORALLY ONCE A DAY NOT-TAKING MAGNESIUM SULFATE 1 TAB 400MGS ORAL DAILY NOT-TAKING LEVSIN 0.125 MG TABLET 1 TABLET BEFORE MEALS NEEDED ORALLY EVERY 4 HRS NOT-TAKING PAZEO 0.7 % SOLUTION 1 DROP INTO AFFECTED EYE OPHTHALMIC ONCE A DAY MEDICATION LIST REVIEWED AND RECONCILED WITH THE PATIENT PAST MEDICAL HISTORY HTN DEPRESSION HIATLE HERNIA GERD PANCREATITUS HEARING LOSS IBS LUPUS RIGHT WRIST FX BILATERAL ANLKE FX OSTEOARTHRITIS ASTHMA MRSA RIGHT HIP ALLERGIES PENICILLIN (FOR ALLERGIES USE ONLY): ANAPHYLAXIS VANCOMYCIN HCL: ANAPHYLAXIS SULFA (FOR ALLERGY USE ONLY): ANAPHYLAXIS LACTOSE INTOLERANTE: GI DISTRESS REGLAN: HYPERTENSION CLINDAMYCIN HCL COMPAZINE CODEINE SULFATE: RESPIRATORY DISTRESS/CONFUSION VERSED: RESPIRATORY DISTRESS/CONFUSION CEPHALOSPORINS: RASH HIVES ERTHROMYCOIN: RASH HIVES KEFLEX: RASH HIVES NSAIDS: GI DISTRESS ASPIRIN: GI DISTRESS MORPHINE: AGGRESSION, CONFUSION AND AGGITATION: SIDE EFFECTS REVIEW OF SYSTEMS REVIEWED BY: PROVIDER: ROSA M MCCORMACK MD . CONSTITUTIONAL: ANY CHANGE IN YOUR MEDICAL CONDITION? NO . CHILLS NO . FEVER NO . INFECTION: DO YOU HAVE NEW INFECTIONS? NO . DO YOU HAVE HISTORY OF MRSA? NO . MUSCULOSKELETAL: ANY NEW PATTERNS OF PAIN OR NUMBNESS? YES, MORE TINGLING IN THIGHS AND LOW BACK IS WORSE. . GASTROENTEROLOGY: ANY NEW CHANGE IN BOWEL CONTROL? NO . GENITOURINARY: ANY NEW CHANGE IN BLADDER CONTROL? NO . IS THERE A CHANCE YOU COULD BE ? NO . HEMATOLOGY/LYMPH: DO YOU TAKE ANY BLOOD THINNERS? (FOR EXAMPLE- COUMADIN, PLAVIX, AGGRENOX, PLATEL, PRADAXA, OR XARELTO) NO . WHEN WAS YOUR LAST DOSE? DATE: TIME: . NEUROLOGY: HAVE YOU FALLEN IN THE PAST 6 MONTHS? YES . ANY NEW EXTREMITY NUMBNESS OR WEAKNESS? NO . CARDIOLOGY: DO YOU HAVE A PACEMAKER OR DEFIBRILLATOR? NO . RESPIRATORY: HAVE YOU BEEN SICK IN THE PAST WEEK? NO . FEVER NO . FLU LIKE SYMPTOMS? NO . COUGH NO . INTEGUMENTARY: DO YOU HAVE ANY RASHES OR OPEN SORES? NO . ALLERGIC/IMMUNO: ARE YOU ALLERGIC TO SHELLFISH OR IV DYE? NO . ANY NEW ALLERGIES? NO . PSYCHIATRIC: DO YOU HAVE THOUGHTS OF HURTING YOURSELF OR SOMEONE ELSE? NO . ARE YOU ABUSED, NEGLECTED, OR IN AN UNSAFE ENVIRONMENT? NO . ENDOCRINOLOGY: ARE YOU DIABETIC? NO . OTHER: DO YOU NEED ANY PRESCRIPTIONS? YES . IF YES, PLEASE LIST: HYDROMORPHONE . ANY NEW PROBLEMS WITH YOUR MEDICATIONS? NO . WHEN DID YOU LAST EAT? ____ . WHEN DID YOU LAST DRINK? ____ . WHAT DID YOU LAST DRINK? ____ . NAME OF PERSON DRIVING YOU HOME? ____ . DO YOU HAVE ANY OTHER QUESTIONS OR CONCERNS YES, HURT HER RIGHT FOOT COMING IN HERE TODAY. . VITAL SIGNS WT 164.0 LBS, HT 64 IN, BMI 28.15 INDEX, BP 125/66 MM HG, HR 78 /MIN, RR 16 /MIN, TEMP 98.6 F, OXYGEN SAT % 96%, NA INITIALS TL 1323, REVIEWED BY: CM. EXAMINATION : PATIENT IS ALERT O X 3 AND COOPERATIVE. THERE IS SOME PAIN AND TENDERNESS IN THE LUMBAR PARASPINAL MUSCLE GROUP. 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 ASSESSMENTS SPONDYLOSIS WITHOUT MYELOPATHY OR RADICULOPATHY, LUMBAR REGION - M47.816 (PRIMARY) SPONDYLOSIS WITHOUT MYELOPATHY OR RADICULOPATHY, LUMBOSACRAL REGION - M47.817 TREATMENT SPONDYLOSIS WITHOUT MYELOPATHY OR RADICULOPATHY, LUMBAR REGION NOTES: WE DISCUSSED SEVERAL ISSUES WITH MRS. GOLDMAN'S PAIN MANAGEMENT CASE. AT THIS TIME THE PATIENT WILL CONTINUE WITH THE SAME MEDICATION REGIME. PATIENT DENIES ABUSE OF ANY MEDICATION, DENIES USE OF ILLEGAL SUBSTANCES, AND STATES THAT SHE IS ONLY USING THE MEDICATION FOR PAIN MANAGEMENT. WE DISCUSSED THE POSSIBILITY OF HAVING HER PRIMARY CARE DOCTOR TAKE OVER HER MEDICATIONS. PATIENT WILL FOLLOW UP WITH LIBERTY DILLON IN 2 MONTHS. INSTRUCTIONS WERE GIVEN, QUESTIONS WERE ANSWERED, PATIENT REPORTS UNDERSTANDING AND AGREES WITH THE PLAN. I, PENNY BUSTILLO, DOCUMENTED THE ABOVE INFORMATION ACTING A SCRIBE FOR DR. MCCORMACK. I HAVE REVIEWED THE ABOVE DOCUMENT, WRITTEN BY PENNY MEDINA AND I VERIFY THAT IT IS ACCURATE. OTHERS REFILL GABAPENTIN CAPSULE, 400 MG, 1 CAPSULE, ORALLY, FOUR TIMES DAILY FOR PAIN MDD4, 30 DAY(S), 120, REFILLS 2 REFILL DILAUDID TABLET, 2 MG, 1 TABLET NEEDED, ORALLY CODE D FOR CHRONIC PAIN, DAY PRN FOR PAIN MDD1, 60 DAYS, 20, REFILLS 0 PROCEDURE CODES FA211 ESTABILISHED PATIENT [facility] FACILITY CHARGE G8427 DOC MEDS VERIFIED W/PT OR RE G8739 PAIN ASSESS POS TOOL F/U PLAN DOC DISPOSITION & COMMUNICATION FOLLOW UP 3 WEEKS ELECTRONICALLY SIGNED BY ROSA M MCCORMACK MD ON 03/17/2017 AT 10:16 PM EDT DISCLAIMER : THIS IS A VISIT SUMMARY EXTRACTED FROM THE [employer] CHART. IT IS NOT A COPY OF THE [employer] PROGRESS NOTE. MTDD
== END ==
LOC: M PAIN 12:40
PROVIDERS: ATTEND Anesthesiology
DX: G89.29 Other chronic pain (principal); M47.816 Spondylosis without myelopathy or radiculopathy, lumbar region; M47.817 Spondylosis without myelopathy or radiculopathy, lumbosacral region; I10 Essential (primary) hypertension; F32.9 Major depressive disorder, single episode, unspecified; K44.9 Diaphragmatic hernia without obstruction or gangrene; K21.9 Gastro-esophageal reflux disease without esophagitis; K58.9 Irritable bowel syndrome, unspecified; M32.9 Systemic lupus erythematosus, unspecified; M19.90 Unspecified osteoarthritis, unspecified site; J45.909 Unspecified asthma, uncomplicated; Z86.14 Personal history of Methicillin resistant Staphylococcus aureus infection; H91.90 Unspecified hearing loss, unspecified ear; Z79.891 Long term (current) use of opiate analgesic; Z79.899 Other long term (current) drug therapy; Z88.0 Allergy status to penicillin; Z88.1 Allergy status to other antibiotic agents; Z88.2 Allergy status to sulfonamides; Z88.5 Allergy status to narcotic agent; Z88.8 Allergy status to other drugs, medicaments and biological substances; Z88.6 Allergy status to analgesic agent

== ENCOUNTER → 2017-05-24 | Outpatient (CLI) | payer OTHER ==
[~2017-05-24] MED LIST changes: +BUPR300T34; +BUPR75TA5; +GABA-283; +HYDR2TAB2; +LISI2.5T3; +OMEP20CA3; +REST0.05; +TRAZ50TA11
--- NOTE | 2017-06-22 00:42 | ECWPNPC ---
PATIENT NAME: RICKY GOLDMAN : 1950 GENDER: FEMALE VISIT DATE: 05/24/2017 DISCHARGE DATE: 05/24/17 1020 VISIT LOCKED DATE TIME: PHYSICIAN: LIBERTY DILLON RESOURCE: LIBERTY DILLON REASON FOR APPOINTMENT 1. BACK PAIN HISTORY OF PRESENT ILLNESS HISTORY OF PRESENT ILLNESS: PAIN THE PATIENT DESCRIBES THE PAIN... FALL RISK SCREENING: SCREENING :NO FALLS IN THE PAST YEAR TODAY'S VISIT: NOTES: RATES PAIN LEVEL TODAY 01/09.LAST VISIT 03/07/17. [facility] HAS HAD A BUSY. SUMMER. GABAPENTIN HELPS THE NERVE PAIN. CURRENT MEDICATIONS TAKING TRAZODONE 50 50MG TABLET 2 TABLETS ORAL BEFORE BEDTIME TAKING LISINOPRIL 2.5 2.5 MG TABLET ORAL DAILY TAKING BUPROPION HCL ER (XL) 300 MG TABLET EXTENDED RELEASE 24 HOUR 1 TABLET IN THE MORNING ORALLY ONCE A DAY TAKING OMEPRAZOLE 20MG 20MG TABLET ORAL BID TAKING ONDANSETRON 8 MG TABLET DISPERSIBLE ORALLY PRN TAKING SENNA 8.6 MG CAPSULE 1-2 CAPSULES AT BEDTIME NEEDED ORALLY ONCE A DAY TAKING DIPHENHYDRAMINE HCL 25 MG CAPSULE 1-2 CAPSULE NEEDED ORALLY EVERY 6 HRS PRN TAKING RESTASIS 0.05 % EMULSION 1 NULL INTO AFFECTED EYE OPHTHALMIC TWICE A DAY TAKING BUPROPION HCL 75 MG TABLET 1 TABLET ORALLY ONCE A DAY TAKING GABAPENTIN 400 MG CAPSULE 1 CAPSULE ORALLY FOUR TIMES DAILY FOR PAIN MDD4 TAKING DILAUDID 2 MG TABLET 1 TABLET NEEDED ORALLY CODE D FOR CHRONIC PAIN DAY PRN FOR PAIN MDD1 TAKING DOXYCYCLINE HYCLATE 100 MG CAPSULE 1 CAPSULE ORALLY EVERY 12 HRS, NOTES: STARTED 05/21 NOT-TAKING MAGNESIUM SULFATE 1 TAB 400MGS ORAL DAILY NOT-TAKING LEVSIN 0.125 MG TABLET 1 TABLET BEFORE MEALS NEEDED ORALLY EVERY 4 HRS NOT-TAKING PAZEO 0.7 % SOLUTION 1 DROP INTO AFFECTED EYE OPHTHALMIC ONCE A DAY MEDICATION LIST REVIEWED AND RECONCILED WITH THE PATIENT PAST MEDICAL HISTORY HTN DEPRESSION HIATLE HERNIA GERD PANCREATITUS HEARING LOSS IBS LUPUS RIGHT WRIST FX BILATERAL ANLKE FX OSTEOARTHRITIS ASTHMA MRSA RIGHT HIP ALLERGIES PENICILLIN (FOR ALLERGIES USE ONLY): ANAPHYLAXIS VANCOMYCIN HCL: ANAPHYLAXIS SULFA (FOR ALLERGY USE ONLY): ANAPHYLAXIS LACTOSE INTOLERANTE: GI DISTRESS REGLAN: HYPERTENSION CLINDAMYCIN HCL COMPAZINE CODEINE SULFATE: RESPIRATORY DISTRESS/CONFUSION VERSED: RESPIRATORY DISTRESS/CONFUSION CEPHALOSPORINS: RASH HIVES ERTHROMYCOIN: RASH HIVES KEFLEX: RASH HIVES NSAIDS: GI DISTRESS ASPIRIN: GI DISTRESS MORPHINE, NARCOTIC: AGGRESSION, CONFUSION AND AGGITATION: SIDE EFFECTS SHELL FISH AND IV CONTRAST: RASH: ALLERGY SURGICAL HISTORY COLON RESCECTION SP SPONTAEOUS RUPTURE 1975 HYSTERECTOMY 1988 TOTAL LT HIP 1991 TOTAL RT HIP 1989 OVARIAN CYSTECTOMY 1987 SOCIAL HISTORY GENERAL: TOBACCO USE ARE YOU A:NONSMOKER ALCOHOL SCREENING POINTS1 INTERPRETATIONNEGATIVE RECREATIONAL DRUG USE DRUG USE?NO CAFFEINE CAFFEINE USE?YES HOW OFTEN AND HOW MUCH? 3 CUPS COFFEE/DAY FAITH [id number] EPISCOPALIAN LANGUAGE LANGUAGES SPOKEN:MALDIVIAN PAIN CLINIC PFS, CLERGY, PUBLIC HEALTH REFERRALS PFS REFERRAL NEEDED?NO CLERGY REFERRAL NEEDED?NO PUBLIC HEALTH REFERRAL NEEDED?NO WAS THE PROVIDER NOTIFIED OF ANY PERTINENT INFO?NO HAS THE PATIENT BEEN EDUCATED REGARDING HIS/HER PLAN OF CARE?YES HAS THE PATIENT BEEN EDUCATED REGARDING PAIN, THE RISK FOR PAIN, THE IMPORTANCE OF EFFECTIVE PAIN MANAGEMENT, AND THE PAIN ASSESSMENT PROCESS?YES PATIENT: ____. ADVANCE DIRECTIVES HEALTH CARE PROXY?YES NAME OF HCP SISTER DAWIT CARDENAS CONTACT # FOR HCP [phone] DO YOU HAVE A COPY WITH YOU?NO DO YOU HAVE A DNR?NO WOULD YOU LIKE MORE INFORMATION?NO LIVING WILL?NO WOULD YOU LIKE MORE INFORMATION?NO POWER OF DEPUTY FIRE MARSHAL?YES HOSPITALIZATION/MAJOR DIAGNOSTIC PROCEDURE MRSA TO RIGHT HIP 2009 REVIEW OF SYSTEMS REVIEWED BY: PROVIDER: LIBERTY SEQUEIRA . CONSTITUTIONAL: ANY CHANGE IN YOUR MEDICAL CONDITION? NO . CHILLS NO . FEVER NO . INFECTION: DO YOU HAVE NEW INFECTIONS? NO . DO YOU HAVE HISTORY OF MRSA? NO . MUSCULOSKELETAL: ANY NEW PATTERNS OF PAIN OR NUMBNESS? YES, PAIN HAS INCREASED IN FREQUENCY AND SEVERITY . GASTROENTEROLOGY: ANY NEW CHANGE IN BOWEL CONTROL? NO . GENITOURINARY: ANY NEW CHANGE IN BLADDER CONTROL? NO . IS THERE A CHANCE YOU COULD BE ? NO . HEMATOLOGY/LYMPH: DO YOU TAKE ANY BLOOD THINNERS? (FOR EXAMPLE- COUMADIN, PLAVIX, AGGRENOX, PLATEL, PRADAXA, OR XARELTO) NO . WHEN WAS YOUR LAST DOSE? DATE: TIME: . NEUROLOGY: HAVE YOU FALLEN IN THE PAST 6 MONTHS? YES, LAST 3 WEEKS AGO, TRIPPED OVER EDGE OF BARN,SMASHED LEFT HAND AND LEFT HIP . ANY NEW EXTREMITY NUMBNESS OR WEAKNESS? NO . CARDIOLOGY: DO YOU HAVE A PACEMAKER OR DEFIBRILLATOR? NO . RESPIRATORY: HAVE YOU BEEN SICK IN THE PAST WEEK? YES . FEVER YES . FLU LIKE SYMPTOMS? NO . COUGH YES, NON-PRODUCTIVE . INTEGUMENTARY: DO YOU HAVE ANY RASHES OR OPEN SORES? 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 ALLERGIC/IMMUNO: ARE YOU ALLERGIC TO SHELLFISH OR IV DYE? YES, SHELL FISH AND OLD IV CONTRAST . ANY NEW ALLERGIES? NO . PSYCHIATRIC: DO YOU HAVE THOUGHTS OF HURTING YOURSELF OR SOMEONE ELSE? NO . ARE YOU ABUSED, NEGLECTED, OR IN AN UNSAFE ENVIRONMENT? NO . ENDOCRINOLOGY: ARE YOU DIABETIC? NO . OTHER: DO YOU NEED ANY PRESCRIPTIONS? YES . IF YES, PLEASE LIST: GAPABENTIN AND DILAUDID . ANY NEW PROBLEMS WITH YOUR MEDICATIONS? NO . WHEN DID YOU LAST EAT? ____ . WHEN DID YOU LAST DRINK? ____ . WHAT DID YOU LAST DRINK? ____ . NAME OF PERSON DRIVING YOU HOME? ____ . DO YOU HAVE ANY OTHER QUESTIONS OR CONCERNS NO . VITAL SIGNS WT 164.0 LBS, HT 64 IN, BMI 28.15 INDEX, BP 161/81 MM HG, HR 78 /MIN, RR 18 /MIN, TEMP 97.6 F, OXYGEN SAT % 99%, NA INITIALS SC 09:40, REVIEWED BY: JONO. EXAMINATION GENERAL EXAMINATION: PSYCHALERT , ORIENTED X 3 , APPROPRIATE MOOD AND AFFECT . LUNGS:CLEAR TO AUSCULTATION BILATERALLY. HEART:HEART RATE REGULAR. MUSCULOSKELETAL:STEPPING GAIT WITH DIFFUSE WEAKNESS OVER LEFT LOWER EXTREMITY. POINT TENDERNESS OVER LUMBAR SPINOUS PROCESSES AND LEFT >RIGHT SIJ . ASSESSMENTS SPONDYLOSIS WITHOUT MYELOPATHY OR RADICULOPATHY, LUMBAR REGION - M47.816 (PRIMARY) SPONDYLOSIS WITHOUT MYELOPATHY OR RADICULOPATHY, LUMBOSACRAL REGION - M47.817 TREATMENT SPONDYLOSIS WITHOUT MYELOPATHY OR RADICULOPATHY, LUMBAR REGION REFILL GABAPENTIN TABLET, 800 MG, 1 CAPSULE, ORALLY, TAKE 1/2 - 1 TAB PO Q AM AND MIDDAY, AND 1 TAB AT BEDTIME, 30 DAY(S), 90, REFILLS 2 REFILL DILAUDID TABLET, 2 MG, 1 TABLET NEEDED, ORALLY CODE D FOR CHRONIC PAIN, DAY PRN FOR PAIN MDD1, 60 DAYS, 20, REFILLS 0 CLINICAL NOTES: ISTOP REGISTRY REVIEWED AND DEMNOSTRATES COMPLLIANCE. (REF# [id number]) BRINGS IN MEDICATIONS WHICH IS APPROPRIATE FOR WHAT WAS DISPENSED. RECENT URINE TOXICOLOGY REVIEWED. NO UNAUTHORIZED MEDICATIONS. NO ILLICIT SUBSTANCES AND PRESCRIBED MEDICATIONS WERE PRESENT. PROCEDURE CODES FA211 ESTABILISHED PATIENT [facility] CHARGE DISPOSITION & COMMUNICATION FOLLOW UP 3 MONTH (REASON: BACK PAIN) ELECTRONICALLY SIGNED BY CHELLE STEWARD ON 06/21/2017 AT 07:10 AM EDT DISCLAIMER : THIS IS A VISIT SUMMARY EXTRACTED FROM THE [employer] CHART. IT IS NOT A COPY OF THE [employer] PROGRESS NOTE. VALERIE
== END | disposition home or self-care (01) ==
LOC: M PAIN 09:00
PROVIDERS: ATTEND Nurse Practitioner Family
DX: G89.29 Other chronic pain (principal); M47.816 Spondylosis without myelopathy or radiculopathy, lumbar region; M47.817 Spondylosis without myelopathy or radiculopathy, lumbosacral region; I10 Essential (primary) hypertension; F33.9 Major depressive disorder, recurrent, unspecified; K44.9 Diaphragmatic hernia without obstruction or gangrene; K21.9 Gastro-esophageal reflux disease without esophagitis; K58.9 Irritable bowel syndrome, unspecified; D68.62 Lupus anticoagulant syndrome; M19.90 Unspecified osteoarthritis, unspecified site; J45.909 Unspecified asthma, uncomplicated; Z86.14 Personal history of Methicillin resistant Staphylococcus aureus infection; Z79.899 Other long term (current) drug therapy; Z88.0 Allergy status to penicillin; Z88.1 Allergy status to other antibiotic agents; Z88.2 Allergy status to sulfonamides; Z88.5 Allergy status to narcotic agent; Z88.8 Allergy status to other drugs, medicaments and biological substances; Z91.013 Allergy to seafood; Z91.041 Radiographic dye allergy status

== ENCOUNTER → 2017-09-23 | Outpatient (CLI) | payer OTHER, MEDICARE | LOC: M PAIN 09:30 | DX: M47.816 Spondylosis without myelopathy or radiculopathy, lumbar region (principal); M47.817 Spondylosis without myelopathy or radiculopathy, lumbosacral region; I10 Essential (primary) hypertension; Z79.899 Other long term (current) drug therapy; Z88.0 Allergy status to penicillin; Z88.1 Allergy status to other antibiotic agents; Z88.2 Allergy status to sulfonamides; Z88.5 Allergy status to narcotic agent; Z88.8 Allergy status to other drugs, medicaments and biological substances; Z91.013 Allergy to seafood; Z91.041 Radiographic dye allergy status | CPT/HCPCS: G0463 ==

== ENCOUNTER → 2018-03-11 | Outpatient (CLI) | payer OTHER, MEDICARE | LOC: M PAIN 10:45 | DX: M47.816 Spondylosis without myelopathy or radiculopathy, lumbar region (principal); M47.817 Spondylosis without myelopathy or radiculopathy, lumbosacral region; I10 Essential (primary) hypertension; F32.9 Major depressive disorder, single episode, unspecified; K44.9 Diaphragmatic hernia without obstruction or gangrene; K21.9 Gastro-esophageal reflux disease without esophagitis; M32.9 Systemic lupus erythematosus, unspecified; J45.909 Unspecified asthma, uncomplicated; M16.0 Bilateral primary osteoarthritis of hip; E73.9 Lactose intolerance, unspecified; Z79.899 Other long term (current) drug therapy; Z88.0 Allergy status to penicillin; Z88.1 Allergy status to other antibiotic agents; Z88.2 Allergy status to sulfonamides; Z88.5 Allergy status to narcotic agent; Z88.6 Allergy status to analgesic agent; Z88.8 Allergy status to other drugs, medicaments and biological substances; Z91.013 Allergy to seafood | CPT/HCPCS: 84443; G0463 ==

== ENCOUNTER → 2018-03-11 | Outpatient (CLI) | payer OTHER, MEDICARE ==
[2018-03-11 17:03] LABS: ALBUMIN 3.9 GM/DL (3.2-5.2); ALBUMIN/GLOBULIN RATIO 1.26 (1.00-1.93); ALKALINE PHOSPHATASE 98 U/L (45-117); ALT/SGPT 22 U/L (12-78); ANION GAP 6 MEQ/L (8-16); AST/SGOT 15 U/L (7-37); BILIRUBIN,TOTAL 0.4 MG/DL (0.2-1.0); BLOOD UREA NITROGEN 19 MG/DL (7-18); CALCIUM LEVEL 8.9 MG/DL (8.8-10.2); CARBON DIOXIDE LEVEL 29 MEQ/L (21-32); CHLORIDE LEVEL 106 MEQ/L (98-107); CREATININE FOR GFR 0.87 MG/DL (0.55-1.30); FREE THYROXINE INDEX 3.8 % (1.3-4.8); GLOMERULAR FILTRATION RATE > 60.0 (>45); GLUCOSE, FASTING 89 MG/DL (70-100); POTASSIUM SERUM 4.1 MEQ/L (3.5-5.1); SODIUM LEVEL 141 MEQ/L (136-145); T UPTAKE 36 % (30-39); THYROID STIMULATING HORMONE 0.956 uIU/ML (0.358-3.740); THYROXINE (T4) 10.5 UG/DL (4.5-12.0)
[2018-03-11 17:42] LABS: BASO # 0.1 10^3/uL (0.0-0.2); EOS # 0.1 10^3/uL (0.0-0.50); HEMATOCRIT 39.8 % (36.0-47.0); HEMOGLOBIN 12.9 g/dl (12.0-15.5); IMMATURE GRANULOCYTE % 0.4 % (0-3.0); LYMPH # 2.5 10^3/uL (1.5-4.5); LYMPH % 31.6 % (24.0-44.0); MEAN CORPUSCULAR HEMOGLOBIN 30.4 pg (27.0-33.0); MEAN CORPUSCULAR HGB CONC 32.4 g/dl (32.0-36.5); MEAN CORPUSCULAR VOLUME 93.6 fl (80.0-96.0); MONO # 0.6 10^3/uL (0.0-0.8); MONO % 8.2 % (0.0-5.0); NEUTROPHILS # 4.5 10^3/uL (1.8-7.7); NEUTROPHILS % 57.8 % (36.0-66.0); PLATELET COUNT, AUTOMATED 368 10^3/uL (150-450); RED BLOOD COUNT 4.25 10^6/uL (4.00-5.40); RED CELL DISTRIBUTION WIDTH 14.3 % (11.5-14.5); WHITE BLOOD COUNT 7.8 10^3/uL (4.0-10.0)
== END ==
LOC: M WUC 13:34
DX: M47.816 Spondylosis without myelopathy or radiculopathy, lumbar region (principal); Z79.899 Other long term (current) drug therapy
CPT/HCPCS: 84443

== ENCOUNTER → 2018-04-08 | Outpatient (CLI) | payer OTHER, MEDICARE | LOC: M PAIN 15:15 | DX: M47.816 Spondylosis without myelopathy or radiculopathy, lumbar region (principal); M47.817 Spondylosis without myelopathy or radiculopathy, lumbosacral region; I10 Essential (primary) hypertension; F32.9 Major depressive disorder, single episode, unspecified; K44.9 Diaphragmatic hernia without obstruction or gangrene; M32.9 Systemic lupus erythematosus, unspecified; M19.90 Unspecified osteoarthritis, unspecified site; J45.909 Unspecified asthma, uncomplicated; Z79.899 Other long term (current) drug therapy; Z88.0 Allergy status to penicillin; Z88.1 Allergy status to other antibiotic agents; Z88.2 Allergy status to sulfonamides; Z88.5 Allergy status to narcotic agent; Z88.6 Allergy status to analgesic agent; Z88.8 Allergy status to other drugs, medicaments and biological substances; Z91.013 Allergy to seafood; Z91.041 Radiographic dye allergy status; Z86.14 Personal history of Methicillin resistant Staphylococcus aureus infection; Z96.643 Presence of artificial hip joint, bilateral | CPT/HCPCS: G0463 ==

== ENCOUNTER → 2018-06-09 | Outpatient (CLI) | payer OTHER, MEDICARE | LOC: M PAIN 14:30 | DX: M47.816 Spondylosis without myelopathy or radiculopathy, lumbar region (principal); M47.817 Spondylosis without myelopathy or radiculopathy, lumbosacral region; I10 Essential (primary) hypertension; F32.9 Major depressive disorder, single episode, unspecified; K21.9 Gastro-esophageal reflux disease without esophagitis; M19.90 Unspecified osteoarthritis, unspecified site; J45.909 Unspecified asthma, uncomplicated; K44.9 Diaphragmatic hernia without obstruction or gangrene; E73.9 Lactose intolerance, unspecified; Z79.899 Other long term (current) drug therapy; Z88.0 Allergy status to penicillin; Z88.1 Allergy status to other antibiotic agents; Z88.2 Allergy status to sulfonamides; Z88.5 Allergy status to narcotic agent; Z88.6 Allergy status to analgesic agent; Z88.8 Allergy status to other drugs, medicaments and biological substances; Z91.013 Allergy to seafood; Z91.041 Radiographic dye allergy status; Z87.39 Personal history of other diseases of the musculoskeletal system and connective tissue | CPT/HCPCS: G0463 ==

== ENCOUNTER → 2018-08-08 | Outpatient (CLI) | payer OTHER, MEDICARE ==
[~2018-08-08] MED LIST changes: -GABA-283; +GABA-845; -LISI2.5T3; +LISI2.5T5; +TRAZ-160; -TRAZ50TA11
--- NOTE | 2018-08-28 02:24 | ECWPNPC ---
PATIENT NAME: RICKY GOLDMAN : 1950 GENDER: FEMALE VISIT DATE: 08/08/2018 DISCHARGE DATE: 08/08/18 1527 VISIT LOCKED DATE TIME: PHYSICIAN: LIUDMILA HOLM RESOURCE: LIUDMILA HOLM REASON FOR APPOINTMENT 1. BACK HISTORY OF PRESENT ILLNESS DEPRESSION SCREENING: PHQ-2 IN LAST TWO WEEKS HAVE YOU BEEN BOTHERED BY LITTLE INTEREST OR PLEASURE IN DOING THINGSNO FEELING DOWN, DEPRESSED, OR HOPELESSNO HISTORY OF PRESENT ILLNESS: HERE FOR F/U OF CHRONIC LOW BACK PAIN.PAIN IS WORSE IN LOW BACK.DESCRIBES PAIN INTERMITTENT,SHARP AND SHOOTING.USING DILAUDID 2MG PRN AND SPARINGLY FOR SEVERE PAIN AND FINDS MEDICATION EFFECTIVE.DENIES SIDE EFFECTS.RATING PAIN VAS 3/10. PAIN THE PATIENT DESCRIBES THE PAIN... FALL RISK SCREENING: SCREENING :NO FALLS IN THE PAST YEAR CURRENT MEDICATIONS TAKING TRAZODONE 50 50MG TABLET 3 TABLETS ORAL BEFORE BEDTIME TAKING BUPROPION HCL ER (XL) 300 MG TABLET EXTENDED RELEASE 24 HOUR 1 TABLET IN THE MORNING ORALLY ONCE A DAY TAKING OMEPRAZOLE 20MG 20MG TABLET ORAL BID TAKING ONDANSETRON 8 MG TABLET DISPERSIBLE ORALLY PRN TAKING SENNA 8.6 MG CAPSULE 1-2 CAPSULES AT BEDTIME NEEDED ORALLY PRN TAKING DIPHENHYDRAMINE HCL 25 MG CAPSULE 1-2 CAPSULE NEEDED ORALLY EVERY 6 HRS PRN TAKING RESTASIS 0.05 % EMULSION 1 NULL INTO AFFECTED EYE OPHTHALMIC TWICE A DAY TAKING LEVSIN 0.125 MG TABLET 1 TABLET BEFORE MEALS NEEDED ORALLY EVERY 4 HRS PRN TAKING LISINOPRIL 5 MG TABLET 1 TABLET ORALLY ONCE A DAY TAKING BACLOFEN 10 MG TABLET 1 TABLET WITH FOOD OR MILK ORALLY BEFORE BEDTIME TAKING DILAUDID 2 MG TABLET 1 TABLET NEEDED ORALLY CODE D FOR CHRONIC PAIN DAY PRN FOR PAIN MDD1 TAKING GABAPENTIN 300 MG CAPSULE 2 CAPSULE ORALLY EVERY MORNING TAKING GABAPENTIN 800 MG TABLET 1 TABLET ORALLY BEFORE BED MDD=1 TAKING PRAZOSIN HCL 1 MG ORALLY ONCE A DAY TAKING CITALOPRAM HYDROBROMIDE 30MG ORALLY ONCE A DAY TAKING CETIRIZINE HCL 10 MG TABLET 1 TABLET ORALLY DAILY NOT-TAKING BUPROPION HCL 75 MG TABLET 1 TABLET ORALLY ONCE A DAY NOT-TAKING BUPROPION HCL 75 MG TABLET 1 TABLET ORALLY ONCE A DAY, NOTES: TAKES TOTAL OF 375MG NOT-TAKING MAGNESIUM SULFATE 1 TAB 400MGS ORAL DAILY NOT-TAKING DOXYCYCLINE HYCLATE 100 MG CAPSULE 1 CAPSULE ORALLY EVERY 12 HRS, NOTES: STARTED 05/21 NOT-TAKING PAZEO 0.7 % SOLUTION 1 DROP INTO AFFECTED EYE OPHTHALMIC ONCE A DAY MEDICATION LIST REVIEWED AND RECONCILED WITH THE PATIENT PAST MEDICAL HISTORY HTN DEPRESSION HIATLE HERNIA GERD PANCREATITUS HEARING LOSS IBS LUPUS RIGHT WRIST FX BILATERAL ANLKE FX OSTEOARTHRITIS ASTHMA MRSA RIGHT HIP PTSD ALLERGIES PENICILLIN (FOR ALLERGIES USE ONLY): ANAPHYLAXIS VANCOMYCIN HCL: ANAPHYLAXIS SULFA (FOR ALLERGY USE ONLY): ANAPHYLAXIS LACTOSE INTOLERANTE: GI DISTRESS REGLAN: HYPERTENSION CLINDAMYCIN HCL COMPAZINE CODEINE SULFATE: RESPIRATORY DISTRESS/CONFUSION VERSED: RESPIRATORY DISTRESS/CONFUSION CEPHALOSPORINS: RASH HIVES ERTHROMYCOIN: RASH HIVES KEFLEX: RASH HIVES NSAIDS: GI DISTRESS ASPIRIN: GI DISTRESS MORPHINE, NARCOTIC: AGGRESSION, CONFUSION AND AGGITATION: SIDE EFFECTS SHELL FISH AND IV CONTRAST: RASH: ALLERGY SURGICAL HISTORY COLON RESCECTION SP SPONTAEOUS RUPTURE 1975 HYSTERECTOMY 1988 TOTAL LT HIP 1991 TOTAL RT HIP 1989 OVARIAN CYSTECTOMY 1987 SOCIAL HISTORY GENERAL: TOBACCO USE ARE YOU A:NONSMOKER ALCOHOL SCREENING DID YOU HAVE A DRINK CONTAINING ALCOHOL IN THE PAST YEAR?YES HOW OFTEN DID YOU HAVE A DRINK CONTAINING ALCOHOL IN THE PAST YEAR?MONTHLY OR LESS (1 POINT) HOW MANY DRINKS DID YOU HAVE ON A TYPICAL DAY WHEN YOU WERE DRINKING IN THE PAST YEAR?1 OR 2 (0 POINTS) HOW OFTEN DID YOU HAVE SIX OR MORE DRINKS ON ONE OCCASION IN THE PAST YEAR?NEVER (0 POINTS) POINTS1 INTERPRETATIONNEGATIVE RECREATIONAL DRUG USE DRUG USE?NO CAFFEINE CAFFEINE USE?YES HOW OFTEN AND HOW MUCH? 3 CUPS COFFEE/DAY MORAVIAN [id number] EPISCOPALIAN LANGUAGE LANGUAGES SPOKEN:[place] LEARNING BARRIERS / SPECIAL NEEDS BARRIERS TO LEARNING?NO HEARING IMPAIRED?YES HEARING DEFICIT IN LEFT EAR. VISION IMPAIRED?YES : WEARS CORRECTIVE LENSES COGNITIVELY IMPAIRED?NO READINESS TO LEARN?YES PAIN CLINIC PFS, CLERGY, PUBLIC HEALTH REFERRALS PFS REFERRAL NEEDED?NO CLERGY REFERRAL NEEDED?NO PUBLIC HEALTH REFERRAL NEEDED?NO WAS THE PROVIDER NOTIFIED OF ANY PERTINENT INFO?NO HAS THE PATIENT BEEN EDUCATED REGARDING HIS/HER PLAN OF CARE?YES HAS THE PATIENT BEEN EDUCATED REGARDING PAIN, THE RISK FOR PAIN, THE IMPORTANCE OF EFFECTIVE PAIN MANAGEMENT, AND THE PAIN ASSESSMENT PROCESS?YES ADVANCE DIRECTIVE ADVANCE DIRECTIVE DISCUSSED WITH PATIENT:YES HEALTH CARE PROXY KATYA SCHAEFER SISTER [phone] REVIEWED 12/02/17 0913REVIEWED WITH PT 04/08/18 1550 LAS. HOSPITALIZATION/MAJOR DIAGNOSTIC PROCEDURE MRSA TO RIGHT HIP 2009 REVIEW OF SYSTEMS REVIEWED BY: PROVIDER: LIUDMILA SEQUEIRA . CONSTITUTIONAL: ANY CHANGE IN YOUR MEDICAL CONDITION? YES, SINUSITIS RESOLVING . CHILLS NO . FEVER NO . INFECTION: DO YOU HAVE NEW INFECTIONS? NO . DO YOU HAVE HISTORY OF MRSA? NO . MUSCULOSKELETAL: ANY NEW PATTERNS OF PAIN OR NUMBNESS? NO . GASTROENTEROLOGY: ANY NEW CHANGE IN BOWEL CONTROL? NO . GENITOURINARY: ANY NEW CHANGE IN BLADDER CONTROL? YES, PT STATES EVER SINCE SHE STARTED CITALOPRAM, BLADDER ISSUES AT NIGHT NOT MAKING IT TO THE TOILET ON TIME X 1 MONTH. RX ORDERED BY PSYCHIATRY, PT WILL TALK TO THEM ABOUT THIS . IS THERE A CHANCE YOU COULD BE ? NO . HEMATOLOGY/LYMPH: DO YOU TAKE ANY BLOOD THINNERS? (FOR EXAMPLE- COUMADIN, PLAVIX, AGGRENOX, PLATEL, PRADAXA, OR XARELTO) NO . WHEN WAS YOUR LAST DOSE? DATE: TIME: . NEUROLOGY: HAVE YOU FALLEN IN THE PAST 6 MONTHS? NO . ANY NEW EXTREMITY NUMBNESS OR WEAKNESS? NO . CARDIOLOGY: DO YOU HAVE A PACEMAKER OR DEFIBRILLATOR? NO . RESPIRATORY: HAVE YOU BEEN SICK IN THE PAST WEEK? YES, SINUSITIS . FEVER YES . FLU LIKE SYMPTOMS? NO . COUGH YES, NON-PRODUCTIVE, GETTING BETTER . INTEGUMENTARY: DO YOU HAVE ANY RASHES OR OPEN SORES? NO . ALLERGIC/IMMUNO: ARE YOU ALLERGIC TO SHELLFISH OR IV DYE? NO . ANY NEW ALLERGIES? NO . PSYCHIATRIC: DO YOU HAVE THOUGHTS OF HURTING YOURSELF OR SOMEONE ELSE? NO . ARE YOU ABUSED, NEGLECTED, OR IN AN UNSAFE ENVIRONMENT? NO . ENDOCRINOLOGY: ARE YOU DIABETIC? NO . OTHER: DO YOU NEED ANY PRESCRIPTIONS? NO . IF YES, PLEASE LIST: ____ . ANY NEW PROBLEMS WITH YOUR MEDICATIONS? NO . WHEN DID YOU LAST EAT? ____ . WHEN DID YOU LAST DRINK? ____ . WHAT DID YOU LAST DRINK? ____ . NAME OF PERSON DRIVING YOU HOME? ____ . DO YOU HAVE ANY OTHER QUESTIONS OR CONCERNS NO . VITAL SIGNS WT 168 LBS, HT 64 IN, BMI 28.83 INDEX, BP 126/67 MM HG, HR 63 /MIN, RR 16 /MIN, TEMP 97.2 F, OXYGEN SAT % 96%, NA INITIALS SC 14:53, REVIEWED BY: EM. EXAMINATION GENERAL EXAMINATION: GENERAL APPEARANCE:AWAKE,ALERT ,PLEAASANT . PSYCHAFFECT NORMAL . LUNGS:LUNG BARROW ARE CLEAR TO AUSCULTATION BILATERALLY. GOOD MOVEMENT OF AIR . HEART:S1, S2 IN A REGULAR RATE AND RHYTHM. NO SIGNIFICANT MURMURS, RUBS OR GALLOPS NOTED . ASSESSMENTS SPONDYLOSIS WITHOUT MYELOPATHY OR RADICULOPATHY, LUMBAR REGION - M47.816 (PRIMARY) SACROILIITIS, NOT ELSEWHERE CLASSIFIED - M46.1 TREATMENT SPONDYLOSIS WITHOUT MYELOPATHY OR RADICULOPATHY, LUMBAR REGION CONTINUE GABAPENTIN TABLET, 600 MG, 1 TABLET, ORALLY, Q12H BID, 30 DAY(S), 60, REFILLS 2 STOP GABAPENTIN CAPSULE, 300 MG, 2 CAPSULE, ORALLY, EVERY MORNING CONTINUE BACLOFEN TABLET, 10 MG, 1 TABLET WITH FOOD OR MILK, ORALLY, BEFORE BEDTIME, 30 DAY(S), 30, REFILLS 2 CONTINUE DILAUDID TABLET, 2 MG, 1 TABLET NEEDED, ORALLY CODE D FOR CHRONIC PAIN, DAY PRN FOR PAIN MDD1 NOTES: ISTOP REGISTRY REVIEWED AND DEMONSTRATES COMPLLIANCE. (REF # [id number] ) BRINGS IN MEDICATIONS WHICH IS APPROPRIATE FOR WHAT WAS DISPENSED. RECENT URINE TOXICOLOGY REVIEWED. NO UNAUTHORIZED MEDICATIONS. NO ILLICIT SUBSTANCES AND PRESCRIBED MEDICATIONS WERE PRESENT. , RISKS AND BENEFITS OF NARCOTIC/OPIOD MEDICATIONS WERE REVIEWED WITH PATIENT - THIS INCLUDES BUT IS NOT LIMITED TO RISK OF DEPENDANCE/DEVELOPMENT OF ADDICTION, MOOD DISTURBANCE AND DEPRESSION, OSTEOPOROSIS, HORMONAL AND LABIDAL CHANGES, RESPIRATORY DEPRESSION AND . PATIENT IS ADVISED NOT TO DRIVE OR DRINK ALCOHOL WHILE ON THESE MEDICATIONS. DISPOSITION & COMMUNICATION FOLLOW UP 2 MONTHS ELECTRONICALLY SIGNED BY FABBY SALAS ON 08/27/2018 AT 12:12 PM EST DISCLAIMER : THIS IS A VISIT SUMMARY EXTRACTED FROM THE [employer] CHART. IT IS NOT A COPY OF THE [employer] PROGRESS NOTE. VALERIE
== END ==
LOC: M PAIN 14:15
PROVIDERS: ATTEND Nurse Practitioner Family
DX: M47.816 Spondylosis without myelopathy or radiculopathy, lumbar region (principal); M46.1 Sacroiliitis, not elsewhere classified; G89.29 Other chronic pain; I10 Essential (primary) hypertension; K21.9 Gastro-esophageal reflux disease without esophagitis; K44.9 Diaphragmatic hernia without obstruction or gangrene; J45.909 Unspecified asthma, uncomplicated; F32.9 Major depressive disorder, single episode, unspecified; M19.90 Unspecified osteoarthritis, unspecified site; F43.10 Post-traumatic stress disorder, unspecified; E73.9 Lactose intolerance, unspecified; Z79.899 Other long term (current) drug therapy; Z88.0 Allergy status to penicillin; Z88.1 Allergy status to other antibiotic agents; Z88.2 Allergy status to sulfonamides; Z88.5 Allergy status to narcotic agent; Z88.6 Allergy status to analgesic agent; Z88.8 Allergy status to other drugs, medicaments and biological substances; Z91.013 Allergy to seafood; Z96.643 Presence of artificial hip joint, bilateral; Z87.39 Personal history of other diseases of the musculoskeletal system and connective tissue; Z86.14 Personal history of Methicillin resistant Staphylococcus aureus infection

== ENCOUNTER → 2018-10-28 | Outpatient (CLI) | payer MEDICARE ==
--- NOTE | 2018-11-11 02:33 | ECWPNPC ---
PATIENT NAME: RICKY GOLDMAN : 1950 GENDER: FEMALE VISIT DATE: 10/28/2018 DISCHARGE DATE: 10/28/18 1000 VISIT LOCKED DATE TIME: PHYSICIAN: LIUDMILA HOLM RESOURCE: LIUDMILA HOLM REASON FOR APPOINTMENT 1. BACK HISTORY OF PRESENT ILLNESS HISTORY OF PRESENT ILLNESS: HERE FOR F/U OF CHRONIC LOW BACK PAIN.DESCRIBES PAIN CONSTANT AND SHARP.RATING PAIN VAS 4/10.PAIN IS WORSE WITH INCREASED ACTIVITY.REPORTING INCREASE IN LOW BACK PAIN OVER THE PAST 2 WEEKS . PAIN THE PATIENT DESCRIBES THE PAIN... FALL RISK SCREENING: SCREENING : NO FALLS IN THE PAST YEAR. CURRENT MEDICATIONS TAKING TRAZODONE 50 50MG TABLET 3 TABLETS ORAL BEFORE BEDTIME TAKING BUPROPION HCL ER (XL) 300 MG TABLET EXTENDED RELEASE 24 HOUR 1 TABLET IN THE MORNING ORALLY ONCE A DAY TAKING OMEPRAZOLE 20MG 20MG TABLET ORAL BID TAKING ONDANSETRON 8 MG TABLET DISPERSIBLE ORALLY PRN TAKING SENNA 8.6 MG CAPSULE 1-2 CAPSULES AT BEDTIME NEEDED ORALLY PRN TAKING DIPHENHYDRAMINE HCL 25 MG CAPSULE 1-2 CAPSULE NEEDED ORALLY EVERY 6 HRS PRN TAKING RESTASIS 0.05 % EMULSION 1 NULL INTO AFFECTED EYE OPHTHALMIC TWICE A DAY TAKING LEVSIN 0.125 MG TABLET 1 TABLET BEFORE MEALS NEEDED ORALLY EVERY 4 HRS PRN TAKING LISINOPRIL 5 MG TABLET 1 TABLET ORALLY ONCE A DAY TAKING PRAZOSIN HCL 1 MG ORALLY ONCE A DAY TAKING CITALOPRAM HYDROBROMIDE 30MG ORALLY ONCE A DAY TAKING CETIRIZINE HCL 10 MG TABLET 1 TABLET ORALLY DAILY TAKING GABAPENTIN 600 MG TABLET 1 TABLET ORALLY Q12H BID TAKING BACLOFEN 10 MG TABLET 1 TABLET WITH FOOD OR MILK ORALLY BEFORE BEDTIME TAKING DILAUDID 2 MG TABLET 1 TABLET NEEDED ORALLY CODE D FOR CHRONIC PAIN DAY PRN FOR PAIN MDD1 NOT-TAKING BUPROPION HCL 75 MG TABLET 1 TABLET ORALLY ONCE A DAY NOT-TAKING BUPROPION HCL 75 MG TABLET 1 TABLET ORALLY ONCE A DAY, NOTES: TAKES TOTAL OF 375MG NOT-TAKING MAGNESIUM SULFATE 1 TAB 400MGS ORAL DAILY NOT-TAKING DOXYCYCLINE HYCLATE 100 MG CAPSULE 1 CAPSULE ORALLY EVERY 12 HRS, NOTES: STARTED 05/21 NOT-TAKING PAZEO 0.7 % SOLUTION 1 DROP INTO AFFECTED EYE OPHTHALMIC ONCE A DAY MEDICATION LIST REVIEWED AND RECONCILED WITH THE PATIENT PAST MEDICAL HISTORY HTN DEPRESSION HIATLE HERNIA GERD PANCREATITUS HEARING LOSS IBS LUPUS RIGHT WRIST FX BILATERAL ANLKE FX OSTEOARTHRITIS ASTHMA MRSA RIGHT HIP PTSD OSTEOPENIA ALLERGIES PENICILLIN (FOR ALLERGIES USE ONLY): ANAPHYLAXIS VANCOMYCIN HCL: ANAPHYLAXIS SULFA (FOR ALLERGY USE ONLY): ANAPHYLAXIS LACTOSE INTOLERANTE: GI DISTRESS REGLAN: HYPERTENSION CLINDAMYCIN HCL COMPAZINE CODEINE SULFATE: RESPIRATORY DISTRESS/CONFUSION VERSED: RESPIRATORY DISTRESS/CONFUSION CEPHALOSPORINS: RASH HIVES ERTHROMYCOIN: RASH HIVES KEFLEX: RASH HIVES NSAIDS: GI DISTRESS ASPIRIN: GI DISTRESS MORPHINE, NARCOTIC: AGGRESSION, CONFUSION AND AGGITATION: SIDE EFFECTS SHELL FISH AND IV CONTRAST: RASH: ALLERGY SURGICAL HISTORY COLON RESCECTION SP SPONTAEOUS RUPTURE 1975 HYSTERECTOMY 1988 TOTAL LT HIP 1991 TOTAL RT HIP 1989 OVARIAN CYSTECTOMY 1987 FAMILY HISTORY FATHER: MOTHER: 3 SISTER(S) . 3DAUGHTER(S) . 1 DAUGHTER DECEASED1 DAUGHTER LUPUS, FIBROMYALGA1 DAUGHTER ASTHMA, GLUTEN INTOLERANTSISTERS HTN, 1 COPD, OSTEOARTHRITIS. SOCIAL HISTORY GENERAL: TOBACCO USE ARE YOU A:NONSMOKER ALCOHOL SCREENING DID YOU HAVE A DRINK CONTAINING ALCOHOL IN THE PAST YEAR?YES HOW OFTEN DID YOU HAVE A DRINK CONTAINING ALCOHOL IN THE PAST YEAR?MONTHLY OR LESS (1 POINT) HOW MANY DRINKS DID YOU HAVE ON A TYPICAL DAY WHEN YOU WERE DRINKING IN THE PAST YEAR?1 OR 2 (0 POINTS) HOW OFTEN DID YOU HAVE SIX OR MORE DRINKS ON ONE OCCASION IN THE PAST YEAR?NEVER (0 POINTS) POINTS1 INTERPRETATIONNEGATIVE RECREATIONAL DRUG USE DRUG USE?NO CAFFEINE CAFFEINE USE?YES HOW OFTEN AND HOW MUCH? 3 CUPS COFFEE/DAY MORAVIAN [id number] [place] LANGUAGE LANGUAGES SPOKEN:UPPER SORBIAN LEARNING BARRIERS / SPECIAL NEEDS BARRIERS TO LEARNING?NO HEARING IMPAIRED?YES HEARING DEFICIT IN LEFT EAR. VISION IMPAIRED?YES : WEARS CORRECTIVE LENSES COGNITIVELY IMPAIRED?NO READINESS TO LEARN?YES PAIN CLINIC PFS, CLERGY, PUBLIC HEALTH REFERRALS PFS REFERRAL NEEDED?NO CLERGY REFERRAL NEEDED?NO PUBLIC HEALTH REFERRAL NEEDED?NO WAS THE PROVIDER NOTIFIED OF ANY PERTINENT INFO?NO HAS THE PATIENT BEEN EDUCATED REGARDING HIS/HER PLAN OF CARE?YES HAS THE PATIENT BEEN EDUCATED REGARDING PAIN, THE RISK FOR PAIN, THE IMPORTANCE OF EFFECTIVE PAIN MANAGEMENT, AND THE PAIN ASSESSMENT PROCESS?YES ADVANCE DIRECTIVE ADVANCE DIRECTIVE DISCUSSED WITH PATIENT:YES HEALTH CARE PROXY KATYA SCHAEFER SISTER [phone] REVIEWED 12/02/17 0913REVIEWED WITH PT 04/08/18 9299 LAS. HOSPITALIZATION/MAJOR DIAGNOSTIC PROCEDURE MRSA TO RIGHT HIP 2009 REVIEW OF SYSTEMS REVIEWED BY: PROVIDER: LIUDMILA SEQUEIRA . CONSTITUTIONAL: ANY CHANGE IN YOUR MEDICAL CONDITION? YES, PT SENT TO [facility]ANCE [facility] FOR BREATHING ISSUES APPT NOT SET YET . CHILLS NO . FEVER NO . INFECTION: DO YOU HAVE NEW INFECTIONS? YES, BRONCHITIS FOR MONTHS, NOT ON ABX . DO YOU HAVE HISTORY OF MRSA? NO . MUSCULOSKELETAL: ANY NEW PATTERNS OF PAIN OR NUMBNESS? YES, LEFT LEG PAIN . GASTROENTEROLOGY: ANY NEW CHANGE IN BOWEL CONTROL? NO . GENITOURINARY: ANY NEW CHANGE IN BLADDER CONTROL? YES, BLADDER LEAKAGE AT NIGHT SINCE PLACED ON MEDS FOR DEPRESSION AND PTSD . IS THERE A CHANCE YOU COULD BE ? NO . HEMATOLOGY/LYMPH: DO YOU TAKE ANY BLOOD THINNERS? (FOR EXAMPLE- COUMADIN, PLAVIX, AGGRENOX, PLATEL, PRADAXA, OR XARELTO) NO . WHEN WAS YOUR LAST DOSE? DATE: TIME: . NEUROLOGY: HAVE YOU FALLEN IN THE PAST 12 MONTHS? YES, FELL LAST WEEK FROM LOSS OF BALANCE ON ICE, PT DENIES INJURIES . ANY NEW EXTREMITY NUMBNESS OR WEAKNESS? YES, LEFT LEG PAIN . CARDIOLOGY: DO YOU HAVE A PACEMAKER OR DEFIBRILLATOR? NO . RESPIRATORY: HAVE YOU BEEN SICK IN THE PAST WEEK? YES, FEVERISH NO OTHER S/S . FEVER YES, LOW GRADE . FLU LIKE SYMPTOMS? NO . COUGH NO . INTEGUMENTARY: DO YOU HAVE ANY RASHES OR OPEN SORES? NO . ALLERGIC/IMMUNO: ARE YOU ALLERGIC TO IV DYE? NO . ANY NEW ALLERGIES? NO . PSYCHIATRIC: DO YOU HAVE THOUGHTS OF HURTING YOURSELF OR SOMEONE ELSE? NO . ARE YOU ABUSED, NEGLECTED, OR IN AN UNSAFE ENVIRONMENT? NO . ENDOCRINOLOGY: ARE YOU DIABETIC? NO . OTHER: DO YOU NEED ANY PRESCRIPTIONS? YES, BACLOFEN . IF YES, PLEASE LIST: ____ . ANY NEW PROBLEMS WITH YOUR MEDICATIONS? NO . WHEN DID YOU LAST EAT? ____ . WHEN DID YOU LAST DRINK? ____ . WHAT DID YOU LAST DRINK? ____ . NAME OF PERSON DRIVING YOU HOME? ____ . DO YOU HAVE ANY OTHER QUESTIONS OR CONCERNS NO . VITAL SIGNS WT 164 LBS, HT 64 IN, BMI 28.15 INDEX, BP 142/88 MM HG, HR 84 /MIN, RR 18 /MIN, TEMP 96.6 F, OXYGEN SAT % 97%, NA INITIALS SC 09:19, REVIEWED BY: EM. EXAMINATION GENERAL EXAMINATION: GENERAL APPEARANCE:AWAKE,ALERT ,PLEAASANT . PSYCHAFFECT NORMAL . LUNGS:LUNG BARROW ARE CLEAR TO AUSCULTATION BILATERALLY. GOOD MOVEMENT OF AIR . HEART:S1, S2 IN A REGULAR RATE AND RHYTHM. NO SIGNIFICANT MURMURS, RUBS OR GALLOPS NOTED . ASSESSMENTS SPONDYLOSIS WITHOUT MYELOPATHY OR RADICULOPATHY, LUMBAR REGION - M47.816 (PRIMARY) SACROILIITIS, NOT ELSEWHERE CLASSIFIED - M46.1 TREATMENT SPONDYLOSIS WITHOUT MYELOPATHY OR RADICULOPATHY, LUMBAR REGION REFILL GABAPENTIN TABLET, 600 MG, 1 TABLET, ORALLY, Q12H BID, 30 DAY(S), 60, REFILLS 2 REFILL BACLOFEN TABLET, 10 MG, 1 TABLET WITH FOOD OR MILK, ORALLY, BEFORE BEDTIME, 30 DAY(S), 30, REFILLS 2 REFILL DILAUDID TABLET, 2 MG, 1 TABLET NEEDED, ORALLY CODE D FOR CHRONIC PAIN, DAY PRN FOR PAIN MDD1, 60 DAYS, 20, REFILLS 0 NOTES: ISTOP REGISTRY REVIEWED AND DEMONSTRATES COMPLLIANCE. BRINGS IN MEDICATIONS WHICH IS APPROPRIATE FOR WHAT WAS DISPENSED. RECENT URINE TOXICOLOGY REVIEWED. NO UNAUTHORIZED MEDICATIONS. NO ILLICIT SUBSTANCES AND PRESCRIBED MEDICATIONS WERE PRESENT. , RISKS AND BENEFITS OF NARCOTIC/OPIOD MEDICATIONS WERE REVIEWED WITH PATIENT - THIS INCLUDES BUT IS NOT LIMITED TO RISK OF DEPENDANCE/DEVELOPMENT OF ADDICTION, MOOD DISTURBANCE AND DEPRESSION, OSTEOPOROSIS, HORMONAL AND LABIDAL CHANGES, RESPIRATORY DEPRESSION AND . PATIENT IS ADVISED NOT TO DRIVE OR DRINK ALCOHOL WHILE ON THESE MEDICATIONS. PROCEDURE CODES FA211 ESTABILISHED PATIENT [facility] CHARGE DISPOSITION & COMMUNICATION FOLLOW UP 3 MONTHS ELECTRONICALLY SIGNED BY FABBY SALAS ON 11/10/2018 AT 04:13 PM EDT DISCLAIMER : THIS IS A VISIT SUMMARY EXTRACTED FROM THE [employer] CHART. IT IS NOT A COPY OF THE [employer] PROGRESS NOTE. STEFANIED
== END ==
LOC: M PAIN 09:15
PROVIDERS: ATTEND Nurse Practitioner Family
DX: M47.816 Spondylosis without myelopathy or radiculopathy, lumbar region (principal); M46.1 Sacroiliitis, not elsewhere classified; G89.29 Other chronic pain; I10 Essential (primary) hypertension; F32.9 Major depressive disorder, single episode, unspecified; K21.9 Gastro-esophageal reflux disease without esophagitis; F43.10 Post-traumatic stress disorder, unspecified; M85.80 Other specified disorders of bone density and structure, unspecified site; J45.909 Unspecified asthma, uncomplicated; M19.90 Unspecified osteoarthritis, unspecified site; Z79.899 Other long term (current) drug therapy; Z88.0 Allergy status to penicillin; Z88.1 Allergy status to other antibiotic agents; Z88.2 Allergy status to sulfonamides; Z88.5 Allergy status to narcotic agent; Z88.6 Allergy status to analgesic agent; Z88.8 Allergy status to other drugs, medicaments and biological substances; Z91.013 Allergy to seafood; Z91.041 Radiographic dye allergy status; Z91.011 Allergy to milk products; Z87.39 Personal history of other diseases of the musculoskeletal system and connective tissue; Z96.643 Presence of artificial hip joint, bilateral

== ENCOUNTER → 2018-11-28 | Outpatient (REF) | payer MEDICARE ==
[2018-11-28 13:46] LABS: BASO # 0.1 10^3/uL (0.0-0.2); EOS # 0.1 10^3/uL (0.0-0.50); EOS % 1.3 % (0.0-3.0); LYMPH # 1.7 10^3/uL (1.5-4.5); LYMPH % 27.4 % (24.0-44.0); MEAN CORPUSCULAR HEMOGLOBIN 30.7 pg (27.0-33.0); MEAN CORPUSCULAR HGB CONC 32.5 g/dl (32.0-36.5); MEAN CORPUSCULAR VOLUME 94.6 fl (80.0-96.0); MONO # 0.6 10^3/uL (0.0-0.8); MONO % 9.1 % (0.0-5.0); NEUTROPHILS # 3.8 10^3/uL (1.8-7.7); NEUTROPHILS % 60.7 % (36.0-66.0); PLATELET COUNT, AUTOMATED 348 10^3/uL (150-450); RED BLOOD COUNT 4.23 10^6/uL (4.00-5.40); WHITE BLOOD COUNT 6.2 10^3/uL (4.0-10.0)
[2018-12-03 00:06] LABS: ANCA-ATYPICAL <1:20 titer (Neg:<1:20); ASPERGILLUS FLAVUS ABY Negative (Neg:<1:1); ASPERGILLUS FUMIGATUS ABY Negative (Neg:<1:1); ASPERGILLUS NIGER ABY Negative (Neg:<1:1); CYTOPLASMIC NEUTROP AB ANCA-C <1:20 titer (Neg:<1:20); PERINUCLEAR AB ANCA-P <1:20 titer (Neg:<1:20)
== END ==
LOC: M LAB REF 13:04
PROVIDERS: ATTEND Internal Medicine Pulmonary Disease
DX: J45.50 Severe persistent asthma, uncomplicated (principal)

== ENCOUNTER 2018-12-12 17:47 | Emergency (ER) | payer MEDICARE ==
[~2018-12-12] VITALS: Ht 162.6 cm; Wt 74.5 kg
[~2018-12-12 17:47] MED LIST changes: -/PANT40TA PO; +LISI-1046; -LISI2.5T5; -MIRA255PW PO; +POLY1POW4 PO; +PROT1TAB2 PO
[2018-12-12] MEDS ORDERED: HYDR200T3 (18:39)
[2018-12-12] MEDS ORDERED: ALBU83IN (18:39)
[2018-12-12] MEDS ORDERED: CITA20TA6 (18:39)
[2018-12-12] MEDS ORDERED: BACL10TA2 (18:39)
[2018-12-12] MEDS ORDERED: BREO1INH3 (18:39)
[2018-12-12] MEDS ORDERED: PRAZ1CAP (18:39)
--- NOTE | 2018-12-12 19:15 | REP ---
Left femur: Four views. History: Trauma. Kicked by a horse. Inability to bear weight left leg. No comparison left femur views. Findings: A prosthetic left hip is noted and appears normally aligned. There is no evidence of a left pelvic or femur fracture. There is some heterotopic bone formation medial to the prosthesis. Diffuse osteopenia is noted. Impression: No fracture noted. Prosthetic left hip. Diffuse osteopenia. Electronically Signed by Nba Uribe MD 12/12/2018 08:16 P
--- NOTE | 2018-12-12 19:16 | REP ---
Left tib-fib series: Four views. History: Inability to bear weight after having been kicked by horse. Findings: Four views of the left tibia and fibula demonstrate diffuse osteopenia. There are two metallic orthopedic screws in the distal fibula. No acute fracture or subluxation is seen. There is some fragmentation adjacent to the anterior tibial apophysis however this is old appearing. Impression: No fracture seen. Two screws in the distal fibula. Diffuse osteopenia. Electronically Signed by Nba Uribe MD 12/12/2018 08:16 P
[2018-12-12 19:42] VITALS: BP 150/70
== END 2018-12-12 19:44 | disposition home or self-care (01) ==
LOC: M ED 17:47
DX: S80.12XA Contusion of left lower leg, initial encounter (principal); W55.12XA Struck by horse, initial encounter; Y92.89 Other specified places as the place of occurrence of the external cause; Y99.0 Civilian activity done for income or pay; J44.9 Chronic obstructive pulmonary disease, unspecified; J45.909 Unspecified asthma, uncomplicated; F41.9 Anxiety disorder, unspecified; M32.9 Systemic lupus erythematosus, unspecified; Z79.899 Other long term (current) drug therapy; Z88.1 Allergy status to other antibiotic agents; Z88.2 Allergy status to sulfonamides; Z88.5 Allergy status to narcotic agent; Z88.8 Allergy status to other drugs, medicaments and biological substances

== ENCOUNTER → 2018-12-26 | Outpatient (CLI) | payer MEDICARE ==
[~2018-12-26] MED LIST changes: +ALBU83IN; +BACL10TA2; +BREO1INH3; +CITA20TA6; +HYDR200T3; +PRAZ1CAP
[2018-12-26 17:20] LABS: BASO # 0.1 10^3/uL (0.0-0.2); EOS # 0.2 10^3/uL (0.0-0.50); EOS % 2.7 % (0.0-3.0); HEMATOCRIT 37.6 % (36.0-47.0); HEMOGLOBIN 12.1 g/dl (12.0-15.5); LYMPH # 1.9 10^3/uL (1.5-4.5); MEAN CORPUSCULAR HEMOGLOBIN 30.6 pg (27.0-33.0); MEAN CORPUSCULAR HGB CONC 32.2 g/dl (32.0-36.5); MEAN CORPUSCULAR VOLUME 94.9 fl (80.0-96.0); MONO # 0.7 10^3/uL (0.0-0.8); MONO % 11.2 % (0.0-5.0); NEUTROPHILS % 51.8 % (36.0-66.0); PLATELET COUNT, AUTOMATED 311 10^3/uL (150-450); RED BLOOD COUNT 3.96 10^6/uL (4.00-5.40); WHITE BLOOD COUNT 5.8 10^3/uL (4.0-10.0)
== END ==
LOC: M WUC 14:38
PROVIDERS: ATTEND Physician Assistant
DX: L30.9 Dermatitis, unspecified (principal)

== ENCOUNTER → 2019-01-09 | Outpatient (CLI) | payer MEDICARE ==
--- NOTE | 2019-01-09 07:58 | REP ---
Clinical: Severe asthma. Technique: Axial noncontrast images from the thoracic inlet to the upper abdomen with coronal and sagittal re-formations. Comparison: 10/27/2016. Findings: Lung yoon are relatively well aerated and symmetric. Minimal chronic interstitial changes are appreciated primarily involving the lingula and left base. No acute consolidation, nodule or mass lesion. Tracheobronchial tree is patent and without significant peribronchial thickening or obvious abnormality. No effusion. No pneumothorax. No obvious adenopathy. Mediastinum demonstrates relatively normal thoracic aorta, pulmonary vasculature and heart/pericardium. Thyroid gland is grossly normal. The osseous structures demonstrate age-related changes without focal abnormality. Limited upper abdomen demonstrates normal bilateral adrenal glands. Impression: Minimal chronic changes. No acute mediastinal or pleuroparenchymal process. Electronically Signed by Anatoliy Whaley MD 01/09/2019 07:49 A
== END ==
LOC: M RAD 06:55
PROVIDERS: ATTEND Internal Medicine Pulmonary Disease
DX: J45.50 Severe persistent asthma, uncomplicated (principal)

== ENCOUNTER → 2019-02-02 | Outpatient (CLI) | payer MEDICARE ==
[~2019-02-02] MED LIST changes: -TRAZ-160; +TRAZ-252
== END ==
LOC: M PAIN 08:30
PROVIDERS: ATTEND Nurse Practitioner Family
DX: M47.816 Spondylosis without myelopathy or radiculopathy, lumbar region (principal); M46.1 Sacroiliitis, not elsewhere classified; G89.29 Other chronic pain; I10 Essential (primary) hypertension; Z86.59 Personal history of other mental and behavioral disorders; K21.9 Gastro-esophageal reflux disease without esophagitis; M19.90 Unspecified osteoarthritis, unspecified site; J44.9 Chronic obstructive pulmonary disease, unspecified; Z86.14 Personal history of Methicillin resistant Staphylococcus aureus infection; M85.88 Other specified disorders of bone density and structure, other site; Z88.0 Allergy status to penicillin; Z88.1 Allergy status to other antibiotic agents; Z88.2 Allergy status to sulfonamides; Z88.5 Allergy status to narcotic agent; Z88.6 Allergy status to analgesic agent; Z88.8 Allergy status to other drugs, medicaments and biological substances; Z91.011 Allergy to milk products; Z91.013 Allergy to seafood; Z79.51 Long term (current) use of inhaled steroids; Z79.899 Other long term (current) drug therapy

== ENCOUNTER 2019-05-05 16:05 | Emergency (ER) | payer MEDICARE ==
[~2019-05-05] VITALS: Ht 162.6 cm; Wt 72.7 kg
[~2019-05-05 16:05] MED LIST changes: -OMEP20CA3; +OMEP20CA4
[2019-05-05] MEDS ORDERED: MORPHINE 2 MG/ML 1ML SYRINGE (J2270) IV PRN (17:00)
[2019-05-05] MEDS ORDERED: NS 1,000 ML IV ONE (17:00)
--- NOTE | 2019-05-05 17:11 | REPVR ---
EXAM: CT Head Without Contrast EXAM DATE/TIME: 05/05/2019 4:57 PM CLINICAL HISTORY: 69 years old, female; Pain; Other: Tr; Additional info: Trauma TECHNIQUE: Imaging protocol: Computed tomography of the head without contrast. Radiation optimization: All CT scans at this facility use at least one of these dose optimization techniques: automated exposure control; mA and/or kV adjustment per patient size (includes targeted exams where dose is matched to clinical indication); or iterative reconstruction. COMPARISON: CT Head without contrast 10/27/2016 4:56 PM FINDINGS: Brain: Normal. No hemorrhage. Unremarkable white matter. No mass effect. Ventricles: Normal. No ventriculomegaly. Bones/joints: Unremarkable. No acute fracture. Sinuses: Visualized sinuses are unremarkable. No fluid levels. Mastoid air cells: Visualized mastoid air cells are well aerated. Soft tissues: Unremarkable. IMPRESSION: No acute intracranial abnormality. No interval change in comparison to 10/27/2016. Electronically signed by: Yash Jackson On 05/05/2019 17:11:01 PM
--- NOTE | 2019-05-05 17:17 | REPVR ---
EXAM: CT Cervical Spine Without Contrast EXAM DATE/TIME: 05/05/2019 4:57 PM CLINICAL HISTORY: 69 years old, female; Pain; Other: Tr; Additional info: Trauma TECHNIQUE: Imaging protocol: Computed tomography images of the cervical spine without contrast. Radiation optimization: All CT scans at this facility use at least one of these dose optimization techniques: automated exposure control; mA and/or kV adjustment per patient size (includes targeted exams where dose is matched to clinical indication); or iterative reconstruction. COMPARISON: CT Spine,cervical w/o contrast 10/27/2016 4:56 PM FINDINGS: Vertebrae: Mild straightening of cervical lordosis unchanged in comparison to the prior examination. Discs/Spinal canal/Neural foramina: Moderate to advanced degenerative spondylosis most pronounced in the mid and lower cervical spine with disc space narrowing at C4-5 through C6-7 with prominent intervertebral osteophytes. Marked degenerative changes at the atlantoaxial joint. Moderate to severe bilateral foraminal stenosis at C3, severe bilateral foraminal stenosis at C4, severe bilateral foraminal stenosis at C5, severe left-sided foraminal stenosis and moderate to severe right-sided foraminal stenosis at C6 secondary to uncinate joint hypertrophic changes. Multilevel bilateral facet joint arthropathy from C3-C7. Soft tissues: Unremarkable. Lungs: Lung apices are normal. IMPRESSION: Degenerative spondylosis stable in appearance in comparison to the prior examination of 2017. No acute findings. Electronically signed by: Yash Jacskon On 05/05/2019 17:17:47 PM
[2019-05-05 17:35] LABS: BASO # 0.1 10^3/uL (0.0-0.2); BASO % 0.8 % (0.0-1.0); EOS # 0.1 10^3/uL (0.0-0.5); EOS % 1.9 % (0.0-3.0); HEMATOCRIT 37.6 % (36.0-47.0); HEMOGLOBIN 12.2 g/dl (12.0-15.5); LYMPH # 1.9 10^3/uL (1.5-5.0); LYMPH % 31.1 % (24.0-44.0); MEAN CORPUSCULAR HEMOGLOBIN 30.4 pg (27.0-33.0); MEAN CORPUSCULAR HGB CONC 32.4 g/dl (32.0-36.5); MEAN CORPUSCULAR VOLUME 93.8 fl (80.0-96.0); MONO # 0.7 10^3/uL (0.0-0.8); MONO % 10.7 % (0.0-5.0); NEUTROPHILS # 3.4 10^3/uL (1.5-8.5); NEUTROPHILS % 55.3 % (36.0-66.0); PLATELET COUNT, AUTOMATED 293 10^3/uL (150-450); RED BLOOD COUNT 4.01 10^6/uL (4.00-5.40); WHITE BLOOD COUNT 6.2 10^3/uL (4.0-10.0)
[2019-05-05 17:51] LABS: INR 1.01
[2019-05-05 17:52] LABS: PARTIAL THROMBOPLASTIN TIME 32.5 SECONDS (25.0-38.4)
[2019-05-05 18:03] LABS: AMPHETAMINES LEVEL URINE NEGATIVE (NEGATIVE); BARBITURATES URINE NEGATIVE (NEGATIVE); BENZODIAZEPINES URINE NEGATIVE (NEGATIVE); CANNABINOIDS URINE NEGATIVE (NEGATIVE); COCAINE METABOLITE URINE NEGATIVE (NEGATIVE); METHADONE URINE NEGATIVE (NEGATIVE); OPIATES URINE NEGATIVE (NEGATIVE); PHENCYCLIDINE URINE NEGATIVE (NEGATIVE)
[2019-05-05 18:06] LABS: ALBUMIN 3.5 GM/DL (3.2-5.2); ALT/SGPT 25 U/L (12-78); AMYLASE 55 U/L (25-115); BILIRUBIN,DIRECT < 0.1 MG/DL (0.0-0.2); BILIRUBIN,TOTAL 0.3 MG/DL (0.2-1.0); BLOOD UREA NITROGEN 17 MG/DL (7-18); CARBON DIOXIDE LEVEL 27 MEQ/L (21-32); CHLORIDE LEVEL 107 MEQ/L (98-107); CK-MB VALUE MASS 4.1 NG/ML (<3.6); CPK CREATINE PHOSPHOKINASE 165 U/L (26-192); CREATININE FOR GFR 1.13 MG/DL (0.55-1.30); ETHYL ALCOHOL (ETHANOL) < 0.003 % (0.000-0.010); GLOMERULAR FILTRATION RATE 50.8 (>45); GLUCOSE, FASTING 90 MG/DL (70-100); LIPASE 154 U/L (73-393); MB/CK RELATIVE INDEX 2.48 (< OR =4); POTASSIUM SERUM 3.7 MEQ/L (3.5-5.1); SODIUM LEVEL 142 MEQ/L (136-145); TOTAL PROTEIN 6.3 GM/DL (6.4-8.2); TROPONIN I < 0.02 NG/ML (< 0.10)
[2019-05-05] MEDS ORDERED: ISOVUE-370 76% 100ML VIAL (Q9967) As Ordered ONE (18:10)
--- NOTE | 2019-05-05 18:47 | REPVR ---
EXAM: CT Abdomen and Pelvis With Contrast EXAM DATE/TIME: 05/05/2019 6:20 PM CLINICAL HISTORY: 69 years old, female; Pain; Other: Tr; Additional info: Trauma TECHNIQUE: Imaging protocol: Computed tomography of the abdomen and pelvis with intravenous contrast. Radiation optimization: All CT scans at this facility use at least one of these dose optimization techniques: automated exposure control; mA and/or kV adjustment per patient size (includes targeted exams where dose is matched to clinical indication); or iterative reconstruction. Contrast material: ISOVUE 370; Contrast volume: 100 ml; Contrast route: IV; COMPARISON: CT ABD PELVIS WITH CONTRAST 10/27/2016 5:00 PM FINDINGS: Lungs: Bibasilar atelectasis. Mediastinum: A small hiatal hernia is present. Liver: There is a diffuse decrease in hepatic parenchymal density, consistent with fatty infiltration. Gallbladder and bile ducts: Normal. No calcified stones. No ductal dilation. Pancreas: Normal. No ductal dilation. Spleen: Normal. No splenomegaly. Adrenals: Normal. No mass. Kidneys and ureters: Normal. No hydronephrosis. Stomach and bowel: Moderate diverticulosis is present in the distal colon. No diverticulitis. Appendix: No evidence of appendicitis. Intraperitoneal space: Unremarkable. No free air. No significant fluid collection. Vasculature: The aorta demonstrates mild atherosclerotic calcification. Lymph nodes: Mild bilateral hydroureteronephrosis, right greater than left may be related to gross bladder distention. Bladder: Distended urinary bladder. Clinical correlation to exclude bladder outlet obstruction and etiology suggested. Reproductive: Hysterectomy. Otherwise unremarkable as visualized. Bones/joints: Old rib fractures right fifth and sixth ribs. Schmorl's node at the superior endplate of L3 stable in appearance. Severe central spinal stenosis at L3-4, L4-5 and L5-S1. Marked disc space narrowing L5-S1. Status post bilateral total hip replacements. Soft tissues: Upper abdominal mid ventral fatty hernia stable appearance to comparison to the prior study of 2017. Other findings: Osteoporosis. Beam hardening artifact generated from the metal is obscuring anatomic detail of the lower pelvis. IMPRESSION: 1. Small hiatal hernia. 2. There is a diffuse decrease in hepatic parenchymal density, consistent with fatty infiltration. 3. Moderate diverticulosis is present in the distal colon. No diverticulitis. 4. No acute findings. Electronically signed by: Yash Jackson On 05/05/2019 18:46:50 PM
--- NOTE | 2019-05-05 18:49 | REPVR ---
EXAM: CT Left Lower Extremity Without Contrast, Hip EXAM DATE/TIME: 05/05/2019 6:20 PM CLINICAL HISTORY: 69 years old, female; Pain; Hip; Left; Additional info: Trauma TECHNIQUE: Imaging protocol: CT of the Left lower extremity without contrast was performed. Exam focused on the hip. Radiation optimization: All CT scans at this facility use at least one of these dose optimization techniques: automated exposure control; mA and/or kV adjustment per patient size (includes targeted exams where dose is matched to clinical indication); or iterative reconstruction. COMPARISON: CT ABD PELVIS WITH CONTRAST 10/27/2016 5:00 PM FINDINGS: Bones/joints: Status post total left hip replacement. Corticated bone fragments at the level of the femoral neck likely postsurgical. No acute findings. Soft tissues: Soft tissue inflammation demonstrated along the medial proximal thigh has been noted previously but has increased in size. Possibility of changes related to acute trauma not excluded. IMPRESSION: 1. Status post total left hip replacement. No acute findings. 2. Soft tissue inflammation demonstrated along the medial proximal thigh has been noted previously but has increased in size. Possibility of changes related to acute trauma not excluded. Electronically signed by: Yash Jackson On 05/05/2019 18:49:51 PM
--- NOTE | 2019-05-05 18:54 | REPVR ---
EXAM: CT Chest With Contrast EXAM DATE/TIME: 05/05/2019 6:20 PM CLINICAL HISTORY: 69 years old, female; Pain; Other: Tr; Additional info: Trauma TECHNIQUE: Imaging protocol: Computed tomography of the chest with intravenous contrast. Radiation optimization: All CT scans at this facility use at least one of these dose optimization techniques: automated exposure control; mA and/or kV adjustment per patient size (includes targeted exams where dose is matched to clinical indication); or iterative reconstruction. Contrast material: ISOVUE 370; Contrast volume: 100 ml; Contrast route: IV; COMPARISON: CT Chest without contrast 01/09/2019 7:11 AM FINDINGS: Lungs: Bibasilar atelectasis. Small foci of subpleural scarring in both apices. Lungs otherwise clear. Pleural space: Unremarkable. No pneumothorax. No pleural effusion. Heart: There is mild atherosclerotic calcification of the coronary arteries. Mediastinum: A small hiatal hernia is present. Aorta: Unremarkable. No aortic aneurysm. Lymph nodes: Unremarkable. No enlarged lymph nodes. Bones/joints: Old rib fractures right third through sixth ribs. No acute fractures. Soft spine mild Soft tissues: Unremarkable. IMPRESSION: 1. Small hiatal hernia. 2. No acute findings. Electronically signed by: Yash Jackson On 05/05/2019 18:53:33 PM
[2019-05-05] MEDS ORDERED: NORCO, ANEXSIA 5/325MG TABLET (HYDROcodone/ACETAMINOPHEN) PO ONE (19:45)
[2019-05-05] MEDS ORDERED: NORC1TAB7 PO (22:14)
[2019-05-05] MEDS ORDERED: NORCO 5/325MG TABLET (BULK FOR ED) PO ONE (22:15)
[2019-05-05 22:41] VITALS: BP 131/59
== END 2019-05-05 22:42 | disposition home or self-care (01) ==
LOC: M ED 16:05 → EDBD 16:05 → M ED 22:42
DX: S06.0X1A Concussion with loss of consciousness of 30 minutes or less, initial encounter (principal); V80.010A Animal-rider injured by fall from or being thrown from horse in noncollision accident, initial encounter; Y92.9 Unspecified place or not applicable; M47.812 Spondylosis without myelopathy or radiculopathy, cervical region; Z96.652 Presence of left artificial knee joint; K57.90 Diverticulosis of intestine, part unspecified, without perforation or abscess without bleeding; K44.9 Diaphragmatic hernia without obstruction or gangrene; J45.909 Unspecified asthma, uncomplicated; J44.9 Chronic obstructive pulmonary disease, unspecified; Z88.5 Allergy status to narcotic agent; Z88.2 Allergy status to sulfonamides; Z88.1 Allergy status to other antibiotic agents; Z88.8 Allergy status to other drugs, medicaments and biological substances; Z91.013 Allergy to seafood; Z79.899 Other long term (current) drug therapy
CPT/HCPCS: 70450; 71260; 72125; 73700; 74177; 80048; 80076; 80307; 81001; 82150; 82550; 82553; 83605; 83690; 84484; 85025; 85610; 85730; 86850; 86900; 86901; 87086; 93041; 94760; 96361; 96374; 99285; G0480; J2270; Q9967

== ENCOUNTER → 2019-05-12 | Outpatient (CLI) | payer MEDICARE ==
[~2019-05-12] MED LIST changes: +NORC1TAB7 PO
--- NOTE | 2019-05-14 02:15 | ECWPNPC ---
PATIENT NAME: RICKY GOLDMAN : 1950 GENDER: FEMALE VISIT DATE: 05/12/2019 DISCHARGE DATE: 05/12/19933 VISIT LOCKED DATE TIME: PHYSICIAN: LIUDMILA HOLM RESOURCE: LIUDMILA HOLM REASON FOR APPOINTMENT 1. 3 MONTHS HISTORY OF PRESENT ILLNESS HISTORY OF PRESENT ILLNESS: HERE FOR F/U OF CHRONIC LOW BACK PAIN.DESCRIBES PAIN CONSTANT AND SHARP.RATING PAIN VAS 6/10.PAIN IS WORSE WITH INCREASED ACTIVITY.REPORTING INCREASE IN LOW BACK PAIN OVER THE PAST 2 WEEKS .FEELS CURRENT CHRONIC PAIN MEDICATION IS EFFECTIVE AT REDUCING PAIN AND KEEPING HER FUNCTIONAL.RARE USE OF DILAUDID PRN FOR SEVERE PAIN EPISODES. PAIN THE PATIENT DESCRIBES THE PAIN... THE PATIENT DESCRIBES THE PAIN... THE PATIENT DESCRIBES THE PAIN... PAIN THE PATIENT DESCRIBES THE PAIN... THE PATIENT DESCRIBES THE PAIN... THE PATIENT DESCRIBES THE PAIN... FALL RISK SCREENING: SCREENING :NO FALLS REPORTED IN THE LAST YEAR CURRENT MEDICATIONS TAKING TRAZODONE 50 50MG TABLET 3 TABLETS ORAL BEFORE BEDTIME TAKING BUPROPION HCL ER (XL) 300 MG TABLET EXTENDED RELEASE 24 HOUR 1 TABLET IN THE MORNING ORALLY ONCE A DAY TAKING OMEPRAZOLE 20MG 20MG TABLET ORAL BID TAKING ONDANSETRON 8 MG TABLET DISPERSIBLE ORALLY PRN TAKING SENNA 8.6 MG CAPSULE 1-2 CAPSULES AT BEDTIME NEEDED ORALLY PRN TAKING DIPHENHYDRAMINE HCL 25 MG CAPSULE 1-2 CAPSULE NEEDED ORALLY EVERY 6 HRS PRN TAKING RESTASIS 0.05 % EMULSION 1 NULL INTO AFFECTED EYE OPHTHALMIC TWICE A DAY TAKING LISINOPRIL 5 MG TABLET 1 TABLET ORALLY ONCE A DAY TAKING PRAZOSIN HCL 1 MG ORALLY ONCE A DAY TAKING CITALOPRAM HYDROBROMIDE 30MG ORALLY ONCE A DAY TAKING BREO ELLIPTA 200-25 MCG/INH AEROSOL POWDER BREATH ACTIVATED 1 PUFF INHALATION ONCE A DAY TAKING ALBUTEROL SULFATE HFA 108 (90 BASE) MCG/ACT AEROSOL SOLUTION 2 PUFFS NEEDED INHALATION EVERY 6 HRS TAKING ALBUTEROL SULFATE (2.5 MG/3ML) 0.083% NEBULIZATION SOLUTION 3 ML NEEDED INHALATION EVERY 8 HRS TAKING DILAUDID 2 MG TABLET 1 TABLET NEEDED ORALLY CODE D FOR CHRONIC PAIN DAY PRN FOR PAIN MDD1 TAKING BACLOFEN 10 MG TABLET 1 TABLET WITH FOOD OR MILK ORALLY BEFORE BEDTIME TAKING GABAPENTIN 600 MG TABLET 1 TABLET ORALLY Q12H BID NOT-TAKING LEVSIN 0.125 MG TABLET 1 TABLET BEFORE MEALS NEEDED ORALLY EVERY 4 HRS PRN NOT-TAKING CETIRIZINE HCL 10 MG TABLET 1 TABLET ORALLY DAILY NOT-TAKING BUPROPION HCL 75 MG TABLET 1 TABLET ORALLY ONCE A DAY NOT-TAKING BUPROPION HCL 75 MG TABLET 1 TABLET ORALLY ONCE A DAY, NOTES: TAKES TOTAL OF 375MG NOT-TAKING MAGNESIUM SULFATE 1 TAB 400MGS ORAL DAILY NOT-TAKING DOXYCYCLINE HYCLATE 100 MG CAPSULE 1 CAPSULE ORALLY EVERY 12 HRS, NOTES: STARTED 05/21 NOT-TAKING PAZEO 0.7 % SOLUTION 1 DROP INTO AFFECTED EYE OPHTHALMIC ONCE A DAY MEDICATION LIST REVIEWED AND RECONCILED WITH THE PATIENT PAST MEDICAL HISTORY HTN DEPRESSION HIATLE HERNIA GERD PANCREATITUS HEARING LOSS IBS LUPUS RIGHT WRIST FX BILATERAL ANLKE FX OSTEOARTHRITIS ASTHMA MRSA RIGHT HIP PTSD OSTEOPENIA COPD ALLERGIES PENICILLIN (FOR ALLERGIES USE ONLY): ANAPHYLAXIS VANCOMYCIN HCL: ANAPHYLAXIS SULFA (FOR ALLERGY USE ONLY): ANAPHYLAXIS LACTOSE INTOLERANTE: GI DISTRESS REGLAN: HYPERTENSION CLINDAMYCIN HCL COMPAZINE CODEINE SULFATE: RESPIRATORY DISTRESS/CONFUSION VERSED: RESPIRATORY DISTRESS/CONFUSION CEPHALOSPORINS: RASH HIVES ERTHROMYCOIN: RASH HIVES KEFLEX: RASH HIVES NSAIDS: GI DISTRESS ASPIRIN: GI DISTRESS MORPHINE, NARCOTIC: AGGRESSION, CONFUSION AND AGGITATION - SIDE EFFECTS SHELL FISH AND IV CONTRAST (OLD ONE): RASH - ALLERGY SURGICAL HISTORY COLON RESCECTION SP SPONTAEOUS RUPTURE 1975 HYSTERECTOMY 1988 TOTAL LT HIP X2 1992 TOTAL RT HIP X3 1989 OVARIAN CYSTECTOMY 1987 HIP SPACER PLACED BILATERAL CATARACTS FAMILY HISTORY FATHER: MOTHER: 3 SISTER(S) . 3DAUGHTER(S) . 1 DAUGHTER DECEASED1 DAUGHTER LUPUS, FIBROMYALGA1 DAUGHTER ASTHMA, GLUTEN INTOLERANTSISTERS HTN, 1 COPD, OSTEOARTHRITIS. SOCIAL HISTORY GENERAL: TOBACCO USE ARE YOU A:[facility] CL[facility] PFS, CLERGY, PUBLIC HEALTH REFERRALS PFS REFERRAL NEEDED?NO CLERGY REFERRAL NEEDED?NO PUBLIC HEALTH REFERRAL NEEDED?NO WAS THE PROVIDER NOTIFIED OF ANY PERTINENT INFO?YES HAS THE PATIENT BEEN EDUCATED REGARDING HIS/HER PLAN OF CARE?YES HAS THE PATIENT BEEN EDUCATED REGARDING PAIN, THE RISK FOR PAIN, THE IMPORTANCE OF EFFECTIVE PAIN MANAGEMENT, AND THE PAIN ASSESSMENT PROCESS?YES LATEX QUESTIONNAIRE LATEX ALLERGY : HAVE YOU EVER DEVELOPED ANY TYPE OF REACTION AFTER HANDLING LATEX PRODUCTS SUCH RUBBER GLOVES, CONDOMS, DIAPHRAGMS, BALLOONS, SOCKS, OR UNDERWEAR?NO LATEX ALLERGY : HAVE YOU EVER DEVELOPED ANY TYPE OF REACTION DURING OR AFTER DENTAL APPOINTMENT, VAGINAL/RECTAL EXAMINATION, SURGICAL PROCEDURE, OR ANY OTHER EXPOSURE?NO LATEX RISK : HAVE YOU EVER HAD ANY DIFFICULTY BREATHING OR HIVES AFTER EATING OR HANDLING ANY FRUITS, OR VEGETABLES; SUCH KIWI, BANANAS, STONE FRUITS, OR CHESTNUTSYES - PLEASE INDICATE : KIWI LATEX RISK : DO YOU HAVE A PREVIOUS PERSONAL HISTORY OF MORE THAN NINE SURGERIES, SPINA BIFIDA, OR REPEATED CATHERIZATIONS? YES - PLEASE INDICATE : > 9 SURGERIES LATEX RISK : ARE YOU FREQUENTLY EXPOSED TO LATEX PRODUCTS IN YOUR OCCUPATION?NO DATE ASKED : 05/12/2019 CAFFEINE CAFFEINE USE?YES HOW OFTEN AND HOW MUCH? 3 CUPS COFFEE/DAY ADVANCE DIRECTIVE ADVANCE DIRECTIVE DISCUSSED WITH PATIENT:YES HEALTH CARE PROXY KATYA SCHAEFER SISTER [phone] MANDAEISM [id number] [employer]ABIANIST LANGUAGE LANGUAGES SPOKEN:NEPALI ALCOHOL SCREENING DID YOU HAVE A DRINK CONTAINING ALCOHOL IN THE PAST YEAR?YES HOW OFTEN DID YOU HAVE SIX OR MORE DRINKS ON ONE OCCASION IN THE PAST YEAR?NEVER (0 POINTS) HOW MANY DRINKS DID YOU HAVE ON A TYPICAL DAY WHEN YOU WERE DRINKING IN THE PAST YEAR?1 OR 2 (0 POINTS) HOW OFTEN DID YOU HAVE A DRINK CONTAINING ALCOHOL IN THE PAST YEAR?MONTHLY OR LESS (1 POINT) POINTS1 INTERPRETATIONNEGATIVE RECREATIONAL DRUG USE DRUG USE?NO OCCUPATION: RETIRED. LEARNING BARRIERS / SPECIAL NEEDS BARRIERS TO LEARNING?NO HEARING IMPAIRED?YES HEARING DEFICIT IN LEFT EAR. VISION IMPAIRED?YES COGNITIVELY IMPAIRED?NO : WEARS CORRECTIVE LENSES READINESS TO LEARN?YES REVIEWED 12/02/17 0913REVIEWED WITH PT 04/08/18 1660 LASREVIEWED WITH PATIENT 02/02/19 0855 JS. HOSPITALIZATION/MAJOR DIAGNOSTIC PROCEDURE MRSA TO RIGHT HIP 2009 REVIEW OF SYSTEMS REVIEWED BY: PROVIDER: LIUDMILA SEQUEIRA . CONSTITUTIONAL: ANY CHANGE IN YOUR MEDICAL CONDITION? NO . CHILLS NO . FEVER NO . INFECTION: DO YOU HAVE NEW INFECTIONS? NO . DO YOU HAVE HISTORY OF MRSA? NO . MUSCULOSKELETAL: ANY NEW PATTERNS OF PAIN OR NUMBNESS? YES, PT STATES THAT PAIN IS MORE CONSTANT IN LOW BACK, PT STATES THAT PAIN IS RADIATING DOWN LEFT LEG . GASTROENTEROLOGY: ANY NEW CHANGE IN BOWEL CONTROL? NO . GENITOURINARY: ANY NEW CHANGE IN BLADDER CONTROL? NO . IS THERE A CHANCE YOU COULD BE ? NO . HEMATOLOGY/LYMPH: DO YOU TAKE ANY BLOOD THINNERS? (FOR EXAMPLE- COUMADIN, PLAVIX, AGGRENOX, PLATEL, PRADAXA, OR XARELTO) NO . WHEN WAS YOUR LAST DOSE? DATE: TIME: . NEUROLOGY: HAVE YOU FALLEN IN THE PAST 12 MONTHS? YES, PT STATES THAT SHE FELL WHILE AT DAUGHTERS,TAKEN BY AMBULANCE TO ED. IMAGING DONE, PT STATES THAT SHE HAS RESIDUAL HEADACHE, PT STATES THAT SHE RECEIVED MORPHINE WHILE IN HOSPITAL . ANY NEW EXTREMITY NUMBNESS OR WEAKNESS? NO . CARDIOLOGY: DO YOU HAVE A PACEMAKER OR DEFIBRILLATOR? NO . RESPIRATORY: HAVE YOU BEEN SICK IN THE PAST WEEK? NO . FEVER NO . FLU LIKE SYMPTOMS? NO . COUGH NO . INTEGUMENTARY: DO YOU HAVE ANY RASHES OR OPEN SORES? NO . ALLERGIC/IMMUNO: ARE YOU ALLERGIC TO IV DYE? NO . ANY NEW ALLERGIES? NO . PSYCHIATRIC: DO YOU HAVE THOUGHTS OF HURTING YOURSELF OR SOMEONE ELSE? NO . ARE YOU ABUSED, NEGLECTED, OR IN AN UNSAFE ENVIRONMENT? NO . ENDOCRINOLOGY: ARE YOU DIABETIC? NO . OTHER: DO YOU NEED ANY PRESCRIPTIONS? YES, GABAPENTIN, HYDROMOPHONE . IF YES, PLEASE LIST: ____ . ANY NEW PROBLEMS WITH YOUR MEDICATIONS? NO . WHEN DID YOU LAST EAT? ____ . WHEN DID YOU LAST DRINK? ____ . WHAT DID YOU LAST DRINK? ____ . NAME OF PERSON DRIVING YOU HOME? ____ . DO YOU HAVE ANY OTHER QUESTIONS OR CONCERNS PT PLANS TO RECEIVE THE FLU SHOT ON JUN 02, 2019 . VITAL SIGNS WT 165 LBS, HT 64 IN, BMI 28.32 INDEX, BP 152/67 MM HG, HR 76 /MIN, RR 18 /MIN, TEMP 97.6 F, OXYGEN SAT % 96%, SAFE IN ENV? (Y/N) Y, NA INITIALS MS 08:58, REVIEWED BY: ROSANA. EXAMINATION GENERAL EXAMINATION: GENERALAWAKE,ALERT ,PLEAASANT . PSYCHAFFECT NORMAL . LUNGS:LUNG BARROW ARE CLEAR TO AUSCULTATION BILATERALLY. GOOD MOVEMENT OF AIR . HEART:S1, S2 IN A REGULAR RATE AND RHYTHM. NO SIGNIFICANT MURMURS, RUBS OR GALLOPS NOTED . ASSESSMENTS SPONDYLOSIS WITHOUT MYELOPATHY OR RADICULOPATHY, LUMBAR REGION - M47.816 (PRIMARY) SACROILIITIS, NOT ELSEWHERE CLASSIFIED - M46.1 TREATMENT SPONDYLOSIS WITHOUT MYELOPATHY OR RADICULOPATHY, LUMBAR REGION REFILL GABAPENTIN TABLET, 600 MG, 1 TABLET, ORALLY, Q12H BID, 30 DAY(S), 60, REFILLS 2 CONTINUE BACLOFEN TABLET, 10 MG, 1 TABLET WITH FOOD OR MILK, ORALLY, BEFORE BEDTIME, 30 DAYS, 30, REFILLS 5 REFILL DILAUDID TABLET, 2 MG, 1 TABLET NEEDED, ORALLY CODE D FOR CHRONIC PAIN, DAY PRN FOR PAIN MDD1, 60 DAYS, 20, REFILLS 0 NOTES: ISTOP REGISTRY REVIEWED AND DEMONSTRATES COMPLLIANCE. BRINGS IN MEDICATIONS WHICH IS APPROPRIATE FOR WHAT WAS DISPENSED. RECENT URINE TOXICOLOGY REVIEWED. NO UNAUTHORIZED MEDICATIONS. NO ILLICIT SUBSTANCES AND PRESCRIBED MEDICATIONS WERE PRESENT. , RISKS AND BENEFITS OF NARCOTIC/OPIOD MEDICATIONS WERE REVIEWED WITH PATIENT - THIS INCLUDES BUT IS NOT LIMITED TO RISK OF DEPENDANCE/DEVELOPMENT OF ADDICTION, MOOD DISTURBANCE AND DEPRESSION, OSTEOPOROSIS, HORMONAL AND LABIDAL CHANGES, RESPIRATORY DEPRESSION AND . PATIENT IS ADVISED NOT TO DRIVE OR DRINK ALCOHOL WHILE ON THESE MEDICATIONS. PROCEDURE CODES FA211 ESTABILISHED PATIENT [facility] FACILITY CHARGE DISPOSITION & COMMUNICATION FOLLOW UP 3 MONTHS (REASON: MED MGMNT) ELECTRONICALLY SIGNED BY FABBY SALAS ON 05/12/2019 AT 11:51 AM EDT DISCLAIMER : THIS IS A VISIT SUMMARY EXTRACTED FROM THE [employer] CHART. IT IS NOT A COPY OF THE [employer] PROGRESS NOTE. VALERIE
== END ==
LOC: M PAIN 08:45
PROVIDERS: ATTEND Nurse Practitioner Family
DX: M47.816 Spondylosis without myelopathy or radiculopathy, lumbar region (principal); M46.1 Sacroiliitis, not elsewhere classified; G89.29 Other chronic pain; I10 Essential (primary) hypertension; Z86.59 Personal history of other mental and behavioral disorders; K21.9 Gastro-esophageal reflux disease without esophagitis; M19.90 Unspecified osteoarthritis, unspecified site; J44.9 Chronic obstructive pulmonary disease, unspecified; Z86.14 Personal history of Methicillin resistant Staphylococcus aureus infection; M85.88 Other specified disorders of bone density and structure, other site; Z96.643 Presence of artificial hip joint, bilateral; Z88.0 Allergy status to penicillin; Z88.1 Allergy status to other antibiotic agents; Z88.2 Allergy status to sulfonamides; Z88.5 Allergy status to narcotic agent; Z88.6 Allergy status to analgesic agent; Z88.8 Allergy status to other drugs, medicaments and biological substances; Z91.013 Allergy to seafood; Z91.041 Radiographic dye allergy status; Z79.51 Long term (current) use of inhaled steroids; Z79.899 Other long term (current) drug therapy

== ENCOUNTER → 2019-08-11 | Outpatient (CLI) | payer MEDICARE ==
[~2019-08-11] MED LIST changes: +OMEP-172; -OMEP20CA4
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
== END ==
LOC: M PAIN 08:45
PROVIDERS: ATTEND Nurse Practitioner Family
DX: M47.816 Spondylosis without myelopathy or radiculopathy, lumbar region (principal); M46.1 Sacroiliitis, not elsewhere classified; G89.29 Other chronic pain; I10 Essential (primary) hypertension; Z86.59 Personal history of other mental and behavioral disorders; K21.9 Gastro-esophageal reflux disease without esophagitis; J45.909 Unspecified asthma, uncomplicated; Z86.14 Personal history of Methicillin resistant Staphylococcus aureus infection; J44.9 Chronic obstructive pulmonary disease, unspecified; Z96.643 Presence of artificial hip joint, bilateral; Z88.0 Allergy status to penicillin; Z88.1 Allergy status to other antibiotic agents; Z88.2 Allergy status to sulfonamides; Z88.5 Allergy status to narcotic agent; Z88.6 Allergy status to analgesic agent; Z91.013 Allergy to seafood; Z91.041 Radiographic dye allergy status; Z79.51 Long term (current) use of inhaled steroids; Z79.899 Other long term (current) drug therapy

== ENCOUNTER → 2021-01-20 | Outpatient (CLI) | payer MEDICARE ==
[~2021-01-20] MED LIST changes: -BUPR300T34; +BUPR300T92; +GABA-283; -GABA-845; -LISI-1046; +LISI2.5T2; -OMEP-172; +OMEP1CAP73
[2021-01-20 10:46] LABS: BASO # 0.1 10^3/uL (0.0-0.2); BASO % 1.3 % (0.0-1.0); EOS # 0.1 10^3/uL (0.0-0.5); EOS % 1.8 % (0.0-3.0); HEMATOCRIT 37.6 % (36.0-47.0); HEMOGLOBIN 11.9 g/dl (12.0-15.5); LYMPH # 1.4 10^3/uL (1.5-5.0); LYMPH % 22.7 % (24.0-44.0); MEAN CORPUSCULAR HEMOGLOBIN 31.7 pg (27.0-33.0); MEAN CORPUSCULAR HGB CONC 31.6 g/dl (32.0-36.5); MEAN CORPUSCULAR VOLUME 100.3 fl (80.0-96.0); MONO # 0.7 10^3/uL (0.0-0.8); MONO % 11.8 % (2.0-8.0); NEUTROPHILS # 3.8 10^3/uL (1.5-8.5); NEUTROPHILS % 62.2 % (36.0-66.0); PLATELET COUNT, AUTOMATED 307 10^3/uL (150-450); RED BLOOD COUNT 3.75 10^6/uL (4.00-5.40); WHITE BLOOD COUNT 6.1 10^3/uL (4.0-10.0)
[2021-01-20 11:04] LABS: ERYTHROCYTE SEDIMENTATION RATE 7 mm/hr (0-30)
[2021-01-20 11:15] LABS: ALBUMIN 3.5 GM/DL (3.2-5.2); ALT/SGPT 26 U/L (12-78); BILIRUBIN,TOTAL 0.4 MG/DL (0.2-1.0); BLOOD UREA NITROGEN 21 MG/DL (7-18); CALCIUM LEVEL 8.8 MG/DL (8.8-10.2); CARBON DIOXIDE LEVEL 29 MEQ/L (21-32); CHLORIDE LEVEL 108 MEQ/L (98-107); CREATININE FOR GFR 0.83 MG/DL (0.55-1.30); GLOMERULAR FILTRATION RATE > 60.0 (>39); GLUCOSE, FASTING 104 MG/DL (70-100); POTASSIUM SERUM 4.2 MEQ/L (3.5-5.1); SODIUM LEVEL 142 MEQ/L (136-145); TOTAL PROTEIN 6.1 GM/DL (6.4-8.2)
== END ==
LOC: M PLALAB 09:00
PROVIDERS: ATTEND Internal Medicine Rheumatology
DX: M32.19 Other organ or system involvement in systemic lupus erythematosus (principal); M19.90 Unspecified osteoarthritis, unspecified site; M25.50 Pain in unspecified joint; Z79.899 Other long term (current) drug therapy; F51.01 Primary insomnia; F41.1 Generalized anxiety disorder; F34.1 Dysthymic disorder; Z62.810 Personal history of physical and sexual abuse in childhood

== ENCOUNTER → 2021-05-03 | Outpatient (REF) | payer MEDICARE ==
[~2021-05-03] MED LIST changes: -LISI2.5T2; +LISI2.5T9
== END ==
LOC: M LAB REF 15:53
PROVIDERS: ATTEND Internal Medicine Pulmonary Disease
DX: J47.9 Bronchiectasis, uncomplicated (principal)

== ENCOUNTER → 2021-10-19 | Outpatient (REF) | payer MEDICARE | LOC: M LAB REF 11:52 | PROVIDERS: ATTEND Nurse Practitioner Adult Health | DX: M25.50 Pain in unspecified joint (principal) ==

== ENCOUNTER → 2021-12-07 | Outpatient (REF) | payer MEDICARE | LOC: M LAB REF 16:15 | PROVIDERS: ATTEND Nurse Practitioner Adult Health | DX: G89.4 Chronic pain syndrome (principal) ==

== ENCOUNTER → 2021-12-14 | Outpatient (REF) | payer MEDICARE ==
[2021-12-14 17:43] LABS: TOTAL PROTEIN 6.3 GM/DL (6.4-8.2)
== END ==
LOC: M LAB REF 16:41
PROVIDERS: ATTEND Internal Medicine Nephrology
DX: N18.31 Chronic kidney disease, stage 3a (principal)

== ENCOUNTER → 2022-08-15 | Outpatient (REF) | payer MEDICARE ==
[~2022-08-15] MED LIST changes: +ALBU2.5V10; -ALBU83IN
[2022-08-15 15:23] LABS: PERCENT SATURATION 28.8 % (13.2-45.0)
== END ==
LOC: M LAB REF 13:02
PROVIDERS: ATTEND Nurse Practitioner Adult Health
DX: N18.31 Chronic kidney disease, stage 3a (principal); D63.1 Anemia in chronic kidney disease

== ENCOUNTER → 2022-10-18 | Outpatient (CLI) | payer MEDICARE ==
[~2022-10-18] MED LIST changes: -BACL10TA2; +BACL10TA2 PO; +BUPR300T92 PO; -CITA20TA6; +CITA20TA6 PO; +CVS5000S2 PO; +FOLI1TAB11 PO; -HYDR200T3; +HYDR200T3 PO; +LEFL1TAB4 PO; +LISI5TAB11 PO; +MONT10TA97 PO; +PEPC1TAB5 PO; -PRAZ1CAP; +PRAZ1CAP PO; +ROSU10TA6 PO; +SENN18TA PO; +TRAZ-257 PO
== END ==
LOC: M LABSMTC 10:02
PROVIDERS: ATTEND Anesthesiology
DX: Z01.812 Encounter for preprocedural laboratory examination (principal); Z11.52 Encounter for screening for COVID-19

== ENCOUNTER 2022-10-23 11:05 | Day surgery (SDC) | payer MEDICARE ==
[~2022-10-23] VITALS: Ht 162.6 cm; Wt 63.0 kg
[~2022-10-23 11:05] MED LIST changes: +NS 1,000 ML IV ONE
[2022-10-23] MEDS ORDERED: LIDOCAINE 2% 100MG/5ML SDV (FOR ANES.) As Ordered ONE (13:11)
[2022-10-23] MEDS ORDERED: propofoL 200 MG/20 ML VIAL As Ordered ONE ×2 (13:11→13:44)
[2022-10-23 14:29] VITALS: BP 157/71
== END 2022-10-23 14:31 | disposition home or self-care (01) ==
LOC: M OPP 11:05
PROVIDERS: ATTEND Internal Medicine Gastroenterology
DX: D12.0 Benign neoplasm of cecum (principal); D12.2 Benign neoplasm of ascending colon; K57.30 Diverticulosis of large intestine without perforation or abscess without bleeding; K64.4 Residual hemorrhoidal skin tags; K64.8 Other hemorrhoids; R19.5 Other fecal abnormalities; K44.9 Diaphragmatic hernia without obstruction or gangrene; K21.00 Gastro-esophageal reflux disease with esophagitis, without bleeding; K29.70 Gastritis, unspecified, without bleeding; K30 Functional dyspepsia; J45.909 Unspecified asthma, uncomplicated; M79.7 Fibromyalgia; M32.9 Systemic lupus erythematosus, unspecified; M81.0 Age-related osteoporosis without current pathological fracture; Z79.51 Long term (current) use of inhaled steroids; Z79.899 Other long term (current) drug therapy; Z88.1 Allergy status to other antibiotic agents; Z88.2 Allergy status to sulfonamides; Z88.5 Allergy status to narcotic agent; Z88.6 Allergy status to analgesic agent; Z88.8 Allergy status to other drugs, medicaments and biological substances; Z91.013 Allergy to seafood; Z86.74 Personal history of sudden cardiac arrest; Z90.49 Acquired absence of other specified parts of digestive tract

== ENCOUNTER → 2022-11-12 | Outpatient (CLI) | payer MEDICARE ==
[~2022-11-12] MED LIST changes: +E-Z-GAS II EFFERVESCENT PACKET (SODIUM BICARB./CITRIC ACID/SIMETHICONE) As Ordered ONE; +E-Z-PAQUE 96% w/w SUSP 176GM BTL As Ordered ONE; -NS 1,000 ML IV ONE
== END ==
LOC: M RAD 10:28
PROVIDERS: ATTEND Internal Medicine Gastroenterology
DX: R10.13 Epigastric pain (principal)

== ENCOUNTER → 2022-12-13 | Outpatient (CLI) | payer MEDICARE ==
[~2022-12-13] MED LIST changes: +E-Z-HD 98% w/w 340GM SUSP BTL As Ordered ONE
== END ==
LOC: M RAD 07:48
PROVIDERS: ATTEND Internal Medicine Gastroenterology
DX: R10.13 Epigastric pain (principal)

== ENCOUNTER → 2023-04-08 | Outpatient (REF) | payer MEDICARE ==
[~2023-04-08] MED LIST changes: -E-Z-GAS II EFFERVESCENT PACKET (SODIUM BICARB./CITRIC ACID/SIMETHICONE) As Ordered ONE; -E-Z-HD 98% w/w 340GM SUSP BTL As Ordered ONE; -E-Z-PAQUE 96% w/w SUSP 176GM BTL As Ordered ONE; -GABA-283; +GABA-284; -HYDR200T3 PO; +HYDR200T46 PO; +SENN-111 PO; -SENN18TA PO
== END ==
LOC: M LAB REF 11:17
PROVIDERS: ATTEND Internal Medicine
DX: R19.7 Diarrhea, unspecified (principal)

== ENCOUNTER → 2023-05-08 | Outpatient (REF) | payer MEDICARE | LOC: M LAB REF 10:01 | PROVIDERS: ATTEND Nurse Practitioner Family | DX: R19.7 Diarrhea, unspecified (principal) ==

== ENCOUNTER → 2023-08-08 | Outpatient (CLI) | payer MEDICARE | LOC: M PLAIMG 08:01 | PROVIDERS: ATTEND Internal Medicine Critical Care Medicine | DX: R91.8 Other nonspecific abnormal finding of lung field (principal) ==

== ENCOUNTER 2023-10-16 19:11 | Observation (INO) | payer MEDICARE ==
[~2023-10-16] VITALS: Ht 162.6 cm; Wt 61.2 kg
[~2023-10-16 19:11] MED LIST changes: -LEFL1TAB4 PO; +LEFL20TA15 PO
[2023-10-16 19:40] LABS: BASO # 0.1 10^3/uL (0.0-0.2); BASO % 0.9 % (0.0-1.0); EOS # 0.2 10^3/uL (0.0-0.5); EOS % 2.8 % (0.0-3.0); HEMATOCRIT 37.5 % (36.0-47.0); HEMOGLOBIN 12.1 g/dl (12.0-15.5); LYMPH # 1.2 10^3/uL (1.5-5.0); LYMPH % 21.3 % (24.0-44.0); MEAN CORPUSCULAR HEMOGLOBIN 32.6 pg (27.0-33.0); MEAN CORPUSCULAR HGB CONC 32.3 g/dl (32.0-36.5); MEAN CORPUSCULAR VOLUME 101.1 fl (80.0-96.0); MONO # 0.6 10^3/uL (0.0-0.8); MONO % 11.7 % (2.0-8.0); NEUTROPHILS # 3.4 10^3/uL (1.5-8.5); NEUTROPHILS % 63.1 % (36.0-66.0); PLATELET COUNT, AUTOMATED 265 10^3/uL (150-450); RED BLOOD COUNT 3.71 10^6/uL (4.00-5.40); WHITE BLOOD COUNT 5.4 10^3/uL (4.0-10.0)
[2023-10-16] MEDS ORDERED: fentaNYL 100 MCG/2 ML INJECTION IV ONE (19:50)
[2023-10-16] MEDS: ONDANSETRON 4MG 2ML VIAL IV ONE (20:02)
[2023-10-16] MEDS: HYDROMORPHONE HCL 0.5 MG/ 0.5 ML SYRINGE IV ONE (20:02)
[2023-10-16] MEDS: NS 1,000 ML IV ONE (20:02)
[2023-10-16 20:14] LABS: ALBUMIN 3.8 G/DL (3.2-5.2); BILIRUBIN,DIRECT 0.1 MG/DL (<0.4); BILIRUBIN,TOTAL 0.3 MG/DL (0.3-1.2); CALCIUM LEVEL 8.7 MG/DL (8.3-10.6); CK-MB VALUE MASS 1.9 NG/ML (<3.6); CREATININE FOR GFR 1.19 MG/DL (0.55-1.30); GLOMERULAR FILTRATION RATE 47.3 (>39); MAGNESIUM LEVEL 2.1 MG/DL (1.8-2.4); POTASSIUM SERUM 4.1 MMOL/L (3.5-5.1)
[2023-10-16 20:17] LABS: MB/CK RELATIVE INDEX 1.54 (< OR =4)
[2023-10-16 20:22] LABS: INR 0.97; PROTHROMBIN TIME 12.6 SECONDS (12.5-14.5)
[2023-10-16 20:44] LABS: RSV AMPLIFICATION NEGATIVE (NEGATIVE)
[2023-10-16] MEDS ORDERED: BREO1INH3 INH (22:37)
[2023-10-16] MEDS ORDERED: CREO24CA PO (22:44)
[2023-10-16] MEDS ORDERED: VENTAER INH (22:46)
[2023-10-16] MEDS ORDERED: AZAT50TA37 PO (22:48)
[2023-10-16] MEDS ORDERED: VITA500T40 PO (22:48)
[2023-10-16] MEDS ORDERED: SIME180C25 PO (22:51)
[2023-10-16] MEDS ORDERED: HOME MED LIST COMPLETE! XX SCH (23:05)
[2023-10-16] MEDS ORDERED: BISACODYL 10MG SUPP PR PRN (23:35)
[2023-10-17 00:33] VITALS: BP 168/76; TEMP 98.6; O2SAT 97
[2023-10-17] MEDS: ACETAMINOPHEN TAB 650MG DOSE (2X325MG) PO PRN (00:45)
[2023-10-17 05:47] LABS: HEMOGLOBIN 10.7 g/dl (12.0-15.5); MEAN CORPUSCULAR HEMOGLOBIN 32.7 pg (27.0-33.0); MEAN CORPUSCULAR HGB CONC 32.4 g/dl (32.0-36.5); MEAN CORPUSCULAR VOLUME 100.9 fl (80.0-96.0); PLATELET COUNT, AUTOMATED 236 10^3/uL (150-450); RED BLOOD COUNT 3.27 10^6/uL (4.00-5.40); WHITE BLOOD COUNT 4.9 10^3/uL (4.0-10.0)
[2023-10-17 06:15] LABS: BILIRUBIN,TOTAL 0.4 MG/DL (0.3-1.2); CALCIUM LEVEL 8.6 MG/DL (8.3-10.6); CREATININE FOR GFR 1.14 MG/DL (0.55-1.30); GLOMERULAR FILTRATION RATE 49.7 (>39); MAGNESIUM LEVEL 1.9 MG/DL (1.8-2.4); POTASSIUM SERUM 4.2 MMOL/L (3.5-5.1); TOTAL PROTEIN 4.8 G/DL (5.7-8.2)
[2023-10-17 06:24] VITALS: BP 130/62; TEMP 97.9; O2SAT 95
[2023-10-17] MEDS: DOCUSATE SODIUM 100MG CAPSULE PO SCH (08:45)
[2023-10-17] MEDS ORDERED: ALBUTEROL 90 MCG/ACT 8GM HFA INHALER INH PRN (11:25)
[2023-10-17] MEDS: buPROPion **XL** TABLET 150MG (WELLBUTRIN XL) PO SCH (12:15)
[2023-10-17] MEDS: FOLIC ACID 1MG TAB PO SCH (12:15)
[2023-10-17] MEDS: CitaloPRAM (CeleXA) 20 MG TAB PO SCH (12:16)
[2023-10-17] MEDS: CREON-24 CAPSULE PO SCH (13:05)
[2023-10-17] MEDS: CYANOCOBALAMIN 500 MCG TAB PO SCH (13:05)
[2023-10-17] MEDS: FAMOTIDINE 20 MG TAB PO SCH (13:05)
[2023-10-17] MEDS: HYDROXYCHLOROQUINE 200 MG TAB PO SCH (13:11)
[2023-10-17 14:00] VITALS: BP 158/75; TEMP 98.1; O2SAT 97
[2023-10-17] MEDS ORDERED: PILL CUTTER 1 EACH XX PRN (14:50)
[2023-10-17] MEDS ORDERED: MONTELUKAST 10 MG TAB PO SCH (21:00)
[2023-10-17] MEDS ORDERED: PREVNAR-20 VACCINE 0.5ML SYRINGE IM.IMMUN ONE (21:00)
[2023-10-17] MEDS ORDERED: traZODone 100 MG TAB PO SCH (21:00)
[2023-10-17] MEDS ORDERED: BACLOFEN 10 MG TAB PO SCH (21:00)
[2023-10-17] MEDS ORDERED: PRAZOSIN 1 MG CAP PO SCH (21:00)
[2023-10-18] MEDS ORDERED: azaTHIOprine 10MG/ML SUSP *COMPOUNDED* 40ML BOTTLE PO SCH (09:00)
[2023-10-18] MEDS ORDERED: ENOXAPARIN 40MG/0.4ML SYRINGE (J1650 PER 10MG) SC SCH (09:00)
[2023-10-18] MEDS ORDERED: ROSUVASTATIN 10 MG TAB (CRESTOR) PO SCH (09:00)
== END 2023-10-17 16:45 | disposition home or self-care (01) ==
LOC: M ED 19:11 → EDBD 19:11 → M ED INP 22:49 → INTOOBSV 22:49 → ENRESERV 10-17 00:14 → M MSPAV 10-17 00:33
PROVIDERS: ADMIT Family Medicine; ATTEND Student in an Organized Health Care Education/Training Program
DX: K43.0 Incisional hernia with obstruction, without gangrene (principal); R10.9 Unspecified abdominal pain; R11.2 Nausea with vomiting, unspecified; N18.9 Chronic kidney disease, unspecified; K86.89 Other specified diseases of pancreas; M32.9 Systemic lupus erythematosus, unspecified; Z82.49 Family history of ischemic heart disease and other diseases of the circulatory system; Z80.9 Family history of malignant neoplasm, unspecified; Z82.61 Family history of arthritis; Z88.2 Allergy status to sulfonamides; Z88.1 Allergy status to other antibiotic agents; Z88.5 Allergy status to narcotic agent; Z88.4 Allergy status to anesthetic agent; Z88.8 Allergy status to other drugs, medicaments and biological substances; Z79.899 Other long term (current) drug therapy
CPT/HCPCS: 36415; 74176; 80048; 80053; 80076; 82550; 82553; 83605; 83690; 83735; 84484; 85025; 85027; 85610; 86850; 86900; 86901; 87631; 93005; 93041; 96374; 96375; 99285; G0378; J1170; J2405

== ENCOUNTER 2023-11-15 09:51 | Day surgery (SDC) | payer MEDICARE ==
[~2023-11-15] VITALS: Ht 162.6 cm; Wt 61.0 kg
[~2023-11-15 09:51] MED LIST changes: +AZAT50TA37 PO; +BREO1INH3 INH; +CREO24CA PO; +SIME180C25 PO; +VENTAER INH; +VITA500T40 PO
[2023-11-15] MEDS ORDERED: LR 1,000 ML IV SCH ×2 (10:30→14:25)
[2023-11-15] MEDS ORDERED: propofoL 200 MG/20 ML VIAL As Ordered ONE (11:02)
[2023-11-15] MEDS ORDERED: ONDANSETRON 4MG 2ML VIAL As Ordered ONE (11:02)
[2023-11-15] MEDS ORDERED: ROCURONIUM BROMIDE 50MG/5ML VIAL As Ordered ONE (11:02)
[2023-11-15] MEDS ORDERED: LIDOCAINE 2% 100MG/5ML SDV (FOR ANES.) As Ordered ONE (11:02)
[2023-11-15] MEDS ORDERED: MIDAZOLAM INJ 2MG/2ML VIAL As Ordered ONE (11:03)
[2023-11-15] MEDS ORDERED: fentaNYL 250 MCG/5 ML INJECTION As Ordered ONE (11:03)
[2023-11-15] MEDS ORDERED: dexmedeTOMIDine (4MCG/ML)200MCG/50ML BTL (PRECEDEX) As Ordered ONE (11:34)
[2023-11-15] MEDS ORDERED: KETOROLAC 60MG 2ML VIAL As Ordered ONE (11:37)
[2023-11-15] MEDS ORDERED: SUGAMMADEX SODIUM 500 MG/5 ML VIAL (BRIDION) As Ordered ONE (11:38)
[2023-11-15] MEDS: ceFAZolin SOD 2 GM in IV 1 EA IV ONE (12:12)
[2023-11-15] MEDS ORDERED: DILA2TAB6 PO (12:17)
[2023-11-15] MEDS: HEPARIN SOD (PORCINE) 5000UNITS/ML 1ML VIAL/SYRINGE SQ ONE (12:49)
[2023-11-15] MEDS ORDERED: HYDROmorphone HCL 2MG/ML 1ML VIAL As Ordered ONE (12:57)
[2023-11-15] MEDS ORDERED: GLYCOPYRROLATE INJ 0.2 MG/ML 2 ML VIAL As Ordered ONE (13:10)
[2023-11-15] MEDS ORDERED: ACETAMINOPHEN 1000MG 100ML IV BAG As Ordered ONE (13:39)
[2023-11-15] MEDS ORDERED: ePHEDrine SULFATE 25 MG/5 ML(5MG/ML) SYRINGE As Ordered ONE (13:48)
[2023-11-15] MEDS ORDERED: LABETALOL 100MG/20ML VIAL As Ordered ONE (14:21)
[2023-11-15] MEDS ORDERED: ONDANSETRON 4MG 2ML VIAL IV PRN (14:25)
[2023-11-15] MEDS ORDERED: fentaNYL 100 MCG/2 ML INJECTION IV PRN (14:25)
[2023-11-15] MEDS: HYDROMORPHONE HCL 0.5 MG/ 0.5 ML SYRINGE IV PRN (14:53)
[2023-11-15 19:30] VITALS: BP 172/72; TEMP 98.3; O2SAT 96
[2023-11-15] MEDS: ACETAMINOPHEN 500 MG TAB PO STA (19:44)
[2023-11-16] MEDS ORDERED: DILA2TAB6 PO (09:33)
[2023-11-16] MEDS ORDERED: CIPR250T26 PO (10:44)
== END 2023-11-15 20:15 | disposition home or self-care (01) ==
LOC: M SDC 09:51
PROVIDERS: ATTEND Surgery
DX: K43.6 Other and unspecified ventral hernia with obstruction, without gangrene (principal); I12.9 Hypertensive chronic kidney disease with stage 1 through stage 4 chronic kidney disease, or unspecified chronic kidney disease; N18.30 Chronic kidney disease, stage 3 unspecified; J44.9 Chronic obstructive pulmonary disease, unspecified; M32.9 Systemic lupus erythematosus, unspecified; E78.00 Pure hypercholesterolemia, unspecified; Z88.0 Allergy status to penicillin; Z79.899 Other long term (current) drug therapy; K58.9 Irritable bowel syndrome, unspecified; Z86.74 Personal history of sudden cardiac arrest; Z88.2 Allergy status to sulfonamides; Z88.5 Allergy status to narcotic agent; Z88.8 Allergy status to other drugs, medicaments and biological substances; Z88.6 Allergy status to analgesic agent; Z90.710 Acquired absence of both cervix and uterus; Z90.49 Acquired absence of other specified parts of digestive tract

== ENCOUNTER 2023-11-15 23:17 | Emergency (ER) | payer MEDICARE ==
[~2023-11-15] VITALS: Ht 162.6 cm; Wt 61.0 kg
[~2023-11-15 23:17] MED LIST changes: +DILA2TAB6 PO
[2023-11-15] MEDS ORDERED: KETOROLAC 30 MG/ML 1ML VIAL IV ONE (23:45)
[2023-11-16] MEDS: HYDROMORPHONE HCL 0.5 MG/ 0.5 ML SYRINGE IV ONE ×2 (00:12→03:31)
[2023-11-16] MEDS: ONDANSETRON 4MG 2ML VIAL IV ONE (00:12)
[2023-11-16] MEDS: NS 500 ML IV ONE (00:12)
[2023-11-16 00:18] LABS: BASO % 0.2 % (0.0-1.0); HEMATOCRIT 38.1 % (36.0-47.0); HEMOGLOBIN 12.5 g/dl (12.0-15.5); LYMPH # 0.5 10^3/uL (1.5-5.0); LYMPH % 4.6 % (24.0-44.0); MEAN CORPUSCULAR HEMOGLOBIN 32.8 pg (27.0-33.0); MEAN CORPUSCULAR HGB CONC 32.8 g/dl (32.0-36.5); MONO # 0.4 10^3/uL (0.0-0.8); MONO % 3.4 % (2.0-8.0); NEUTROPHILS # 9.9 10^3/uL (1.5-8.5); NEUTROPHILS % 91.5 % (36.0-66.0); PLATELET COUNT, AUTOMATED 270 10^3/uL (150-450); RED BLOOD COUNT 3.81 10^6/uL (4.00-5.40); WHITE BLOOD COUNT 10.8 10^3/uL (4.0-10.0)
[2023-11-16 00:45] LABS: CALCIUM LEVEL 8.6 MG/DL (8.3-10.6); CREATININE FOR GFR 1.1 MG/DL (0.55-1.30); GLOMERULAR FILTRATION RATE 51.8 (>39); MAGNESIUM LEVEL 1.9 MG/DL (1.8-2.4); POTASSIUM SERUM 4.6 MMOL/L (3.5-5.1)
[2023-11-16 08:00] VITALS: BP 126/62
[2023-11-16] MEDS: HYDROmorphone 2 MG TAB PO ONE (08:37)
[2023-11-16] MEDS ORDERED: MED REC IN PROGRESS XX SCH (08:45)
[2023-11-16] MEDS ORDERED: ISOVUE-370 76% 100ML VIAL As Ordered ONE (08:52)
[2023-11-16 09:02] VITALS: O2SAT 92
[2023-11-16] MEDS ORDERED: DILA2TAB6 PO (09:33)
[2023-11-16] MEDS ORDERED: HOME MED LIST COMPLETE! XX SCH (09:35)
[2023-11-16 09:37] LABS: ALBUMIN 3.1 G/DL (3.2-5.2); BILIRUBIN,DIRECT 0.2 MG/DL (<0.4); BILIRUBIN,TOTAL 0.5 MG/DL (0.3-1.2); TOTAL PROTEIN 5.5 G/DL (5.7-8.2)
[2023-11-16 09:56] LABS: RSV AMPLIFICATION NEGATIVE (NEGATIVE)
[2023-11-16] MEDS ORDERED: CIPR250T26 PO (10:44)
[2023-11-16] MEDS: CIPROFLOXACIN 500MG TABLET PO ONE (11:30)
[2023-11-16] MEDS: ACETAMINOPHEN TAB 650MG DOSE (2X325MG) PO ONE (11:47)
[2023-11-16 12:01] VITALS: TEMP 98.9
[2023-11-17] MEDS ORDERED: DILA2TAB6 PO (02:04)
== END 2023-11-16 12:15 | disposition home or self-care (01) ==
LOC: M ED 23:17
DX: N39.0 Urinary tract infection, site not specified (principal); R33.9 Retention of urine, unspecified; J93.9 Pneumothorax, unspecified; G89.18 Other acute postprocedural pain; K21.9 Gastro-esophageal reflux disease without esophagitis; J44.9 Chronic obstructive pulmonary disease, unspecified; E78.5 Hyperlipidemia, unspecified; M32.9 Systemic lupus erythematosus, unspecified; K43.6 Other and unspecified ventral hernia with obstruction, without gangrene; Z88.0 Allergy status to penicillin; Z88.2 Allergy status to sulfonamides; Z88.8 Allergy status to other drugs, medicaments and biological substances; Z91.013 Allergy to seafood; Z79.51 Long term (current) use of inhaled steroids; Z79.899 Other long term (current) drug therapy
CPT/HCPCS: 51702; 74177; 80048; 80076; 81001; 83690; 83735; 85025; 87086; 87631; 93041; 94760; 96374; 96375; 96376; 99285; J0131; J0665; J0690; J1100; J1170; J1885; J1920; J2250; J2405; J3010; Q9967

== ENCOUNTER 2023-11-16 22:36 | Emergency (ER) | payer MEDICARE ==
[~2023-11-16] VITALS: Ht 162.6 cm; Wt 65.8 kg
[~2023-11-16 22:36] MED LIST changes: +CIPR250T26 PO
[2023-11-16 23:29] LABS: BASO # 0.1 10^3/uL (0.0-0.2); BASO % 0.7 % (0.0-1.0); EOS # 0.1 10^3/uL (0.0-0.5); EOS % 0.7 % (0.0-3.0); HEMATOCRIT 34.6 % (36.0-47.0); HEMOGLOBIN 11.4 g/dl (12.0-15.5); LYMPH # 1.3 10^3/uL (1.5-5.0); LYMPH % 16.2 % (24.0-44.0); MEAN CORPUSCULAR HEMOGLOBIN 33.1 pg (27.0-33.0); MEAN CORPUSCULAR HGB CONC 32.9 g/dl (32.0-36.5); MEAN CORPUSCULAR VOLUME 100.6 fl (80.0-96.0); MONO % 12.7 % (2.0-8.0); NEUTROPHILS # 5.7 10^3/uL (1.5-8.5); NEUTROPHILS % 69.5 % (36.0-66.0); PLATELET COUNT, AUTOMATED 241 10^3/uL (150-450); RED BLOOD COUNT 3.44 10^6/uL (4.00-5.40); WHITE BLOOD COUNT 8.2 10^3/uL (4.0-10.0)
[2023-11-16 23:45] LABS: BILIRUBIN,TOTAL 0.5 MG/DL (0.3-1.2); CALCIUM LEVEL 8.8 MG/DL (8.3-10.6); CREATININE FOR GFR 1.22 MG/DL (0.55-1.30); POTASSIUM SERUM 4.3 MMOL/L (3.5-5.1)
[2023-11-17] MEDS ORDERED: DILA2TAB6 PO (02:04)
[2023-11-17] MEDS: HYDROmorphone 2 MG TAB PO ONE ×2 (02:10→02:19)
[2023-11-17] MEDS ORDERED: PILL CUTTER 1 EACH XX ONE (02:17)
[2023-11-17 02:19] VITALS: BP 138/63; TEMP 99.8; O2SAT 93
[2023-11-17] MEDS: CIPROFLOXACIN 250MG TAB PO ONE (02:19)
== END 2023-11-17 02:38 | disposition home or self-care (01) ==
LOC: M ED 22:36
DX: G89.18 Other acute postprocedural pain (principal); K21.9 Gastro-esophageal reflux disease without esophagitis; F43.10 Post-traumatic stress disorder, unspecified; Z88.8 Allergy status to other drugs, medicaments and biological substances; Z88.0 Allergy status to penicillin; Z88.2 Allergy status to sulfonamides; Z91.013 Allergy to seafood; Z79.51 Long term (current) use of inhaled steroids; Z79.899 Other long term (current) drug therapy

== ENCOUNTER → 2023-12-10 | Outpatient (REF) | payer MEDICARE ==
[2023-12-10 11:56] LABS: APPEARANCE, URINE HAZY (CLEAR); BACTERIA, URINE AUTO 1+ (NEGATIVE); BILIRUBIN, URINE AUTO NEGATIVE (NEGATIVE); BLOOD, URINE BLOOD NEGATIVE (NEGATIVE); COLOR, URINE AMBER (YELLOW); GLUCOSE, URINE (UA) AUTO NEGATIVE (NEGATIVE); KETONE, URINE AUTO TRACE mg/dL (NEGATIVE); LEUKOCYTE ESTERASE, URINE AUTO 1+ (NEGATIVE); MUCUS, URINE SMALL (NEGATIVE); NITRITE, URINE AUTO NEGATIVE (NEGATIVE); PROTEIN, URINE AUTO 1+ mg/dL (NEGATIVE); RBC, URINE AUTO 1 /HPF (0-3); SPECIFIC GRAVITY URINE AUTO 1.024 (1.002-1.035); SQUAMOUS EPITHELIAL CELL UR AU 4 /HPF (0-6); WBC, URINE AUTO 5 /HPF (0-3)
== END ==
LOC: M SMT 09:54
PROVIDERS: ATTEND Nurse Practitioner Family
DX: R33.9 Retention of urine, unspecified (principal)

== ENCOUNTER 2024-08-07 11:40 | Emergency (ER) | payer MEDICARE ==
[~2024-08-07] VITALS: Ht 162.6 cm; Wt 64.6 kg
[~2024-08-07 11:40] MED LIST changes: +BUPR-597; +BUPR-597 PO; -BUPR300T92; -BUPR300T92 PO; -ROSU10TA6 PO; +ROSU10TA61 PO; -SENN-111 PO; +SENN-165 PO; -SIME180C25 PO; +SIME1CAP4 PO
[2024-08-07 12:42] LABS: BASO # 0.1 10^3/uL (0.0-0.2); BASO % 0.6 % (0.0-1.0); EOS % 0.1 % (0.0-3.0); HEMATOCRIT 39.4 % (36.0-47.0); HEMOGLOBIN 12.6 g/dl (12.0-15.5); LYMPH # 0.6 10^3/uL (1.5-5.0); LYMPH % 7.1 % (24.0-44.0); MEAN CORPUSCULAR HEMOGLOBIN 33.3 pg (27.0-33.0); MEAN CORPUSCULAR VOLUME 104.2 fl (80.0-96.0); MONO # 0.2 10^3/uL (0.0-0.8); MONO % 2.4 % (2.0-8.0); NEUTROPHILS # 7.5 10^3/uL (1.5-8.5); NEUTROPHILS % 89.4 % (36.0-66.0); PLATELET COUNT, AUTOMATED 260 10^3/uL (150-450); RED BLOOD COUNT 3.78 10^6/uL (4.00-5.40); WHITE BLOOD COUNT 8.4 10^3/uL (4.0-10.0)
[2024-08-07 13:24] LABS: CREATININE FOR GFR 1.22 MG/DL (0.55-1.30); GLOMERULAR FILTRATION RATE 45.9 (>39); POTASSIUM SERUM 4.4 MMOL/L (3.5-5.1)
[2024-08-07] MEDS ORDERED: LEVO1TAB40 PO (14:20)
[2024-08-07 15:02] VITALS: BP 145/63; TEMP 96.9; O2SAT 97
== END 2024-08-07 15:08 | disposition home or self-care (01) ==
LOC: M ED 11:40
DX: N39.0 Urinary tract infection, site not specified (principal); N18.9 Chronic kidney disease, unspecified; Z88.0 Allergy status to penicillin; Z88.1 Allergy status to other antibiotic agents; Z88.2 Allergy status to sulfonamides; Z88.5 Allergy status to narcotic agent; Z88.8 Allergy status to other drugs, medicaments and biological substances; Z91.013 Allergy to seafood; Z79.51 Long term (current) use of inhaled steroids; Z79.2 Long term (current) use of antibiotics; Z79.899 Other long term (current) drug therapy

== ENCOUNTER → 2024-08-11 | Outpatient (CLI) | payer MEDICARE ==
[~2024-08-11] MED LIST changes: +LEVO1TAB40 PO
== END ==
LOC: M RAD 15:32
PROVIDERS: ATTEND Internal Medicine Critical Care Medicine
DX: R91.8 Other nonspecific abnormal finding of lung field (principal)

== ENCOUNTER → 2024-08-14 | Outpatient (CLI) | payer MEDICARE | LOC: M WUC 12:01 | PROVIDERS: ATTEND Nurse Practitioner Family | DX: M25.551 Pain in right hip (principal); M25.552 Pain in left hip; Z96.643 Presence of artificial hip joint, bilateral ==

== ENCOUNTER → 2024-09-28 | Outpatient (REF) | payer MEDICARE ==
[2024-09-28 18:25] LABS: TOTAL 25(OH) VITAMIN D 24.4 NG/ML (20.0-100.0)
[2024-09-28 18:27] LABS: FREE T4 1.18 NG/DL (0.89-1.76)
[2024-09-28 18:28] LABS: C REACTIVE PROTEIN QUANTITATIV < 0.50 MG/DL (<1.0)
== END ==
LOC: M LAB REF 17:04
PROVIDERS: ATTEND Internal Medicine Critical Care Medicine
DX: M32.10 Systemic lupus erythematosus, organ or system involvement unspecified (principal); Z79.899 Other long term (current) drug therapy

== ENCOUNTER → 2024-10-27 | Outpatient (CLI) | payer MEDICARE | LOC: M WHC 12:41 | PROVIDERS: ATTEND Student in an Organized Health Care Education/Training Program | DX: S82.64XA Nondisplaced fracture of lateral malleolus of right fibula, initial encounter for closed fracture (principal); S93.401A Sprain of unspecified ligament of right ankle, initial encounter; M25.471 Effusion, right ankle; M81.8 Other osteoporosis without current pathological fracture ==

== ENCOUNTER → 2025-01-08 | Outpatient (REF) | payer MEDICARE ==
[~2025-01-08] MED LIST changes: -BUPR-597; -BUPR-597 PO; +BUPR-766; +BUPR-766 PO
== END ==
LOC: M LAB REF 12:59
PROVIDERS: ATTEND Nurse Practitioner Family
DX: N39.0 Urinary tract infection, site not specified (principal)

== ENCOUNTER → 2025-01-21 | Outpatient (REF) | payer MEDICARE | LOC: M LAB REF 11:43 | PROVIDERS: ATTEND Nurse Practitioner Family | DX: N39.0 Urinary tract infection, site not specified (principal) ==